=== PATIENT | male | born 1955 | race Caucasian/White ===

== ENCOUNTER 2019-10-13 07:11 | Outpatient (CLI) | payer SELFPAY ==
[2019-10-13 08:10] LABS: Lithium 1.6 mmol/L (0.6-1.2)
[2019-10-13 08:15] LABS: Hemoglobin A1C 9.8 % (<5.7)
== END 2019-10-13 07:12 | disposition home or self-care (01) ==
PROVIDERS: PCP Family Medicine; Visit Provider Nurse Practitioner Family
DX: F31.9 Bipolar disorder, unspecified (principal); Z79.899 Other long term (current) drug therapy; E11.9 Type 2 diabetes mellitus without complications
CPT/HCPCS: 36415; 80178; 83036

== ENCOUNTER 2020-02-07 11:24 | Emergency (ER) | payer MEDICAID, SELFPAY ==
[2020-02-07] VITALS (10 sets, daily range): BP systolic 111–116; BP diastolic 70–85; PULSE 64; RESP 18; TEMP 36.6; O2SAT 94–100
--- NOTE | ~2020-02-07 | XR_ITS ---
XR hip RT min 3V w AP pelvis DATE: 02/07/2020 12:13 INDICATION: Fall. Right hip pain. TECHNIQUE: AP pelvis. AP, lateral and crosstable lateral views of right hip COMPARISON: 04/26/2018 pelvis and left hip FINDINGS: The pubic symphysis and sacroiliac joints are intact. No pelvic fracture or bone destructio n is evident. No fracture, dislocation, avascular necrosis or bone destruction of the right hip. Mild bilateral hip osteoarthritis. IMPRESSION: No pelvic or right hip fracture Reviewed, dictated and finalized at location B. WORKER WIRE FENCE ERECTOR
--- NOTE | ~2020-02-07 | XR_ITS ---
EXAMINATION: XR ankle RT min 3V EXAM DATE: 02/07/2020 12:13 INDICATION: Initial encounter following injury, with pain of the right ankle. TECHNIQUE: Right ankle frontal, lateral and oblique projections obtained and reviewed. There is no p rior study for comparison. FINDINGS: The right ankle mortise appears intact. Ossifications along the distal tibiofibular synd esmosis, could be sequela from prior injury. There are no acute fractures or dislocations identified. There is no subcutaneous gas. The soft tissue is unremarkable. There are no radiopaque foreign b odies. IMPRESSION: 1. Right ankle exam without acute osseous findings. 2. Distal tibiofibular syndesmotic ossifications likely from old injury. Reviewed, dictated and finalized at location A. N RESOURCES PROJECT MANAGER
--- NOTE | 2020-02-07 12:00 | ED.GENADULT ---
HPI - General Adult General Chief complaint: Fall Stated complaint: ankle pain, hip pain Time Seen by Provider: 02/07/20 11:43 Source: patient, family and EMS Mode of arrival: EMS Limitations: no limitations History of Present Illness HPI narrative: Patient is a 64-year-old male who presents to emergency department for evaluation of injuries to the right lower extremity patient was helping move a washing machine when it fell on the right ankle causing him to fall back and has since had aching pain of the ankle and right buttock patient denies head injury syncope loss of consciousness or other injuries presents per EMS has been unable to bear weight secondary to pain. Related Data Home Medications Medication Instructions Recorded Confirmed citalopram 20 mg tablet 20 mg PO DAILY 05/04/19 11/28/19 Allergies Allergy/AdvReac Type Severity Reaction Status Date / Time codeine Allergy Unknown Unknown Verified 02/07/20 11:42 Sulfa (Sulfonamide Allergy Unknown Unknown Verified 02/07/20 11:42 Antibiotics) Review of Systems Review of Systems: All systems reviewed & are unremarkable except as noted in HPI and below PMFSH Family History Family History Father Hypertension Cerebrovascular accident Family history of coronary artery disease Family history of cardiovascular disease Mother Family history of diabetes mellitus in first degree relative Sibling Diabetes mellitus Other Family history of malignant neoplasm Social History Social History Smoking status: Current every day smoker Smoking end date: 03/21/11 Alcohol intake: never Exam Narrative: Exam Narrative: GENERAL: Well-appearing, well-nourished, and in no acute distress. HEAD: Normocephalic, atraumatic. EYES: PERRLA and EOMI. ENT: Nares clear, no rhinorrhea or epistaxis. Mucous membranes moist. NECK: Supple. No adenopathy or masses. CHEST: Clear to auscultation. No respiratory distress. No wheezes rales or rhonchi HEART: Regular rate and rhythm. No murmur heard. Normal peripheral pulses. EXTREMITIES: Abrasions of the bilateral right ankle without swelling. Tenderness of the right hip and buttock no midline cervical thoracic or lumbar tenderness. SKIN: Warm, dry, no rash. NEURO: No focal deficits. Alert and oriented x3. Cranial nerves II through XII grossly intact. Neurovascularly intact PSYCH: Normal mood and affect. Course Course Emergency Course: Patient in the room in no distress no fractures seen on skeletal imaging patient aware of treatment plan diagnosis was able to ambulate with walker will be discharged home with follow-up with primary care given reasons to return Vital Signs Vital signs: Vital Signs Temperature 97.8 F 02/07/20 11:36 Pulse Rate 64 02/07/20 11:36 Respiratory Rate 18 02/07/20 11:36 Blood Pressure 116/85 02/07/20 11:36 Pulse Oximetry 98 02/07/20 11:36 Temperature 97.8 F 02/07/20 11:36 Pulse Rate 64 02/07/20 11:36 Respiratory Rate 18 02/07/20 11:36 Blood Pressure 111/70 02/07/20 11:46 Pulse Oximetry 94 02/07/20 13:22 Medical Decision Making MDM Narrative Medical decision making narrative: Patients injury or pain is consistent with musculoskeletal etiology. No signs of neurological or vascular compromise on exam. Compartments and tisues are soft without signs of compartment syndrome. Pain is felt appropriate for further evaluation on an outpatient basis. Vital Signs Vital Signs: Vital Signs Temperature 97.8 F 02/07/20 11:36 Pulse Rate 64 02/07/20 11:36 Respiratory Rate 18 02/07/20 11:36 Blood Pressure 116/85 02/07/20 11:36 Pulse Oximetry 98 02/07/20 11:36 Temperature 97.8 F 02/07/20 11:36 Pulse Rate 64 02/07/20 11:36 Respiratory Rate 18 02/07/20 11:36 Blood Pressure 111/70 02/07/20 11:46 Pulse Oximetry 94 02/07/20 13:22 Di
[2020-02-07] MEDS: SODIUM CHLORIDE 0.9% IV 500 ML 999 ML IV CONT (12:02)
[2020-02-07] MEDS: ONDANSETRON INJ 4 MG/2 ML VIAL IV PUSH (12:34)
[2020-02-07] MEDS: MORPHINE SULFATE (*CRX) 4 MG/ML INJ IV PUSH (12:34)
--- NOTE | 2020-02-07 12:35 | PC.NURSE ---
patient resting on stretcher. back from xray. repositioned in bed. SO in room. IVF, morphine and zofran given as ordered. patient and SO both refuse crutches at this time. patient states he is unsteady at home because he does not monitor his glucose, he cannot afford a glucometer and does not follow a diet.
--- NOTE | 2020-02-07 13:28 | PC.NURSE ---
patient ambulated approximately 15-20 feet with walker. has steady gait. provider notified.
== END 2020-02-07 13:49 | disposition home or self-care (01) ==
PROVIDERS: Emergency Provider Emergency Medicine; PCP Family Medicine
DX: S79.911A Unspecified injury of right hip, initial encounter (principal); S99.911A Unspecified injury of right ankle, initial encounter; W20.8XXA Other cause of strike by thrown, projected or falling object, initial encounter
CPT/HCPCS: 73502; 73610; 96361; 96374; 96375; 99284; J2270; J2405; J7040

== ENCOUNTER 2020-05-29 07:09 | Emergency (ER) | payer MEDICAID, SELFPAY ==
[2020-05-29] VITALS (15 sets, daily range): BP systolic 133–185; BP diastolic 82–113; PULSE 58–88; RESP 11–20; TEMP 37.2; O2SAT 93–99
--- NOTE | ~2020-05-29 | US_ITS ---
EXAMINATION: US abdomen limited DATE: 05/29/2020 09:08 INDICATION: Right upper quadrant pain TECHNIQUE: Multiple grayscale and Doppler ultrasound images of the abdomen were obtained. COMPARISON: 06/12/2014 FINDINGS: Bowel gas obscures visualization of the pancreas. The visualized portions of the pancreas a re unremarkable. The liver is normal with normal echogenicity and echotexture. No surface nodularity. Normal hepatopetal flow in the main portal vein. The gallbladder is normal with no abnormal wall thi ckening, pericholecystic fluid or stones. The normal common bile duct measures 5 mm. There was no son ographic Mcgarry sign. IMPRESSION: 1. Normal sonographic study of the gallbladder. Reviewed, dictated and finalized at location A. MATE CLERK
--- NOTE | ~2020-05-29 | CT_ITS ---
EXAMINATION: CT abdomen pelvis w con EXAM DATE: 05/29/2020 10:43 INDICATION: Upper abdominal pain. TECHNIQUE: Spiral CT of the abdomen and pelvis was performed following intravenous injection of 100 m L Omnipaque 350. Axial, coronal and sagittal images were reviewed. The dose-length product (DLP) fo r this examination was 405.44 mGy-cm. The exposure was tailored according to patient size (auto mA e xposure control), and iterative reconstruction (ASIR) was used as additional dose reduction technique . Comparison is made to prior examination from 12/29/2017. FINDINGS: There are several pancreatic head calcifications indicating chronic pancreatitis. Interval development cystic pancreatic mass measuring 1.4 x 2.0 cm (see axial image 39) in medial aspect of t he pancreatic body. This may be thick peripherally enhancing wall, could be cystic pancreatic maligna ncy (benign neoplasm or pseudocyst also possible). Liver, spleen, adrenal glands are unremarkable. Gallbladder is moderately distended but otherwise unr emarkable. No biliary obstruction. Portal and splenic veins are patent. Kidneys enhance symmetrica lly. There is no hydronephrosis. The prostate is unremarkable. The bladder is unremarkable. Ther e is no retroperitoneal or pelvic lymphadenopathy. There is mild to moderate scattered arterioscler otic disease. The appendix is normal. There is moderate sigmoid predominant colonic diverticulosis. There is no ad jacent inflammatory change to suggest diverticulitis. The stomach and small bowel are unremarkable. There is expected amount of colonic stool. No free intraperitoneal gas. The heart is normal in si ze. There are no pericardial or pleural effusions. The lung bases are unremarkable. There are no o steoblastic or osteolytic lesions identified. IMPRESSION: 1. Interval development of pancreatic body cystic mass suspicious for malignancy. The differential d iagnosis includes intraductal papillary mucinous neoplasm (IPMN), mucinous cystic neoplasm (MCN), pse udocyst, and the less common serous cystadenoma and neuroendocrine tumor. MR abdomen without and wi th contrast is recommended to confirm suspicion of enhancing wall. 2. Chronic pancreatitis. 3. Colonic diverticulosis. 4. No acute intra-abdominal findings. I discussed pancreatic mass, recommendation, other findings with Nicolasa Deluna MD at 05/29/2020 11:05 MINING ENGINEER . Reviewed, dictated and finalized at location B. NG ENGINEER IMPRESSION: 1. Interval development of pancreatic body cystic mass suspicious for malignan cy. The differential diagnosis includes intraductal papillary mucinous neoplasm (IPMN), mucinous cystic neoplasm (MCN), pseudocyst, and the less common serous cystadenoma and neuroendocrine tumor. MR abdomen without and with contrast i s recommended to confirm suspicion of enhancing wall. 2. Chronic pancreatitis. 3. Colonic diverticulosis. 4. No acute intra-abdominal findings. I discussed pancreatic mass, recommendation, other findings with Nicolasa guzman MD at 05/29/2020 11:05 MINING ENGINEER .
--- NOTE | 2020-05-29 07:20 | PC.NURSE ---
Pt does not require 1:[address] Deluna.
--- NOTE | 2020-05-29 07:21 | ED.ABDPAIN ---
HPI - Abdominal Pain General Chief Complaint: Abdominal Pain Stated Complaint: ABD pain Time Seen by Provider: 05/29/20 07:11 Source: patient Mode of arrival: EMS Limitations: no limitations History of Present Illness HPI narrative: This is a 64 year old male who presents for evaluation of epigastric abdominal pain that has been present for 1 week. This pain has been constant and it radiates to left upper abdomen and his back. His pain is worse at night especially when he lays down. He has associated nausea and sob today. He denies chest pain, diaphoresis, fever, chills. He has not taken anything for his pain. He states he was diagnosed with pancreatitis 2 years and this pain feels like the same pain. He thinks he may have an enlarged prostate because he reports frequent urination at night. HE denies dysuria or hematuria. MD elicited complaint: abdominal pain Related Data Home Medications Medication Instructions Recorded Confirmed citalopram 20 mg tablet 20 mg PO DAILY 05/04/19 05/12/20 Allergies Allergy/AdvReac Type Severity Reaction Status Date / Time Sulfa (Sulfonamide Allergy Mild rash Verified 05/29/20 07:54 Antibiotics) codeine AdvReac Mild nausea Verified 05/29/20 07:54 Review of Systems Review of Systems: All systems reviewed & are unremarkable except as noted in HPI and below Constitutional: Constitutional: Denies chills and Denies fever(s) Cardiovascular: Cardiovascular: Denies chest pain Respiratory: Respiratory: Denies cough and Reports dyspnea Gastrointestinal: Gastrointestinal: Reports abdominal pain, Denies constipation, Denies diarrhea, Reports nausea and Denies vomiting Genitourinary: Genitourinary: Denies hematuria, Denies oliguria, Denies dysuria and Reports urinary frequency Musculoskeletal: Musculoskeletal: Reports back pain [facility] Past Medical History Medical History (Updated 05/29/20 @ 11:24 by Nicolasa Deluna MD) Anxiety Bipolar disorder, unspecified Essential hypertension Mixed hyperlipidemia Surgical History Surgical History (Updated 05/29/20 @ 07:22 by Nicolasa Deluna MD) S/P CABG (coronary artery bypass graft) Family History Family History Father Hypertension Cerebrovascular accident Family history of coronary artery disease Family history of cardiovascular disease Mother Family history of diabetes mellitus in first degree relative Sibling Diabetes mellitus Other Family history of malignant neoplasm Social History Social History Smoking status: Current every day smoker Smoking end date: 03/21/11 Alcohol intake: never Exam Const: General: no acute distress and alert Orientation/consciousness: patient oriented x3 Eyes: EOM: EOMs intact bilaterally Chest: Chest palpation & inspection: normal inspection of the chest Resp: Effort & Inspection: normal respiratory effort and no retractions Auscultation: clear to auscultation bilaterally Cardio: Rate: regular rate Rhythm: regular rhythm Heart sounds: no murmurs GI: GI Palp: Yes Soft to palpation, Yes Tenderness to palpation present (GI) (RUQ, LUQ, epigastric), No Guarding due to palpation present (GI) and No Rigid due to palpation Auscultation: normal bowel sounds Skin: General skin exam: normal color Rashes: no rashes Neuro: General: patient oriented x3, moves all extremities and CN's II-XI intact bilaterally Course Reevaluation(s) Reevaluation #1: I discussed with patient CT findings and he will need to follow up with PCP for further evaluation cyst. No acute findings. He reports her pain has subsided. He is comfortable with discharge home. Date: 05/29/20 Time: 11:00 Consultations Consultation #1: I Discussed case with Dr. Voss who agrees to follow up with patient regarding today's visit and pancreatic cyst Date: 05/29/20 Time: 11:20 Vital Signs
--- NOTE | 2020-05-29 07:27 | ECG_ITS ---
Measurements Intervals [place] Rate: 80 P: 74 ME: 174 QRS: 57 QRSD: 100 T: 72 QT: 390 QTc: 452 Interpretive Statements SINUS RHYTHM POSSIBLE LEFT ATRIAL ENLARGEMENT LEFT VENTRICULAR HYPERTROPHY AND ST-T CHANGE BORDERLINE ST-T WAVE ABNORMALITY- INF/LAT LEADS BORDERLINE ECG Electronically Signed On 05-29-2020 8:20:54 PRODUCTION FOREMAN by Baltazar Lang D.O.
[2020-05-29] MEDS: ONDANSETRON INJ 4 MG/2 ML VIAL IV PUSH (07:42)
[2020-05-29] MEDS: PANTOPRAZOLE SODIUM IV 40 MG VIAL IV PUSH (07:45)
--- NOTE | 2020-05-29 07:45 | PC.NURSE ---
PT MADE AWARE OF URINE SAMPLE NEEDED. URINAL PROVIDED.
[2020-05-29] MEDS: MORPHINE SULFATE (*CRX) 4 MG/ML INJ 6 MG IV PUSH (07:54)
--- NOTE | 2020-05-29 08:15 | PC.NURSE ---
Pt was assisted in attempting to urinate in a urinal for specimen collection. Was unable to go and had to leave the floor for testing.
[2020-05-29 08:24] LABS: Basophils Absolute Auto 0.1 K/mm3 (0.0-0.1); Basophils Percent Auto 0.8 % (0.2-1.2); Eosinophils Absolute Auto 0.3 K/mm3 (0-0.3); Hematocrit 45.3 % (42.0-52.0); Hemoglobin 15.3 g/dL (14.0-18.0); Immature Granulocyte Absolute 0.03 K/mm3 (0.00-0.031); Immature Granulocyte Percent A 0.3 % (0-0.5); Lymphocytes Absolute Auto 2.52 K/mm3 (0.9-3.2); Lymphocytes Percent Auto 21.9 % (18.3-44.2); Mean Corpuscular HGB Conc 33.8 g/dl (32-36); Mean Corpuscular Hemoglobin 31.4 pg (26-34); Mean Platelet Volume 9.7 fl (7.4-10.4); Monocytes Absolute Auto 0.7 K/mm3 (0.1-0.6); Monocytes Percent Auto 5.9 % (2.6-8.5); Neutrophils Absolute Auto 7.8 K/mm3 (1.3-6.7); Neutrophils Percent Auto 68.1 % (45.5-73.1); Platelet Count Result 252 k/mm3 (150-375); Red Blood Count 4.87 M/mm3 (4.6-6.20); Red Cell Distribution Width 12.2 % (11.5-14.5); White Blood Count 11.5 K/mm3 (4.5-10.0)
[2020-05-29 08:36] LABS: Alanine Aminotransferase 25 U/L (4-50); Albumin Level 4.2 g/dL (3.5-5.1); Alkaline Phosphatase 78 U/L (38-126); Anion Gap 7 mmol/L (8-16); Aspartate Amino Transferase 19 U/L (17-59); Bilirubin,Total 0.6 mg/dL (0.2-1.3); Blood Urea Nitrogen 13 mg/dL (9-20); Carbon Dioxide 25 mmol/L (22-30); Chloride 106 mmol/L (98-107); Estimated Glomerular Filt Rate > 60; Glucose 272 mg/dL (75-110); Lactic Acid Reflex 1.1 mmol/L (0.7-2.1); Lipase 35 U/L (23-300); Potassium 4.2 mmol/L (3.4-5.0); Sodium 138 mmol/L (137-145)
[2020-05-29 08:47] LABS: Lithium 0.7 mmol/L (0.6-1.2)
[2020-05-29 11:11] LABS: Add Urine Microscopic? YES; Appearance Urine Clear (Clear); Bilirubin Urine Negative (Negative); Blood Urine Negative (Negative); Color Urine Yellow (Yellow); Glucose Urine UA 2+ mg/dL (Negative); Ketones Urine Negative (Negative); Leukocyte Esterase Ur Negative LEU/UL (Negative); Mucus Urine Rare /lpf; Nitrate Urine Negative (Negative); Protein Urine 1+ mg/dL (Negative); RBC Urine 0-2 /hpf (0-2); Specific Grav Ur 1.019 (1.001-1.035); Urobilinogen Urine Negative mg/dL (<2.0); WBC Urine 0-3 /hpf
[2020-05-29] MEDS: carvediloL 6.25 MG TABLET PO (11:31)
[2020-05-29] MEDS: ENALAPRIL MALEATE 5 MG TABLET PO (11:31)
[2020-05-29] MEDS: ISOSORBIDE MONONITRATE 30 MG TAB.ER.24H PO (11:31)
== END 2020-05-29 12:15 | disposition home or self-care (01) ==
PROVIDERS: Emergency Provider General Practice; PCP Family Medicine
DX: K86.1 Other chronic pancreatitis (principal); K86.2 Cyst of pancreas; I10 Essential (primary) hypertension; E78.2 Mixed hyperlipidemia; I25.10 Atherosclerotic heart disease of native coronary artery without angina pectoris; Z95.1 Presence of aortocoronary bypass graft; Z87.891 Personal history of nicotine dependence; K57.90 Diverticulosis of intestine, part unspecified, without perforation or abscess without bleeding; I51.7 Cardiomegaly; R94.31 Abnormal electrocardiogram [ECG] [EKG]
CPT/HCPCS: 36415; 51701; 74177; 76705; 80053; 80178; 81001; 83605; 83690; 85025; 93005; 96374; 96375; 99284; A9270; C9113; J2270; J2405; Q9967

== ENCOUNTER 2020-06-04 12:13 | Outpatient (CLI) | payer MEDICAID, SELFPAY ==
--- NOTE | ~2020-06-04 | MR_ITS ---
EXAMINATION: MR abdomen wo/w con DATE: 06/04/2020 13:45 INDICATION: Cystic pancreatic lesion TECHNIQUE: Magnetic resonance imaging (MRI) of the abdomen was performed . without and with 14 mL Mul tihance intravenous contrast. Sequences included coronal T2-weighted SS-FSE, coronal and axial FS 2D -FIESTA, axial STIR FSE, axial T2-weighted SS-FSE, axial T2-weighted FS SS-FSE, axial diffusion-weigh collin SE, axial dual-echo T1-weighted FSPGR, and axial and coronal T1-weighted LAVA. Postcontrast axial T1-weighted LAVA images were obtained in a time course. Postcontrast coronal T1-weighted LAVA images were obtained. COMPARISON: None. FINDINGS: Mild dependent atelectasis in the bilateral lower lobes. Heart size is normal. No pericardial or pleu ral effusion. Liver, gallbladder, spleen, bilateral adrenal glands and kidneys are normal. 1.3 x 0.7 cm T2 hyperintense cystic lesion along the posterior superior margin of the body of the pancreas with out evident septations or solid enhancing soft tissue component. Additional 6 mm T2 hyperintense cyst ic lesion along the medial margin of the uncinate process of the pancreas, also without enhancing sof t tissue component. No definitive direct communication with the main pancreatic duct at either cystic lesion. There are a few punctate calcifications at the uncinate processes of the pancreas on the edgar or CT consistent with sequela of chronic pancreatitis. No dilation of the main pancreatic duct, commo n bile duct or intrahepatic biliary tree. Visualized bowels are unremarkable. No pathologically enlar ged abdominal lymphadenopathy. Bone marrow signal is normal throughout. IMPRESSION: 1. 13 x 7 mm cystic lesion at the body of the pancreas and 6 mm cystic lesion at the uncinate process of the pancreas, both without evident solid enhancing soft tissue component. The simple appearance, multiplicity along with the presence of a few parenchymal calcifications at the uncinate process of t he pancreas seen on CT would be most consistent with pseudocysts as sequela of chronic pancreatitis. Reviewed, dictated and finalized at location B. IMPRESSION: 1. 13 x 7 mm cystic lesion at the body of the pancreas and 6 mm cystic lesion a t the uncinate process of the pancreas, both without evident solid enhancing so ft tissue component. The simple appearance, multiplicity along with the presenc e of a few parenchymal calcifications at the uncinate process of the pancreas s een on CT would be most consistent with pseudocysts as sequela of chronic pancr eatitis.
== END 2020-06-04 12:14 | disposition home or self-care (01) ==
PROVIDERS: PCP Family Medicine; Visit Provider Family Medicine
DX: K86.2 Cyst of pancreas (principal)
CPT/HCPCS: 74183; A9577

== ENCOUNTER 2020-06-16 09:11 | Emergency (ER) | payer MEDICAID, SELFPAY ==
[2020-06-16 09:22] VITALS: BP 143/83; PULSE 65; RESP 16; TEMP 36.4; O2SAT 100
[2020-06-16 09:37] LABS: Basophils Absolute Auto 0.1 K/mm3 (0.0-0.1); Basophils Percent Auto 0.8 % (0.2-1.2); Eosinophils Absolute Auto 0.4 K/mm3 (0-0.3); Eosinophils Percent Auto 3.6 % (0-4.4); Hematocrit 47.5 % (42.0-52.0); Hemoglobin 15.5 g/dL (14.0-18.0); Immature Granulocyte Absolute 0.03 K/mm3 (0.00-0.031); Immature Granulocyte Percent A 0.3 % (0-0.5); Lymphocytes Absolute Auto 2.81 K/mm3 (0.9-3.2); Lymphocytes Percent Auto 27.7 % (18.3-44.2); Mean Corpuscular HGB Conc 32.6 g/dl (32-36); Mean Corpuscular Hemoglobin 31.2 pg (26-34); Mean Corpuscular Volume 95.6 fl (80-100); Mean Platelet Volume 9.8 fl (7.4-10.4); Monocytes Absolute Auto 0.7 K/mm3 (0.1-0.6); Monocytes Percent Auto 7.1 % (2.6-8.5); Neutrophils Absolute Auto 6.1 K/mm3 (1.3-6.7); Neutrophils Percent Auto 60.5 % (45.5-73.1); Platelet Count Result 280 k/mm3 (150-375); Red Blood Count 4.97 M/mm3 (4.6-6.20); Red Cell Distribution Width 12.8 % (11.5-14.5); White Blood Count 10.1 K/mm3 (4.5-10.0)
[2020-06-16 10:03] LABS: Alanine Aminotransferase 27 U/L (4-50); Albumin Level 4.6 g/dL (3.5-5.1); Alkaline Phosphatase 66 U/L (38-126); Anion Gap 6 mmol/L (8-16); Aspartate Amino Transferase 29 U/L (17-59); Bilirubin,Total 0.9 mg/dL (0.2-1.3); Blood Urea Nitrogen 13 mg/dL (9-20); Carbon Dioxide 26 mmol/L (22-30); Chloride 105 mmol/L (98-107); Estimated CRCL calculation 99 ml/min; Estimated Glomerular Filt Rate > 60; Glucose 262 mg/dL (75-110); Lipase 239 U/L (23-300); Potassium 4.7 mmol/L (3.4-5.0); Sodium 137 mmol/L (137-145)
[2020-06-16 10:20] LABS: Add Urine Microscopic? YES; Appearance Urine Cloudy (Clear); Bacteria Urine Trace /hpf; Bilirubin Urine Negative (Negative); Blood Urine Negative (Negative); Color Urine Yellow (Yellow); Glucose Urine UA 3+ mg/dL (Negative); Ketones Urine Negative (Negative); Leukocyte Esterase Ur 2+ LEU/UL (Negative); Mucus Urine Rare /lpf; Nitrate Urine Positive (Negative); Protein Urine 1+ mg/dL (Negative); Specific Grav Ur 1.012 (1.001-1.035); Urobilinogen Urine Negative mg/dL (<2.0); WBC Urine >75 /hpf
--- NOTE | 2020-06-16 12:25 | ED.ABDPAIN ---
HPI - Abdominal Pain General Chief Complaint: Abdominal Pain Stated Complaint: ABD PAIN HX PANCREATITIS Time Seen by Provider: 06/16/20 09:52 Source: patient Mode of arrival: ambulatory Limitations: no limitations History of Present Illness HPI narrative: 64-year-old male Essentially 2 complaints First is that he has been unable to get into see a investment manager to follow-up on the pancreatic masses which were incidentally found during a recent hospitalization It looks like there was concern on the initial CT that they could represent malignancy but a subsequent follow-up MRI report is more reassuring More acutely he is complaining of pain in his lower abdomen shooting into his testicles bilaterally and associated with dysuria and urinary frequency for the last 2 or 3 days He does not have back pain or a fever Related Data Home Medications Medication Instructions Recorded Confirmed citalopram 20 mg tablet 20 mg PO DAILY 05/04/19 06/02/20 Allergies Allergy/AdvReac Type Severity Reaction Status Date / Time Sulfa (Sulfonamide Allergy Mild rash Verified 06/02/20 13:28 Antibiotics) codeine AdvReac Mild nausea Verified 06/02/20 13:28 Review of Systems Review of Systems: All systems reviewed & are unremarkable except as noted in HPI and below Constitutional: Constitutional: Denies chills, Reports fatigue, Denies fever(s), Denies headache(s) and Denies weakness Eyes: Eyes: Reports no additional eye complaints and Denies change in vision ENT: Denies headache(s), Denies epistaxis, Denies nasal congestion and Denies sore throat Cardiovascular: Cardiovascular: Denies chest pain, Denies leg edema, Denies palpitations and Denies dyspnea Respiratory: Respiratory: Denies cough, Denies dyspnea and Denies wheezing Gastrointestinal: Gastrointestinal: Reports abdominal pain, Denies diarrhea, Reports nausea and Denies vomiting Genitourinary: Genitourinary: Denies hematuria, Reports dysuria, Reports testicular pain and Reports urinary frequency Musculoskeletal: Musculoskeletal: Denies deformity, Denies arthralgias, Denies joint swelling, Denies muscle weakness and Denies numbness Integumentary/Breasts: Skin/Breast: Denies rash and Denies wounds Neurologic: Denies headache(s), Denies focal weakness, Denies numbness and Denies weakness Psychiatric: Psychiatric: Reports no additional psychiatric complaints Endocrine: Endocrine: Denies fatigue and Denies palpitations Hematologic/Lymphatic: Hematologic/Lymphatic: Denies easy bleeding and Denies easy bruising Allergic/Immunologic: Allergic/Immunologic: Denies wheezing [facility] Past Medical History Medical History (Updated 06/16/20 @ 12:31 by Aguilar Magaña MD) Anxiety Bipolar disorder, unspecified Cystic mass of pancreas Essential hypertension Mixed hyperlipidemia Surgical History Surgical History S/P CABG (coronary artery bypass graft) Family History Family History Father Hypertension Cerebrovascular accident Family history of coronary artery disease Family history of cardiovascular disease Mother Family history of diabetes mellitus in first degree relative Sibling Diabetes mellitus Other Family history of malignant neoplasm Social History Social History (Updated 06/02/20 @ 17:55 by Erika Mayo) Smoking status: Current every day smoker Alcohol intake: never Exam Const: General: no acute distress, well developed and awake Orientation/consciousness: patient oriented x3 (alert) Limitations: no limitations HENMT: Head: normocephalic and atraumatic Ears: external ears normal General nose exam: No nasal discharge present and no epistaxis Face and sinus: face symmetric Eyes: Conjunctivae: conjunctivae normal Sclera: sclerae normal EOM: EOMs intact bilaterally Neck: Neck: normal visual inspection, supple and no JVD Chest: Chest pa
[2020-06-16 12:48] VITALS: BP 137/95; PULSE 68; RESP 18; O2SAT 100
== END 2020-06-16 12:50 | disposition home or self-care (01) ==
PROVIDERS: Emergency Provider Emergency Medicine; PCP Family Medicine
DX: N41.0 Acute prostatitis (principal); K86.2 Cyst of pancreas; I10 Essential (primary) hypertension; E78.2 Mixed hyperlipidemia; Z95.1 Presence of aortocoronary bypass graft; I25.10 Atherosclerotic heart disease of native coronary artery without angina pectoris; F41.9 Anxiety disorder, unspecified; F31.9 Bipolar disorder, unspecified; F17.200 Nicotine dependence, unspecified, uncomplicated
CPT/HCPCS: 36415; 80053; 81001; 83690; 85025; 87077; 87086; 87088; 87186; 99283

== ENCOUNTER → 2020-07-05 02:34 | Outpatient (CLI) | payer MEDICAID, SELFPAY ==
[2020-07-05 19:43] LABS: SARS-CoV-2 RNA PCR Negative
== END ==
PROVIDERS: PCP Family Medicine; Visit Provider Internal Medicine Gastroenterology
DX: Z01.812 Encounter for preprocedural laboratory examination (principal); Z20.822 Contact with and (suspected) exposure to COVID-19
CPT/HCPCS: C9803; U0003; U0005

== ENCOUNTER 2020-07-09 02:33 | Day surgery (SDC) | payer MEDICAID, SELFPAY ==
[2020-06-26 14:33] VITALS: BMI 23.3
--- NOTE | 2020-07-09 11:09 | WPDANESEPPF ---
Anes - Initial Pre Proc Eval Procedure: Operation Date: 07/09/20 11:45 Proposed Procedures p Esophagogastroduodenoscopy & Colonoscopy - Kamron Oden MD Date/Time: 07/09/20 11:09 Surgeon: Kamron Oden MD Pre Op Diagnosis: change in bowel habits, weight loss, nausea Patient Data Age: 64 Gender: M Height: 5 ft 11 in Weight: 76 kg Allergies Allergy/AdvReac Type Severity Reaction Status Date / Time ciprofloxacin [From Cipro] Allergy Mild Rash Verified 07/09/20 11:03 Sulfa (Sulfonamide Allergy Mild rash Verified 07/09/20 11:03 Antibiotics) codeine AdvReac Mild nausea Verified 07/09/20 11:03 Home Medications Medication Instructions Recorded Confirmed Type lovastatin 20 mg tablet 20 mg PO QPM #30 tablet 01/29/20 07/09/20 Rx isosorbide mononitrate 30 mg 30 mg PO DAILY #30 tablet 03/04/20 07/09/20 Rx tablet,extended release 24 hr enalapril maleate 5 mg tablet 5 mg PO DAILY #30 tablet 04/29/20 07/09/20 Rx carvedilol 6.25 mg tablet 6.25 mg PO Q12H #60 tablet 05/12/20 07/09/20 Rx flash glucose scanning reader #1 ea 05/12/20 06/17/20 Rx flash glucose sensor #6 units 05/12/20 06/17/20 Rx blood sugar diagnostic #120 each 05/13/20 06/17/20 Rx blood-glucose meter #1 each 05/13/20 06/17/20 Rx lancets 33 gauge #100 each 05/13/20 06/17/20 Rx metformin 1,000 mg tablet 1,000 mg PO BID #60 tablet 06/30/20 07/09/20 Rx alprazolam 0.5 mg tablet 0.5 mg PO DAILY PRN #30 tablet 07/07/20 07/09/20 Rx lithium carbonate 600 mg PO BID 07/09/20 07/09/20 History Patient hx anesthesia problems: none Family hx anesthesia problems: none PMFSH Past Medical History Medical History (Updated 06/19/20 @ 11:51 by Kamron Oden MD) Anxiety Bipolar disorder, unspecified Bowel habit changes Cystic mass of pancreas Essential hypertension Mixed hyperlipidemia Prostatitis Weight loss Surgical History Surgical History S/P CABG (coronary artery bypass graft) Family History Family History Father Hypertension Cerebrovascular accident Family history of coronary artery disease Family history of cardiovascular disease Mother Family history of diabetes mellitus in first degree relative Sibling Diabetes mellitus Other Family history of malignant neoplasm Social History Social History (Updated 06/19/20 @ 11:35 by Genna Douglas CMA) Smoking packs per day: 1 Smoking cigarettes per day: 20.0 Years smoked: 50 Smoking pack-years: 50.00 Smoking status: Current every day smoker Tobacco type: cigarettes Alcohol intake: never Substance use: never Living arrangements: with family Gender identity (if verbalized by the patient): Male Spiritual care concerns: No Anes - Eval Final PreProcedure Day of Procedure 07/09/20 11:09 Patient weight: overweight Heart: regular rate and rhythm Lungs: clear to auscultation Airway: Mallampati scale class II Neurological: alert and oriented Last oral intake: >/= 8 hours ASA classification: III Emergent: no Anesthetic plan: proceed Anesthesia type and monitoring: general GIVS and standard monitoring Informed Consent: The patient's anesthetic plan and its attendant risks and benefits were discussed with the patient/family/POA. Questions were solicited and answers provided to the satisfaction of the patient/family/POA.
[2020-07-09 11:11] VITALS: BP 139/84; PULSE 82; RESP 26; TEMP 36.6; O2SAT 99; BMI 21.9
[2020-07-09] MEDS: LACTATED RINGERS 1,000 ML 150 ML IV CONT (11:22)
[2020-07-09 11:23] LABS: Glucose Point of Care 217 (65-105)
--- NOTE | 2020-07-09 12:16 | WPDHPUPDATE1 ---
History and Physical Update Update Date/Time: 07/09/20 12:16 History and Physical has been reviewed, including an updated exam of the patient. There are NO changes in the patient's condition. Risks, benefits, and alternatives have been discussed and questions answered. Patient agrees to proceed with procedure.
[2020-07-09] MEDS: BENZOCAINE (*SP) 60 ML SPRAY CAN (HURRICAINE) 1 SPRAY MUCOUS MEM (12:30)
[2020-07-09 12:59] VITALS: BP 127/78; PULSE 72; RESP 17; O2SAT 97
[2020-07-09 13:09] VITALS: BP 114/73; PULSE 70; RESP 16; O2SAT 97
[2020-07-09 13:19] VITALS: BP 149/93; PULSE 64; RESP 18; O2SAT 100
== END 2020-07-09 13:31 | disposition home or self-care (01) ==
PROVIDERS: PCP Family Medicine; Visit Provider Internal Medicine Gastroenterology
PROC: 0DJ08ZZ Inspection of Upper Intestinal Tract, Via Natural or Artificial Opening Endoscopic (ICD-10-PCS; CPT 43235; principal; 2020-07-09 11:45)
DX: R63.4 Abnormal weight loss (principal); R19.4 Change in bowel habit; D12.3 Benign neoplasm of transverse colon; K57.30 Diverticulosis of large intestine without perforation or abscess without bleeding; K64.8 Other hemorrhoids; K29.50 Unspecified chronic gastritis without bleeding; K31.7 Polyp of stomach and duodenum; I10 Essential (primary) hypertension; E78.2 Mixed hyperlipidemia; F41.9 Anxiety disorder, unspecified; F31.9 Bipolar disorder, unspecified; Z79.84 Long term (current) use of oral hypoglycemic drugs; Z95.1 Presence of aortocoronary bypass graft; F17.210 Nicotine dependence, cigarettes, uncomplicated
CPT/HCPCS: 45385; 43239; 43251; 82948; 88305; J7120

== ENCOUNTER 2020-08-16 03:00 | Emergency (ER) | payer OTHER, SELFPAY ==
[2020-08-16] VITALS (9 sets, daily range): BP systolic 147–185; BP diastolic 87–104; PULSE 63–77; RESP 13–29; TEMP 36.9; O2SAT 97–100
--- NOTE | ~2020-08-16 | CT_ITS ---
EXAMINATION: CT abdomen pelvis w con DATE: 08/16/2020 05:03 INDICATION: Left abdominal pain. TECHNIQUE: Computed tomography (CT) of the abdomen and pelvis was performed with 100 mL Omnipaque 350 intravenous contrast. Automated exposure control and iterative reconstruction technique were employe d. The dose-length product was 359.58 mGy-cm. COMPARISON: CT abdomen and pelvis 05/29/2020, 12/29/2017 FINDINGS: The visualized portions of the lung bases demonstrate mild atelectasis. A calcified right l elayne nodule is consistent with old granulomatous disease. No pleural effusion. The heart size is maciel l. There are coronary artery calcifications. No pericardial effusion. Calcifications in the liver and spleen are consistent with old granulomatous disease. The gallbladder is normal in size. There is a 13 mm hypodense mass at the junction of the body and tail of the pancreas. The adrenal glands and kid neys are normal. The prostate is moderately enlarged. There is diverticulosis of the colon without ev idence of diverticulitis. There is a 2.4 x 1.6 cm mass to the left of the stomach with attenuation of 21 HU. The appendix is normal. There are no pathologically enlarged lymph nodes. There is no free in traperitoneal fluid. There is mild thoracolumbar spondylosis. IMPRESSION: 1. 13 mm mass in the pancreas without change in size from 05/29/2020, but new from 12/29/2017. This fi nding may be benign or malignant. Consider abdomen MRI without and with contrast. 2. New 2.5 x 1.6 cm mass to the left of the stomach. The differential diagnosis includes fat necrosis , metastatic disease, and ascites. Reviewed, dictated and finalized at location A. IMPRESSION: 1. 13 mm mass in the pancreas without change in size from 05/29/2020, but new fr om 12/29/2017. This finding may be benign or malignant. Consider abdomen MRI wi thout and with contrast. 2. New 2.5 x 1.6 cm mass to the left of the stomach. The differential diagnosis includes fat necrosis, metastatic disease, and ascites.
[2020-08-16 03:19] LABS: Basophils Absolute Auto 0.1 K/mm3 (0.0-0.1); Basophils Percent Auto 0.6 % (0.2-1.2); Eosinophils Absolute Auto 0.5 K/mm3 (0-0.3); Eosinophils Percent Auto 3.5 % (0-4.4); Hematocrit 46.5 % (42.0-52.0); Hemoglobin 15.4 g/dL (14.0-18.0); Immature Granulocyte Absolute 0.05 K/mm3 (0.00-0.031); Immature Granulocyte Percent A 0.3 % (0-0.5); Lymphocytes Absolute Auto 4.15 K/mm3 (0.9-3.2); Lymphocytes Percent Auto 28.8 % (18.3-44.2); Mean Corpuscular HGB Conc 33.1 g/dl (32-36); Mean Corpuscular Hemoglobin 31.6 pg (26-34); Mean Corpuscular Volume 95.5 fl (80-100); Monocytes Absolute Auto 0.9 K/mm3 (0.1-0.6); Monocytes Percent Auto 5.9 % (2.6-8.5); Neutrophils Absolute Auto 8.8 K/mm3 (1.3-6.7); Neutrophils Percent Auto 60.9 % (45.5-73.1); Platelet Count Result 246 k/mm3 (150-375); Red Blood Count 4.87 M/mm3 (4.6-6.20); Red Cell Distribution Width 12.9 % (11.5-14.5); White Blood Count 14.4 K/mm3 (4.5-10.0)
[2020-08-16 04:10] LABS: Add Urine Microscopic? YES; Appearance Urine Clear (Clear); Bilirubin Urine Negative (Negative); Blood Urine Negative (Negative); Color Urine Yellow (Yellow); Glucose Urine UA 1+ mg/dL (Negative); Ketones Urine Negative (Negative); Leukocyte Esterase Ur Negative LEU/UL (Negative); Nitrate Urine Negative (Negative); Protein Urine 1+ mg/dL (Negative); RBC Urine 0-2 /hpf (0-2); Specific Grav Ur 1.012 (1.001-1.035); Urobilinogen Urine Negative mg/dL (<2.0); WBC Urine 0-3 /hpf
[2020-08-16 04:17] LABS: Alanine Aminotransferase 35 U/L (4-50); Albumin Level 4.4 g/dL (3.5-5.1); Alkaline Phosphatase 81 U/L (38-126); Anion Gap 8 mmol/L (8-16); Aspartate Amino Transferase 24 U/L (17-59); Bilirubin,Total 0.4 mg/dL (0.2-1.3); Blood Urea Nitrogen 13 mg/dL (9-20); Calcium 10.5 mg/dL (8.4-10.2); Carbon Dioxide 26 mmol/L (22-30); Chloride 106 mmol/L (98-107); Estimated CRCL calculation 75 ml/min; Estimated Glomerular Filt Rate > 60; Glucose 206 mg/dL (75-110); Lipase 152 U/L (23-300); Potassium 4.3 mmol/L (3.4-5.0); Sodium 140 mmol/L (137-145)
--- NOTE | 2020-08-16 05:37 | ED.ABDPAIN ---
HPI - Abdominal Pain General Chief Complaint: Abdominal Pain <Rahul Vargas MD - Last Filed: 08/16/20 05:39> Stated Complaint: ABD PAIN-EPIGASTRIC TO LEFT FLANK <Rahul Vargas MD - Last Filed: 08/16/20 05:39> Time Seen by Provider: 08/16/20 03:11 <Rahul Vargas MD - Last Filed: 08/16/20 05:39> History of Present Illness HPI narrative: Patient is a 64-year-old male who presents ER with epigastric pain rating down his left side. Patient has chronic pain that is similar to this related to pancreatic cancer in the tail of pancreas. He is scheduled for an excision in a couple weeks. Reports that the pain started off like his typical pain but then increased and lasted a longer amount of time. It has since abated. No fevers or chills or sweats. Reports constipation for 3 days. No abdominal distention. Cannot identify aggravating or alleviating factors. <Rahul Vargas MD - Last Filed: 08/16/20 05:39> Related Data Home Medications: Home Medications Medication Instructions Recorded Confirmed lithium carbonate 600 mg PO BID 07/09/20 08/12/20 [id number] See Rx Instructions PO .COMPLEX 07/11/20 08/12/20 36,000-114,000-180,000 unit capsule,delay rel acetaminophen 500 mg oral powder 500 mg PO Q6H 08/12/20 08/12/20 packet <Rahul Vargas MD - Last Filed: 08/16/20 05:39> Allergies/Adverse Reactions: Allergies Allergy/AdvReac Type Severity Reaction Status Date / Time ciprofloxacin [From Cipro] Allergy Mild Rash Verified 08/12/20 08:02 Sulfa (Sulfonamide Allergy Mild rash Verified 08/12/20 08:02 Antibiotics) codeine AdvReac Mild nausea Verified 08/12/20 08:02 <Rahul Vargas MD - Last Filed: 08/16/20 05:39> Review of Systems Review of Systems: All systems reviewed & are unremarkable except as noted in HPI and below <Rahul Vargas MD - Last Filed: 08/16/20 05:39> Constitutional: Constitutional: Denies chills and Denies fever(s) <Rahul Vargas MD - Last Filed: 08/16/20 05:39> Gastrointestinal: Gastrointestinal: Reports abdominal pain, Denies bloating, Reports constipation, Denies diarrhea, Denies nausea and Denies vomiting <Rahul Vargas MD - Last Filed: 08/16/20 05:39> Genitourinary: Genitourinary: Denies oliguria and Denies urinary frequency <Rahul Vargas MD - Last Filed: 08/16/20 05:39> [facility] Past Medical History Medical History: Medical History Anxiety Bipolar disorder, unspecified BMI 22.0-22.9, adult Bowel habit changes Colonoscopy planned Cystic mass of pancreas Essential hypertension Mixed hyperlipidemia Prostatitis Weight loss <Rahul Vargas MD - Last Filed: 08/16/20 05:39> Surgical History Surgical History: Surgical History History of endoscopy S/P CABG (coronary artery bypass graft) <Rahul Vargas MD - Last Filed: 08/16/20 05:39> Family History Family History: Family History Father Hypertension Cerebrovascular accident Family history of coronary artery disease Family history of cardiovascular disease CHF (congestive heart failure) Mother Family history of diabetes mellitus in first degree relative CHF (congestive heart failure) Sibling Diabetes mellitus Renal failure Other Family history of malignant neoplasm <Rahul Vargas MD - Last Filed: 08/16/20 05:39> Social History Social History: Social History Smoking packs per day: 1 Smoking cigarettes per day: 20.0 Years smoked: 50 Smoking pack-years: 50.00 Tobacco type: cigarettes Second hand tobacco smoke exposure: Yes Alcohol intake: never Substance use: never Substance use type: does not use Additional occupation/education comments
== END 2020-08-16 09:48 | disposition home or self-care (01) ==
PROVIDERS: Emergency Medicine; Emergency Provider Emergency Medicine; PCP Family Medicine
DX: C78.89 Secondary malignant neoplasm of other digestive organs (principal); C25.2 Malignant neoplasm of tail of pancreas; F31.9 Bipolar disorder, unspecified; I10 Essential (primary) hypertension; E78.2 Mixed hyperlipidemia; F17.210 Nicotine dependence, cigarettes, uncomplicated
CPT/HCPCS: 36415; 74177; 80053; 81001; 83690; 85025; 99284; Q9967

== ENCOUNTER 2020-09-24 15:29 | Outpatient (CLI) | payer OTHER, SELFPAY ==
[2020-09-24 16:07] LABS: Basophils Absolute Auto 0.1 K/mm3 (0.0-0.1); Basophils Percent Auto 0.8 % (0.2-1.2); Eosinophils Absolute Auto 0.6 K/mm3 (0-0.3); Eosinophils Percent Auto 4.5 % (0-4.4); Hematocrit 38.9 % (42.0-52.0); Hemoglobin 12.5 g/dL (14.0-18.0); Immature Granulocyte Absolute 0.05 K/mm3 (0.00-0.031); Immature Granulocyte Percent A 0.4 % (0-0.5); Lymphocytes Absolute Auto 3.43 K/mm3 (0.9-3.2); Lymphocytes Percent Auto 25.9 % (18.3-44.2); Mean Corpuscular HGB Conc 32.1 g/dl (32-36); Mean Corpuscular Hemoglobin 30.9 pg (26-34); Mean Corpuscular Volume 96.3 fl (80-100); Mean Platelet Volume 9.9 fl (7.4-10.4); Monocytes Absolute Auto 1.1 K/mm3 (0.1-0.6); Monocytes Percent Auto 8.2 % (2.6-8.5); Neutrophils Percent Auto 60.2 % (45.5-73.1); Platelet Count Result 446 k/mm3 (150-375); Red Blood Count 4.04 M/mm3 (4.6-6.20); Red Cell Distribution Width 12.8 % (11.5-14.5); White Blood Count 13.2 K/mm3 (4.5-10.0)
[2020-09-24 16:18] LABS: Alanine Aminotransferase 36 U/L (4-50); Alkaline Phosphatase 87 U/L (38-126); Anion Gap 5 mmol/L (8-16); Aspartate Amino Transferase 26 U/L (17-59); Bilirubin,Total 0.1 mg/dL (0.2-1.3); Blood Urea Nitrogen 14 mg/dL (9-20); Calcium 10.9 mg/dL (8.4-10.2); Carbon Dioxide 29 mmol/L (22-30); Chloride 104 mmol/L (98-107); Estimated Glomerular Filt Rate > 60; Glucose 165 mg/dL (75-110); Magnesium 1.7 mg/dL (1.6-2.3); Phosphorus 3.4 mg/dL (2.5-4.5); Potassium 4.2 mmol/L (3.4-5.0); Sodium 138 mmol/L (137-145)
== END 2020-09-24 15:30 | disposition home or self-care (01) ==
LOC: ANHLAB 15:36
PROVIDERS: PCP Family Medicine
DX: R11.2 Nausea with vomiting, unspecified (principal)
CPT/HCPCS: 36415; 80053; 83735; 84100; 85025

== ENCOUNTER 2020-09-24 16:05 | Outpatient (CLI) | payer OTHER, SELFPAY ==
--- NOTE | ~2020-09-24 | CT_ITS ---
EXAMINATION: CT abdomen pelvis w con DATE: 09/24/2020 16:45 INDICATION: Nausea and vomiting TECHNIQUE: Computed tomography (CT) of the abdomen and pelvis was performed with 100 cc Omnipaque 350 intravenous contrast. The dose-length product was 334.68 mGy-cm. Automated exposure control and iter ative reconstruction technique were employed. COMPARISON: CT dated 08/08/2020. FINDINGS: There is abnormal thickening with mucosal enhancement of the stomach and diffusely througho ut the small bowel, compatible with gastroenteritis. Small amount of free fluid in the abdomen and pe lvis. There are surgical changes of the pancreas with small circumscribed fluid action in the pancreatic be d which may represent postoperative seroma/hematoma. Small low-density lesion to the left of the stom ach is identified, image 32, measuring 2.1 cm maximum axial dimension. The liver, adrenal glands and kidneys are unremarkable. Gallbladder is distended. There is a 1.9 cm l ymph node along the lesser curvature of the stomach, image 32. There are mildly enlarged portal caval lymph nodes. Nonobstructive bowel gas pattern. There is atherosclerosis of the aorta without aneurys m. Prostate is enlarged. No focal lytic or blastic lesions. Mild lumbar spondylosis. IMPRESSION: 1. Abnormal fluid thickening with mucosal enhancement of the stomach and diffusely throughout the sma ll bowel, suspicious for gastroenteritis. 2: Postsurgical changes of the pancreas with focal circumscribed fluid collection, measuring 5.7 x 2. 4 cm greatest axial dimension, in the pancreatic bed, possibly postoperative seroma/hematoma. Infecti on is not excluded in the appropriate clinical setting. 3: Focal low-density mass left upper abdomen just left lateral to the stomach. Differential diagnosis includes metastatic disease, focal fat necrosis. 4: Mild lymphadenopathy along the lesser curvature in portacaval locations of the upper abdomen, joey picious for metastases. Reviewed, dictated and finalized at location A. IMPRESSION: 1. Abnormal fluid thickening with mucosal enhancement of the stomach and diffus sabine throughout the small bowel, suspicious for gastroenteritis. 2: Postsurgical changes of the pancreas with focal circumscribed fluid collecti on, measuring 5.7 x 2.4 cm greatest axial dimension, in the pancreatic bed, pos sibly postoperative seroma/hematoma. Infection is not excluded in the appropria te clinical setting. 3: Focal low-density mass left upper abdomen just left lateral to the stomach. Differential diagnosis includes metastatic disease, focal fat necrosis. 4: Mild lymphadenopathy along the lesser curvature in portacaval locations of the upper abdomen, suspicious for metastases.
[2020-09-24 16:43] LABS: Estimated Glomerular Filt Rate > 60
== END 2020-09-24 16:06 | disposition home or self-care (01) ==
PROVIDERS: PCP Family Medicine
DX: R11.2 Nausea with vomiting, unspecified (principal)
CPT/HCPCS: 36415; 74177; 80053; 83735; 84100; 85025; Q9967

== ENCOUNTER 2020-10-04 07:54 | Outpatient (CLI) | payer OTHER, SELFPAY ==
[2020-10-04 08:27] LABS: Basophils Absolute Auto 0.1 K/mm3 (0.0-0.1); Basophils Percent Auto 0.7 % (0.2-1.2); Eosinophils Absolute Auto 0.4 K/mm3 (0-0.3); Eosinophils Percent Auto 2.7 % (0-4.4); Hematocrit 42.1 % (42.0-52.0); Hemoglobin 13.6 g/dL (14.0-18.0); Immature Granulocyte Absolute 0.06 K/mm3 (0.00-0.031); Immature Granulocyte Percent A 0.4 % (0-0.5); Lymphocytes Absolute Auto 3.57 K/mm3 (0.9-3.2); Lymphocytes Percent Auto 26.6 % (18.3-44.2); Mean Corpuscular HGB Conc 32.3 g/dl (32-36); Mean Corpuscular Hemoglobin 31.7 pg (26-34); Mean Corpuscular Volume 98.1 fl (80-100); Mean Platelet Volume 9.7 fl (7.4-10.4); Monocytes Absolute Auto 0.9 K/mm3 (0.1-0.6); Monocytes Percent Auto 6.7 % (2.6-8.5); Neutrophils Absolute Auto 8.4 K/mm3 (1.3-6.7); Neutrophils Percent Auto 62.9 % (45.5-73.1); Platelet Count Result 394 k/mm3 (150-375); Red Blood Count 4.29 M/mm3 (4.6-6.20); Red Cell Distribution Width 13.6 % (11.5-14.5); White Blood Count 13.4 K/mm3 (4.5-10.0)
[2020-10-04 08:41] LABS: Alanine Aminotransferase 63 U/L (4-50); Albumin Level 4.3 g/dL (3.5-5.1); Alkaline Phosphatase 114 U/L (38-126); Anion Gap 8 mmol/L (8-16); Aspartate Amino Transferase 36 U/L (17-59); Bilirubin,Total 0.4 mg/dL (0.2-1.3); Blood Urea Nitrogen 17 mg/dL (9-20); Calcium 10.2 mg/dL (8.4-10.2); Carbon Dioxide 24 mmol/L (22-30); Chloride 106 mmol/L (98-107); Estimated Glomerular Filt Rate > 60; Glucose 257 mg/dL (65-110); Magnesium 1.7 mg/dL (1.6-2.3); Phosphorus 3.5 mg/dL (2.5-4.5); Potassium 4.1 mmol/L (3.4-5.0); Sodium 138 mmol/L (137-145)
== END 2020-10-04 07:55 | disposition home or self-care (01) ==
PROVIDERS: PCP Family Medicine
DX: R11.2 Nausea with vomiting, unspecified (principal)
CPT/HCPCS: 36415; 80053; 83735; 84100; 85025

== ENCOUNTER 2020-12-10 10:21 | Outpatient (CLI) | payer OTHER, SELFPAY ==
--- NOTE | ~2020-12-10 | XR_ITS ---
EXAMINATION: XR chest 2V 12/10/2020 10:44 INDICATION: Cough PROCEDURE: 2 view chest COMPARISON: Comparison to multiple prior studies sequentially, with oldest reviewed study dated 06/11. FINDINGS: The lungs are clear. The cardiomediastinal silhouette is within normal limits. There are no pleural effusions. There is no pneumothorax suspected. Status post median sternotomy for CABG. IMPRESSION: 1: NO ACUTE CARDIOPULMONARY DISEASE. Reviewed, dictated and finalized at location A.
== END 2020-12-10 10:22 | disposition home or self-care (01) ==
LOC: ANHIMG 10:26
PROVIDERS: PCP Family Medicine; Visit Provider Nurse Practitioner Family
DX: R05 Cough (principal)
CPT/HCPCS: 71046

== ENCOUNTER 2021-03-29 05:41 | Inpatient (IN) | payer OTHER, SELFPAY ==
[2021-03-29] VITALS (8 sets, daily range): BP systolic 131–167; BP diastolic 75–96; PULSE 76–85; RESP 14–29; TEMP 36.4–36.7; O2SAT 97–100; BMI 18.3
--- NOTE | ~2021-03-29 | CT_ITS ---
EXAMINATION: CTA chest PE abdomen pel DATE: 03/29/2021 07:29 LOGISTICAL ENGINEER INDICATION: Shortness of breath. History of pancreatic cancer. Abdomen pain. TECHNIQUE: Computed tomographic angiography (CTA) of the chest, abdomen and pelvis was performed with 100 mL Omnipaque-350 intravenous contrast. The dose-length product was 544.66 mGy-cm. Maximum intens ity projection 3D-reconstructions of the aorta and other arteries were constructed by the [employer] t on a separate workstation. Automated exposure control and iterative reconstruction technique were e mployed. COMPARISON: CT dated 09/24/2020. FINDINGS: Heart size normal. No significant pleural or pericardial effusion. Study is technically bo quate without evidence for pulmonary embolism. No thoracic lymphadenopathy. The upper abdomen is regla sly unremarkable. There are scattered areas of focal endobronchial soft tissue, likely mucus. No pneu mothorax. Mild emphysema. There is dextroscoliosis of the thoracic spine. Status post median sternoto my for CABG. No pneumothorax. Abdomen/pelvis: There is mild thickening of the stomach which is nonspecific. There are surgical changes in the left upper abdomen. There is thickening of the pylorus which contains debris. No definite obstruction. The re is atherosclerosis. Bladder is moderately distended. No free air or free fluid. There are surgical changes of the pancreas. No definite lymphadenopathy is identified. No focal lytic or blastic lesion s. Lack of intraperitoneal fat limits evaluation for lymphadenopathy. Moderate thoracic and lumbar sp ondylosis. Mild osteoarthritis of the hips. No focal lytic or blastic lesions. IMPRESSION: 1. No acute cardiopulmonary disease. No evidence for pulmonary embolism. 2: Mild emphysema. 3: Mild thickening of the stomach, nonspecific, although gastritis is not excluded. Reviewed, dictated and finalized at location A. STICAL ENGINEER IMPRESSION: 1. No acute cardiopulmonary disease. No evidence for pulmonary embolism. 2: Mild emphysema. 3: Mild thickening of the stomach, nonspecific, although gastritis is not excl uded.
--- NOTE | 2021-03-29 05:52 | ECG_ITS ---
Measurements Intervals [place] Rate: 83 P: 79 CO: 167 QRS: 76 QRSD: 100 T: 78 QT: 391 QTc: 462 Interpretive Statements SINUS RHYTHM POSSIBLE LEFT ATRIAL ENLARGEMENT LEFT VENTRICULAR HYPERTROPHY AND ST-T CHANGE BORDERLINE ST-T WAVE ABNORMALITY- INF/HIGH LAT LEADS BASELINE ARTIFACT- V3-V5 BORDERLINE ECG Electronically Signed On 03-29-2021 8:39:43 MECHANICAL EQUIPMENT SALES ENGINEER by Baltazar Lang D.O.
[2021-03-29 06:04] LABS: Basophils Absolute Auto 0.1 K/mm3 (0.0-0.1); Basophils Percent Auto 0.6 % (0.2-1.2); Eosinophils Absolute Auto 0.1 K/mm3 (0-0.3); Eosinophils Percent Auto 1.3 % (0-4.4); Hematocrit 40.9 % (42.0-52.0); Hemoglobin 13.6 g/dL (14.0-18.0); Immature Granulocyte Absolute 0.05 K/mm3 (0.00-0.031); Immature Granulocyte Percent A 0.5 % (0-0.5); Lymphocytes Absolute Auto 0.75 K/mm3 (0.9-3.2); Mean Corpuscular HGB Conc 33.3 g/dl (32-36); Mean Corpuscular Hemoglobin 32.6 pg (26-34); Mean Corpuscular Volume 98.1 fl (80-100); Mean Platelet Volume 9.7 fl (7.4-10.4); Monocytes Absolute Auto 1.4 K/mm3 (0.1-0.6); Monocytes Percent Auto 13.1 % (2.6-8.5); Neutrophils Absolute Auto 8.3 K/mm3 (1.3-6.7); Neutrophils Percent Auto 77.5 % (45.5-73.1); Platelet Count Result 334 k/mm3 (150-375); Red Blood Count 4.17 M/mm3 (4.6-6.20); White Blood Count 10.7 K/mm3 (4.5-10.0)
[2021-03-29 06:15] LABS: Alanine Aminotransferase 41 U/L (4-50); Albumin Level 4.2 g/dL (3.5-5.1); Alkaline Phosphatase 70 U/L (38-126); Anion Gap 8 mmol/L (8-16); Aspartate Amino Transferase 24 U/L (17-59); Bilirubin,Total 0.4 mg/dL (0.2-1.3); Blood Urea Nitrogen 15 mg/dL (9-20); Calcium 10.9 mg/dL (8.4-10.2); Carbon Dioxide 26 mmol/L (22-30); Chloride 97 mmol/L (98-107); Estimated CRCL calculation 69 ml/min; Estimated Glomerular Filt Rate > 60; Glucose 235 mg/dL (65-110); Potassium 4.3 mmol/L (3.4-5.0); Sodium 131 mmol/L (137-145)
[2021-03-29] MEDS: ALBUTEROL SULFATE NEB 2.5 MG/0.5 ML INH 5 MG INHALATION (06:22)
[2021-03-29] MEDS: IPRATROPIUM BR 0.02% INH SOLN 0.5 MG/2.5 ML VIAL INHALATION (06:22)
--- NOTE | 2021-03-29 06:24 | ED.GENADULT ---
HPI - General Adult General Chief complaint: Shortness of Breath/Dyspnea <Ranjeet Carrillo MD - Last Filed: 03/29/21 06:27> Stated complaint: SOB SINCE TUESDAY, NV SINCE AUGUST <Ranjeet Carrillo MD - Last Filed: 03/29/21 06:27> Time Seen by Provider: 03/29/21 06:07 <Ranjeet Carrillo MD - Last Filed: 03/29/21 06:27> History of Present Illness HPI narrative: Patient 65-year-old gentleman who presents to emergency department chief complaint of shortness of breath. Patient reports that he been having shortness of breath since about Tuesday patient states also he has been having nausea and has been having discomfort in his abdomen for some time. Patient states that about a year and a half ago he had procedure for pancreatic cancer not undergoing any chemotherapy reports he has had a significant weight loss of surgery reports that he supposed to follow-up with oncology in the near future. The patient states alert he has been having a little bit of a cough denies fever. <Ranjeet Carrillo MD - Last Filed: 03/29/21 06:27> Related Data Home medications: Home Medications Medication Instructions Recorded Confirmed [id number] See Rx Instructions PO .COMPLEX 07/11/20 12/08/20 36,000-114,000-180,000 unit capsule,delay rel <Ranjeet Carrillo MD - Last Filed: 03/29/21 06:27> Allergies/adverse reactions: Allergies Allergy/AdvReac Type Severity Reaction Status Date / Time ciprofloxacin [From Cipro] Allergy Mild Rash Verified 03/29/21 05:51 Sulfa (Sulfonamide Allergy Mild rash Verified 03/29/21 05:51 Antibiotics) codeine AdvReac Mild nausea Verified 03/29/21 05:51 <Ranjeet Carrillo MD - Last Filed: 03/29/21 06:27> Review of Systems Review of Systems: A 10 system review of systems was completed on the patient and is negative except for what is stated in the HPI. Nursing and ancillary documentation was reviewed. <Ranjeet Carrillo MD - Last Filed: 03/29/21 06:27> [facility] Past Medical History Medical History: Medical History Anxiety Bipolar disorder, unspecified BMI 21.0-21.9, adult BMI 22.0-22.9, adult Bowel habit changes Colonoscopy planned Cystic mass of pancreas Essential hypertension Mixed hyperlipidemia Pancreatic cancer Prostatitis Weight loss <Ranjeet Carrillo MD - Last Filed: 03/29/21 06:27> Surgical History Surgical History: Surgical History History of endoscopy History of pancreatectomy History of splenectomy S/P CABG (coronary artery bypass graft) <Ranjeet Carrillo MD - Last Filed: 03/29/21 06:27> Family History Family History: Family History Father Hypertension Cerebrovascular accident Family history of coronary artery disease Family history of cardiovascular disease CHF (congestive heart failure) Mother Family history of diabetes mellitus in first degree relative CHF (congestive heart failure) Sibling Diabetes mellitus Renal failure Other Family history of malignant neoplasm <Ranjeet Carrillo MD - Last Filed: 03/29/21 06:27> Social History Social History: Social History Smoking packs per day: 1 Smoking cigarettes per day: 20.0 Years smoked: 50 Smoking pack-years: 50.00 Smoking status: Current every day smoker (not considering quitting) Tobacco type: cigarettes Second hand tobacco smoke exposure: Yes Alcohol intake: never Substance use: never Substance use type: does not use 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
[2021-03-29] MEDS: ONDANSETRON INJ 4 MG/2 ML VIAL IV PUSH (06:48)
[2021-03-29] MEDS: MORPHINE SULFATE (*CRX) 4 MG/ML INJ IV PUSH (06:48)
[2021-03-29 07:25] LABS: INR 1.1; Prothrombin Time 14.1 Seconds (11.1-14.7)
[2021-03-29 07:26] LABS: Partial Thromboplastin Time 28.9 SECONDS (22.3-36.8)
[2021-03-29 07:36] LABS: Lactic Acid Reflex 1.1 mmol/L (0.7-2.1); Magnesium 1.7 mg/dL (1.6-2.3)
[2021-03-29 07:42] LABS: SARS-CoV-2 RNA PCR Positive
[2021-03-29 07:47] LABS: NT Pro B Type Natriuretic Pept 392 pg/mL (5-100); Troponin I < 0.012 ng/mL (0.000-0.034)
--- NOTE | 2021-03-29 08:12 | PC.NURSE ---
patient observed sleeping without signs of distress.
--- NOTE | 2021-03-29 09:06 | PM.IMHP ---
H&P: HPI History of Present Illness Date/Time: 03/29/21 09:06 CC: Shortness of breath dyspnea. History of present illness: This is a 65-year-old gentleman with a past medical history including but not limited to pancreatic cancer, severely impaired associated with a BMI of 19 presented emergency department with complaints of shortness of breath, weakness frequent falls. On admission the patient is tachypneic but does not appear to be in respiratory distress he is too weak to able to be able to care for self. Bedbugs noted during the encounter. coordinator of health services are contacted to file a vulnerable adult report. On initial presentation, the patient is stable and afebrile with the following vital signs: A temperature of 36.5? C, pulse rate 85, respiratory rate 27, blood pressure 167/96, pulse oximetry 99% on room air. Her rapid COVID antigen was positive. Basic labs were drawn. He CBC revealed a WBC of 10.7, hemoglobin 13.6, hematocrit 98.1, and platelet count of 3 3 4. His chemistry shows a sodium of 131, potassium 4.3, chloride 97, bicarb 26, BUN 15, creatinine 0.8 and a blood glucose of 235. His EKG shows sinus rhythm, possible left atrial enlargement, left ventricular hypertrophy and ST-T changes, borderline ST T wave abnormality inferior and high lateral leads. His chest CTA chest PE abdomen shows no acute cardiopulmonary disease. No evidence for pulmonary embolus. Mild emphysema. Mild thickening of the stomach, nonspecific, although a gastritis is not excluded. Patient was appropriately started on albuterol and ipratropium nebulization. Tylenol and morphine were ordered for pain. Patient experience nausea and vomiting since Tuesday. He was medicated with Zofran. Hospital medicine service was consulted for evaluation and management. Patient will be admitted for at least 2 midnights as an inpatient for management COVID 19 pneumonia. Chief Complaint: Weakness, nausea and vomiting, shortness of breath. Review of Systems Review of Systems: All systems reviewed & are unremarkable except as noted in HPI and below PMFSH Past Medical History Medical History Anxiety Bipolar disorder, unspecified BMI 21.0-21.9, adult BMI 22.0-22.9, adult Bowel habit changes Colonoscopy planned Cystic mass of pancreas Essential hypertension Mixed hyperlipidemia Pancreatic cancer Prostatitis Weight loss Surgical History Surgical History History of endoscopy History of pancreatectomy History of splenectomy S/P CABG (coronary artery bypass graft) Family History Family History Father Hypertension Cerebrovascular accident Family history of coronary artery disease Family history of cardiovascular disease CHF (congestive heart failure) Mother Family history of diabetes mellitus in first degree relative CHF (congestive heart failure) Sibling Diabetes mellitus Renal failure Other Family history of malignant neoplasm Social History Social History Smoking packs per day: 1 Smoking cigarettes per day: 20.0 Years smoked: 51 Smoking pack-years: 51.00 Smoking status: Current every day smoker Tobacco type: cigarettes Second hand tobacco smoke exposure: Yes Alcohol intake: never Substance use: never Substance use type: does not use 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
[2021-03-29 09:43] LABS: Hemoglobin A1C 10.6 % (<5.7)
[2021-03-29 10:10] LABS: Troponin I < 0.012 ng/mL (0.000-0.034)
[2021-03-29 10:47] LABS: Glucose Point of Care 251 mg/dl (65-105)
[2021-03-29] MEDS: INSULIN ASPART (*BKC) 100 UNITS/ML SUB-Q ×3 (10:56→18:05)
[2021-03-29] MEDS: SODIUM CHLORIDE 0.9% IV 1,000 ML 125 ML IV CONT ×2 (10:59→21:05)
[2021-03-29] MEDS: REMDESIVIR 200 MG/NS 250 ML 200 MG/250 ML BAG 250 MG IVPB (10:59)
[2021-03-29] MEDS: ACETAMINOPHEN 325 MG TABLET 650 MG PO (11:07)
--- NOTE | 2021-03-29 14:09 | ADMGEN ---
This patient, Vic Oro Jr., was admitted to 3 [facility] Surg Room 303-01 at 1246 Patient/family oriented to hospital policies and general routines including ID bracelet, bed and alarms, visiting hours, pain management, procedures, bathroom and other care routines, personal items, smoking policy, room service/diet, and visiting hours. Information on how to activate the Rapid Response Team has been discussed. Patient/Family are encouraged to report perceived risks to care and to ask questions if they do not understand what they are told or what they should do.
[2021-03-29 14:11] LABS: Glucose Point of Care 235 mg/dl (65-105)
--- NOTE | 2021-03-29 15:12 | PCPTNOTE ---
attempted to see pt for PT evaluation: was in ER and moving to the floor; then ~ 1445: hospitalist was in with pt; unable to perform PT eval today;
[2021-03-29 16:13] LABS: Glucose Point of Care 210 mg/dl (65-105)
[2021-03-29] MEDS: carvediloL 6.25 MG TABLET PO (22:19)
[2021-03-29 22:34] LABS: Glucose Point of Care 302 mg/dl (65-105)
[2021-03-30] VITALS (8 sets, daily range): BP systolic 113–161; BP diastolic 83–98; PULSE 64–71; RESP 14–18; TEMP 36–37.3; O2SAT 96–99; BMI 18.3
--- NOTE | 2021-03-30 | ECHO_ITS ---
Patient Info Name: Vic Oro Age: 65 years : 1955 Gender: Male Ht: 70 in Wt: 128 lbs BSA: 1.68 m2 HR: 62 bpm BP: 124 / 82 mmHg Technical Quality: Good Exam Date: 03/30/2021 4:01 PM Exam Location: [facility] Exam Room: 303 Patient Status: Outpatient Admit Date: 03/29/2021 Staff Ordering Physician: [facility] Personnel Director: Clementina Hill RDCS Attending Provider: Rin Archuleta MD Referring Physician: Dale SCHOFIELD; Exam Type: CA echo doppler color flow Study Info Indications - fluid status sob covid Complete two-dimensional, color flow and Doppler transthoracic echocardiogram is performed. Summary 1. Complete two-dimensional, color flow and Doppler transthoracic echocardiogram is performed. 2. Left ventricular chamber dimension is normal. 3. Left ventricular systolic function is normal, estimated at 60-65%. 4. The left ventricular diastolic function is grade I diastolic dysfunction. 5. E/e' 9 is minimally elevated. 6. There is mild aortic valve sclerosis. 7. The mitral valve has mildly calcified annulus. 8. There is mild mitral valve regurgitation. 9. No pulmonary hypertension, estimated pulmonary arterial systolic pressure is 28 mmHg. 10. There is trace pulmonic regurgitation. Left Ventricle E/e' 9 is minimally elevated. Left ventricular chamber dimension is normal. Left ventricular systolic function is normal, estimated at 60-65%. The left ventricular diastolic function is grade I diastolic dysfunction. Right Ventricle Right ventricular chamber dimension is normal. Right ventricular systolic function is normal. Left Atria Left atrial chamber dimension is normal. Right Atria Right atrial chamber dimension is normal. Aortic Valve The aortic valve is trileaflet. There is mild aortic valve sclerosis. There is no aortic valve stenosis. Pulmonic Valve There is trace pulmonic regurgitation. Mitral Valve The mitral valve has mildly calcified annulus. There is no mitral valve stenosis. There is mild mitral valve regurgitation. Tricuspid Valve There is no tricuspid valve regurgitation. No pulmonary hypertension, estimated pulmonary arterial systolic pressure is 28 mmHg. Pericardium/Pleural There is no pericardial effusion. Inferior Vena Cava Normal inferior vena cava with >50% collapse upon inspiration consistent with normal right atrial pressure, 5 mmHg. Aorta The aortic root size at the sinus of Valsalva is normal. Left Ventricular Outflow Tract Name Value Normal LVOT 2D LVOT Diameter 2.1 cm LVOT Doppler LVOT Peak Gradient 3 mmHg LVOT Mean Gradient 2 mmHg LVOT VTI 17 cm LVOT VTI/AV VTI Ratio 0.9 LVOT Stroke Volume 60 ml LVOT CO 12.8 l/min LVOT CI 7.6 l/min/m2 Pulmonic Valve Name Value Normal -----
[2021-03-30] MEDS: SODIUM CHLORIDE 0.9% IV 1,000 ML 125 ML IV CONT ×2 (05:26→12:21)
[2021-03-30 06:51] LABS: Basophils Absolute Auto 0.1 K/mm3 (0.0-0.1); Basophils Percent Auto 0.5 % (0.2-1.2); Eosinophils Percent Auto 0.1 % (0-4.4); Hematocrit 42.5 % (42.0-52.0); Hemoglobin 14.2 g/dL (14.0-18.0); Immature Granulocyte Absolute 0.03 K/mm3 (0.00-0.031); Immature Granulocyte Percent A 0.3 % (0-0.5); Lymphocytes Absolute Auto 2.73 K/mm3 (0.9-3.2); Lymphocytes Percent Auto 29.5 % (18.3-44.2); Mean Corpuscular HGB Conc 33.4 g/dl (32-36); Mean Corpuscular Hemoglobin 32.3 pg (26-34); Mean Corpuscular Volume 96.6 fl (80-100); Mean Platelet Volume 10.4 fl (7.4-10.4); Monocytes Absolute Auto 1.4 K/mm3 (0.1-0.6); Monocytes Percent Auto 15.3 % (2.6-8.5); Neutrophils Percent Auto 54.3 % (45.5-73.1); Platelet Count Result 326 k/mm3 (150-375); Red Cell Distribution Width 13.1 % (11.5-14.5); White Blood Count 9.2 K/mm3 (4.5-10.0)
[2021-03-30 07:04] LABS: Prothrombin Time 13.5 Seconds (11.1-14.7)
[2021-03-30 07:06] LABS: Alanine Aminotransferase 37 U/L (4-50); Anion Gap 10 mmol/L (8-16); Blood Urea Nitrogen 14 mg/dL (9-20); Calcium 9.7 mg/dL (8.4-10.2); Carbon Dioxide 23 mmol/L (22-30); Chloride 102 mmol/L (98-107); Estimated CRCL calculation 76 ml/min; Estimated Glomerular Filt Rate > 60; Glucose 241 mg/dL (65-110); Lactate Dehydrogenase 295 U/L (313-618); Sodium 135 mmol/L (137-145)
[2021-03-30 07:52] LABS: Iron 51 ug/dL (49-181); Percent Iron Saturation 15 % (20-50)
[2021-03-30 09:12] LABS: Glucose Point of Care 265 mg/dl (65-105)
[2021-03-30] MEDS: carvediloL 6.25 MG TABLET PO ×2 (10:14→21:25)
[2021-03-30] MEDS: INSULIN ASPART (*BKC) 100 UNITS/ML SUB-Q ×3 (10:14→16:47)
[2021-03-30 10:38] LABS: Influenza Control Positive
--- NOTE | 2021-03-30 11:15 | P.PNIM_ITS ---
Progress Note: A&P Assessment and Plan (1) Pneumonia due to COVID-19 virus: Code(s): U07.1 - COVID-19; J12.82 - Pneumonia due to coronavirus disease 2018 Status: Acute Assessment and Plan: * new onset shortness of breath since Tuesday, associated with productive with clear sputum. * started with remdesivir and dexamethasone * saturating well on room air, did not require oxygen requirement. * chest CT did not reveal any acute cardiopulmonary disease, no evidence of pulmonary embolism * Chest xray no acute cardiopulmonary disease * COVID + on 03/29/21 * SOB with activity * Cough is present, and antitussives * Needs a diuretic * Echo ordered and pending * Could be a component of fluid overload since fluids have been going * Inflammatory markers: LDH 295, Ferritin 102, check in the am (2) Pancreatic cancer: Qualifiers: Pancreatic malignancy location: tail of pancreas Qualified Code(s): C25.2 - Malignant neoplasm of tail of pancreas Code(s): C25.9 - Malignant neoplasm of pancreas, unspecified Status: Acute Assessment and Plan: * Status post pancreatic resection biopsy are with persistent postoperative nausea and vomiting. * Antiemetic as needed p.r.n. for vomiting * Operation performed by Dr. Reyna (3) Diabetes type 2, controlled: Qualifiers: Diabetes mellitus complication status: with hyperglycemia Diabetes mellitus watermelon inspector insulin use: with jail use Qualified Code(s): E11.65 - Type 2 diabetes mellitus with hyperglycemia; Z79.4 - exterminator (current) use of insulin Code(s): E11.9 - Type 2 diabetes mellitus without complications Status: Acute Assessment and Plan: * Monitor daily blood glucose and serial Accu-Chek. * insulin sliding scale coverage * Hold orals at this time * Continue home latus * Trend glucose * Adjust therapy as indicated (4) Essential hypertension: Code(s): I10 - Essential (primary) hypertension Status: Acute Assessment and Plan: * Current BP is 124/87 * Restart home blood pressure medication coreg 6.25mg pO Q12hr, imdur 30mg PO Q24hr, * Trend blood pressure * Adjust therapy as indicated (5) Bipolar disorder, unspecified: Qualifiers: Active/Remission status: in remission of unspecified degree Qualified Code(s): F31.70 - Bipolar disorder, currently in remission, most recent episode unspecified Code(s): F31.9 - Bipolar disorder, unspecified Status: Acute Assessment and Plan: * Currently patient denies suicidal ideation * Very emotional at this time * Restarted lithium * [place] in the am (6) Anxiety: Code(s): F41.9 - Anxiety disorder, unspecified Status: Acute Assessment and Plan: * Add Xanax * Continue home sertraline 50mg PO daily (7) Depression: Code(s): F32.9 - Major depressive disorder, single episode, unspecified Status: Acute Assessment and Plan: * Continue sertraline 50mg PO daily (8) Mixed hyperlipidemia: Code(s): E78.2 - Mixed hyperlipidemia Status: Acute Assessment and Plan: * Lipid panel in the am * Consider starting medications (9) S/P CABG (coronary artery bypass graft): Code(s): Z95.1 - Presence of aortocoronary bypass graft Status: Acute Assessment and Plan: * Resume cardioprotective medication * Proba
--- NOTE | 2021-03-30 11:15 | PM.IMPN ---
Progress Note: A&P Assessment and Plan (1) Pneumonia due to COVID-19 virus: Code(s): U07.1 - COVID-19; J12.82 - Pneumonia due to coronavirus disease 2019 Status: Acute Assessment and Plan: new onset shortness of breath since Tuesday, associated with productive with clear sputum. started with remdesivir and dexamethasone saturating well on room air, did not require oxygen requirement. chest CT did not reveal any acute cardiopulmonary disease, no evidence of pulmonary embolism Chest xray no acute cardiopulmonary disease COVID + on 03/29/21 SOB with activity Cough is present, and antitussives Needs a diuretic Echo ordered and pending Could be a component of fluid overload since fluids have been going Inflammatory markers: LDH 295, Ferritin 102, check in the am (2) Pancreatic cancer: Qualifiers: Pancreatic malignancy location: tail of pancreas Qualified Code(s): C25.2 - Malignant neoplasm of tail of pancreas Code(s): C25.9 - Malignant neoplasm of pancreas, unspecified Status: Acute Assessment and Plan: Status post pancreatic resection biopsy are with persistent postoperative nausea and vomiting. Antiemetic as needed p.r.n. for vomiting Operation performed by Dr. 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 insulin sliding scale coverage Hold orals at this time Continue home latus Trend glucose Adjust therapy as indicated (4) Essential hypertension: Code(s): I10 - Essential (primary) hypertension Status: Acute Assessment and Plan: Current BP is 124/87 Restart home blood pressure medication coreg 6.25mg pO Q12hr, imdur 30mg PO Q24hr, Trend blood pressure Adjust therapy as indicated (5) Bipolar disorder, unspecified: Qualifiers: Active/Remission status: in remission of unspecified degree Qualified Code(s): F31.70 - Bipolar disorder, currently in remission, most recent episode unspecified Code(s): F31.9 - Bipolar disorder, unspecified Status: Acute Assessment and Plan: Currently patient denies suicidal ideation Very emotional at this time Restarted lithium [place] in the am (6) Anxiety: Code(s): F41.9 - Anxiety disorder, unspecified Status: Acute Assessment and Plan: Add Xanax Continue home sertraline 50mg PO daily (7) Depression: Code(s): F32.9 - Major depressive disorder, single episode, unspecified Status: Acute Assessment and Plan: Continue sertraline 50mg PO daily (8) Mixed hyperlipidemia: Code(s): E78.2 - Mixed hyperlipidemia Status: Acute Assessment and Plan: Lipid panel in the am Consider starting medications (9) S/P CABG (coronary artery bypass graft): Code(s): Z95.1 - Presence of aortocoronary bypass graft Status: Acute Assessment and Plan: Resume cardioprotective medication Probably need to add aspirin Probably will need to add a statin will wait for lipid panel (10) Forgetfulness: Code(s): R68.89 - Other general symptoms and signs Status: Acute Assessment and Plan: Sent dementia workup. May be related to depression. (11) Vomiting: Code(s): R11.10 - Vomiting, unspecified Status: Acute Assessment and Plan: Antiemetic medication p.r.n. as above (12) Failure to thrive: Status: Acute Assessment and Plan: Chronic weight
[2021-03-30 11:50] LABS: Glucose Point of Care 294 mg/dl (65-105)
[2021-03-30] MEDS: REMDESIVIR 100 MG/NS 250 ML 100 MG/250 ML BAG 250 MG IVPB (14:27)
[2021-03-30 15:09] LABS: Lithium 0.5 mmol/L (0.6-1.2)
[2021-03-30] MEDS: LITHIUM CARBONATE 300 MG CAPSULE 600 MG PO (16:47)
[2021-03-30 17:04] LABS: Glucose Point of Care 309 mg/dl (65-105)
[2021-03-30 20:47] LABS: Glucose Point of Care 381 mg/dl (65-105)
[2021-03-30] MEDS: INSULIN ASPART (*BKC) 100 UNITS/ML 8 UNITS SUB-Q (21:25)
[2021-03-30] MEDS: INSULIN GLARGINE (*BKC) 100 UNITS/ML 12 UNITS SUB-Q (21:27)
[2021-03-31] VITALS (11 sets, daily range): BP systolic 100–151; BP diastolic 43–108; PULSE 63–83; RESP 14–18; TEMP 36.5–37.1; O2SAT 98–99
[2021-03-31 06:45] LABS: Basophils Percent Auto 0.4 % (0.2-1.2); Eosinophils Percent Auto 0.2 % (0-4.4); Hematocrit 40.8 % (42.0-52.0); Hemoglobin 13.7 g/dL (14.0-18.0); Immature Granulocyte Absolute 0.03 K/mm3 (0.00-0.031); Immature Granulocyte Percent A 0.3 % (0-0.5); Lymphocytes Absolute Auto 4.03 K/mm3 (0.9-3.2); Lymphocytes Percent Auto 42.8 % (18.3-44.2); Mean Corpuscular HGB Conc 33.6 g/dl (32-36); Mean Corpuscular Hemoglobin 32.5 pg (26-34); Mean Corpuscular Volume 96.7 fl (80-100); Mean Platelet Volume 10.8 fl (7.4-10.4); Monocytes Percent Auto 10.1 % (2.6-8.5); Neutrophils Absolute Auto 4.3 K/mm3 (1.3-6.7); Neutrophils Percent Auto 46.2 % (45.5-73.1); Platelet Count Result 333 k/mm3 (150-375); Red Blood Count 4.22 M/mm3 (4.6-6.20); Red Cell Distribution Width 13.1 % (11.5-14.5); White Blood Count 9.4 K/mm3 (4.5-10.0)
[2021-03-31 06:53] LABS: Alanine Aminotransferase 68 U/L (4-50); Albumin Level 3.7 g/dL (3.5-5.1); Alkaline Phosphatase 67 U/L (38-126); Anion Gap 7 mmol/L (8-16); Aspartate Amino Transferase 49 U/L (17-59); Bilirubin,Total 0.2 mg/dL (0.2-1.3); Blood Urea Nitrogen 17 mg/dL (9-20); CRP < 0.5 mg/dL (<1.0); Calcium 9.9 mg/dL (8.4-10.2); Carbon Dioxide 29 mmol/L (22-30); Chloride 100 mmol/L (98-107); Estimated CRCL calculation 67 ml/min; Estimated Glomerular Filt Rate > 60; Glucose 163 mg/dL (65-110); Lactate Dehydrogenase 297 U/L (313-618); Magnesium 1.7 mg/dL (1.6-2.3); Potassium 3.7 mmol/L (3.4-5.0); Sodium 136 mmol/L (137-145)
[2021-03-31 06:56] LABS: INR 1.1; Prothrombin Time 13.8 Seconds (11.1-14.7)
[2021-03-31 07:07] LABS: NT Pro B Type Natriuretic Pept 253 pg/mL (5-100)
--- NOTE | 2021-03-31 07:28 | PM.IMPN ---
Progress Note: A&P Assessment and Plan (1) Pneumonia due to COVID-19 virus: Code(s): U07.1 - COVID-19; J12.82 - Pneumonia due to coronavirus disease 2019 Status: Acute Assessment and Plan: new onset shortness of breath since Tuesday, associated with productive with clear sputum. started with remdesivir and dexamethasone saturating well on room air, did not require oxygen requirement. chest CT did not reveal any acute cardiopulmonary disease, no evidence of pulmonary embolism Chest xray no acute cardiopulmonary disease COVID + on 03/29/21 SOB with activity Cough is present, and antitussives Needs a diuretic Echo ordered and pending Could be a component of fluid overload since fluids have been going Inflammatory markers: LDH 297, Ferritin 100, CRP >0.5. (2) Pancreatic cancer: Qualifiers: Pancreatic malignancy location: tail of pancreas Qualified Code(s): C25.2 - Malignant neoplasm of tail of pancreas Code(s): C25.9 - Malignant neoplasm of pancreas, unspecified Status: Acute Assessment and Plan: Status post pancreatic resection biopsy are with persistent postoperative nausea and vomiting. Antiemetic as needed p.r.n. for vomiting Operation performed by Dr. Reyna (3) Diabetes type 2, controlled: Qualifiers: Diabetes mellitus detention insulin use: with detention use Diabetes mellitus complication status: with hyperglycemia Qualified Code(s): E11.65 - Type 2 diabetes mellitus with hyperglycemia; Z79.4 - halfway (current) use of insulin Code(s): E11.9 - Type 2 diabetes mellitus without complications Status: Acute Assessment and Plan: Monitor daily blood glucose and serial Accu-Chek. insulin sliding scale coverage Hold orals at this time Continue home latus Trend glucose Adjust therapy as indicated (4) Essential hypertension: Code(s): I10 - Essential (primary) hypertension Status: Acute Assessment and Plan: Current BP is 124/87 Restart home blood pressure medication coreg 6.25mg pO Q12hr, imdur 30mg PO Q24hr, Trend blood pressure Adjust therapy as indicated (5) Bipolar disorder, unspecified: Qualifiers: Active/Remission status: in remission of unspecified degree Qualified Code(s): F31.70 - Bipolar disorder, currently in remission, most recent episode unspecified Code(s): F31.9 - Bipolar disorder, unspecified Status: Acute Assessment and Plan: Currently patient denies suicidal ideation Very emotional at this time Restarted lithium [place] in the am (6) Anxiety: Code(s): F41.9 - Anxiety disorder, unspecified Status: Acute Assessment and Plan: Add Xanax Continue home sertraline 50mg PO daily (7) Depression: Code(s): F32.9 - Major depressive disorder, single episode, unspecified Status: Acute Assessment and Plan: Continue sertraline 50mg PO daily (8) Mixed hyperlipidemia: Code(s): E78.2 - Mixed hyperlipidemia Status: Acute Assessment and Plan: Lipid panel in the am Consider starting medications (9) S/P CABG (coronary artery bypass graft): Code(s): Z95.1 - Presence of aortocoronary bypass graft Status: Acute Assessment and Plan: Resume cardioprotective medication Probably need to add aspirin Probably will need to add a statin will wait for lipid panel (10) Forgetfulness: Code(s): R68.89 - Other general symptoms and signs Status: Acute Assessment and Plan: Sent dementia workup. May be related to depression. (11) Vomiting: Code(s): R11.10 - Vomiting, unspecified Status: Acute Assessment and Plan: Antiemetic medication p.r.n. as above (12) Failure to thrive: Status: Acute Assessment and Plan: Chronic weight loss,
--- NOTE | 2021-03-31 07:28 | P.PNIM_ITS ---
Progress Note: A&P Assessment and Plan (1) Pneumonia due to COVID-19 virus: Code(s): U07.1 - COVID-19; J12.82 - Pneumonia due to coronavirus disease 2018 Status: Acute Assessment and Plan: * new onset shortness of breath since Tuesday, associated with productive with clear sputum. * started with remdesivir and dexamethasone * saturating well on room air, did not require oxygen requirement. * chest CT did not reveal any acute cardiopulmonary disease, no evidence of pulmonary embolism * Chest xray no acute cardiopulmonary disease * COVID + on 03/29/21 * SOB with activity * Cough is present, and antitussives * Needs a diuretic * Echo ordered and pending * Could be a component of fluid overload since fluids have been going * Inflammatory markers: LDH 297, Ferritin 100, CRP >0.5. (2) Pancreatic cancer: Qualifiers: Pancreatic malignancy location: tail of pancreas Qualified Code(s): C25.2 - Malignant neoplasm of tail of pancreas Code(s): C25.9 - Malignant neoplasm of pancreas, unspecified Status: Acute Assessment and Plan: * Status post pancreatic resection biopsy are with persistent postoperative nausea and vomiting. * Antiemetic as needed p.r.n. for vomiting * Operation performed by Dr. Reyna (3) Diabetes type 2, controlled: Qualifiers: Diabetes mellitus longterm insulin use: with longterm use Diabetes mellitus complication status: with hyperglycemia Qualified Code(s): E11.65 - Type 2 diabetes mellitus with hyperglycemia; Z79.4 - servicing manager (current) use of insulin Code(s): E11.9 - Type 2 diabetes mellitus without complications Status: Acute Assessment and Plan: * Monitor daily blood glucose and serial Accu-Chek. * insulin sliding scale coverage * Hold orals at this time * Continue home latus * Trend glucose * Adjust therapy as indicated (4) Essential hypertension: Code(s): I10 - Essential (primary) hypertension Status: Acute Assessment and Plan: * Current BP is 124/87 * Restart home blood pressure medication coreg 6.25mg pO Q12hr, imdur 30mg PO Q24hr, * Trend blood pressure * Adjust therapy as indicated (5) Bipolar disorder, unspecified: Qualifiers: Active/Remission status: in remission of unspecified degree Qualified Code(s): F31.70 - Bipolar disorder, currently in remission, most recent episode unspecified Code(s): F31.9 - Bipolar disorder, unspecified Status: Acute Assessment and Plan: * Currently patient denies suicidal ideation * Very emotional at this time * Restarted lithium * [place] in the am (6) Anxiety: Code(s): F41.9 - Anxiety disorder, unspecified Status: Acute Assessment and Plan: * Add Xanax * Continue home sertraline 50mg PO daily (7) Depression: Code(s): F32.9 - Major depressive disorder, single episode, unspecified Status: Acute Assessment and Plan: * Continue sertraline 50mg PO daily (8) Mixed hyperlipidemia: Code(s): E78.2 - Mixed hyperlipidemia Status: Acute Assessment and Plan: * Lipid panel in the am * Consider starting medications (9) S/P CABG (coronary artery bypass graft): Code(s): Z95.1 - Presence of aortocoronary bypass graft Status: Acute Assessment and Plan: * Resume cardioprotective medication * Probably ne
[2021-03-31 07:46] LABS: Glucose Point of Care 166 mg/dl (65-105)
[2021-03-31] MEDS: LITHIUM CARBONATE 300 MG CAPSULE 600 MG PO ×2 (08:31→17:00)
[2021-03-31] MEDS: ASPIRIN 81 MG ENTERIC TABLET PO (08:32)
[2021-03-31] MEDS: ENALAPRIL MALEATE 5 MG TABLET PO (08:32)
[2021-03-31] MEDS: ISOSORBIDE MONONITRATE 30 MG TAB.ER.24H PO (08:32)
[2021-03-31] MEDS: SERTRALINE HCL 50 MG TABLET PO (08:32)
[2021-03-31] MEDS: carvediloL 6.25 MG TABLET PO ×3 (08:32→21:09)
[2021-03-31] MEDS: ENOXAPARIN 40 MG/0.4 ML SYRINGE SUB-Q (08:33)
[2021-03-31 08:36] LABS: Platelet Estimate Adequate (Adequate)
[2021-03-31 08:37] LABS: Acanthocytes 1+ (NORMAL); Ovalocytes 1+ (NORMAL)
[2021-03-31] MEDS: REMDESIVIR 100 MG/NS 250 ML 100 MG/250 ML BAG 250 MG IVPB (10:49)
[2021-03-31 11:30] LABS: Glucose Point of Care 471 mg/dl (65-105)
[2021-03-31] MEDS: INSULIN ASPART (*BKC) 100 UNITS/ML 10 UNITS SUB-Q (12:07)
[2021-03-31] MEDS: FUROSEMIDE INJ 40 MG/4 ML VIAL 20 MG IV PUSH (13:30)
[2021-03-31 13:41] LABS: Cholesterol 110 mg/dL (0-200); HDL Direct 39 mg/dL; Triglycerides 62 mg/dL (<150)
[2021-03-31 13:51] LABS: LDL Cholesterol Direct 52 mg/dL
[2021-03-31 14:09] LABS: Glucose Point of Care 431 mg/dl (65-105)
[2021-03-31] MEDS: TAMSULOSIN HCL 0.4 MG CAPSULE PO (14:51)
[2021-03-31] MEDS: INSULIN ASPART (*BKC) 100 UNITS/ML SUB-Q ×2 (14:51→17:02)
[2021-03-31] MEDS: INSULIN ASPART (*BKC) 100 UNITS/ML 15 UNITS SUB-Q (14:51)
[2021-03-31 16:31] LABS: Glucose Point of Care 318 mg/dl (65-105)
[2021-03-31] MEDS: INSULIN ASPART (*BKC) 100 UNITS/ML 6 UNITS SUB-Q (21:10)
[2021-03-31] MEDS: INSULIN GLARGINE (*BKC) 100 UNITS/ML 12 UNITS SUB-Q (21:11)
[2021-03-31 21:20] LABS: Glucose Point of Care 324 mg/dl (65-105)
[2021-04-01] VITALS: BP 127/87; PULSE 65; RESP 16; TEMP 36.4; O2SAT 100
[2021-04-01 04:00] VITALS: BP 132/79; PULSE 63; RESP 16; TEMP 36.3; O2SAT 99
[2021-04-01 07:39] LABS: Hematocrit 40.5 % (42.0-52.0); Hemoglobin 13.8 g/dL (14.0-18.0); Mean Corpuscular HGB Conc 34.1 g/dl (32-36); Mean Corpuscular Hemoglobin 32.1 pg (26-34); Mean Corpuscular Volume 94.2 fl (80-100); Mean Platelet Volume 10.7 fl (7.4-10.4); Platelet Count Result 365 k/mm3 (150-375); White Blood Count 10.3 K/mm3 (4.5-10.0)
[2021-04-01 08:00] VITALS: BP 151/93; PULSE 63; RESP 14; TEMP 36.4; O2SAT 99
[2021-04-01 08:02] LABS: Anion Gap 9 mmol/L (8-16); Blood Urea Nitrogen 21 mg/dL (9-20); Calcium 9.8 mg/dL (8.4-10.2); Carbon Dioxide 27 mmol/L (22-30); Chloride 98 mmol/L (98-107); Estimated CRCL calculation 67 ml/min; Estimated Glomerular Filt Rate > 60; Glucose 174 mg/dL (65-110); Potassium 3.5 mmol/L (3.4-5.0); Sodium 134 mmol/L (137-145)
[2021-04-01 08:06] LABS: INR 1.1; Prothrombin Time 14.1 Seconds (11.1-14.7)
[2021-04-01 08:20] LABS: Burr Cells 1+ (NORMAL); Eosinophils Percent Manual 1 % (0-4); Lymphocytes Absolute Manual 5.56 K/mm3 (1.1-4.5); Monocytes Absolute Manual 0.82 K/mm3 (0.1-0.90); Monocytes Percent Manual 8 % (3-9); Neutrophils Percent Manual 37 % (46-73); Platelet Estimate Adequate (Adequate); Total Cells Counted 100
[2021-04-01] MEDS: TAMSULOSIN HCL 0.4 MG CAPSULE PO (08:37)
[2021-04-01] MEDS: ASPIRIN 81 MG ENTERIC TABLET PO (08:37)
[2021-04-01] MEDS: ENALAPRIL MALEATE 5 MG TABLET PO (08:37)
[2021-04-01] MEDS: SERTRALINE HCL 50 MG TABLET PO (08:37)
[2021-04-01] MEDS: LITHIUM CARBONATE 300 MG CAPSULE 600 MG PO ×2 (08:37→16:56)
[2021-04-01] MEDS: ISOSORBIDE MONONITRATE 30 MG TAB.ER.24H PO (08:38)
[2021-04-01] MEDS: ENOXAPARIN 40 MG/0.4 ML SYRINGE SUB-Q (08:38)
[2021-04-01 08:42] LABS: Alanine Aminotransferase 403 U/L (4-50)
[2021-04-01 08:56] LABS: Glucose Point of Care 182 mg/dl (65-105)
--- NOTE | 2021-04-01 09:30 | P.DS_ITS ---
DS: Admitting Diagnosis Discharge Date 03/31/21929 Admitting Diagnosis COVID 19 PNA DS: Discharge Diagnosis Discharge Diagnosis (1) Pneumonia due to COVID-19 virus: Code(s): U07.1 - COVID-19; J12.82 - Pneumonia due to coronavirus disease 2018 Status: Acute Assessment and Plan: * new onset shortness of breath since Tuesday, associated with productive with clear sputum. * started with remdesivir and dexamethasone * saturating well on room air, did not require oxygen requirement. * chest CT did not reveal any acute cardiopulmonary disease, no evidence of pulmonary embolism * Chest xray no acute cardiopulmonary disease * COVID + on 03/29/21 * SOB with activity * Cough is present, and antitussives * Needs a diuretic * Echo ordered and pending * Could be a component of fluid overload since fluids have been going * Inflammatory markers: LDH 295, Ferritin 102, check in the am (2) Pancreatic cancer: Qualifiers: Pancreatic malignancy location: tail of pancreas Qualified Code(s): C25.2 - Malignant neoplasm of tail of pancreas Code(s): C25.9 - Malignant neoplasm of pancreas, unspecified Status: Acute Assessment and Plan: * Status post pancreatic resection biopsy are with persistent postoperative nausea and vomiting. * Antiemetic as needed p.r.n. for vomiting * Operation performed by Dr. Reyna (3) Diabetes type 2, controlled: Qualifiers: Diabetes mellitus complication status: with hyperglycemia Diabetes mellitus long-term insulin use: with long-term use Qualified Code(s): E11.65 - Type 2 diabetes mellitus with hyperglycemia; Z79.4 - FDC (current) use of insulin Code(s): E11.9 - Type 2 diabetes mellitus without complications Status: Acute Assessment and Plan: * Monitor daily blood glucose and serial Accu-Chek. * insulin sliding scale coverage * Hold orals at this time * Continue home latus * Trend glucose * Adjust therapy as indicated (4) Essential hypertension: Code(s): I10 - Essential (primary) hypertension Status: Acute Assessment and Plan: * Current BP is 124/87 * Restart home blood pressure medication coreg 6.25mg pO Q12hr, imdur 30mg PO Q24hr, * Trend blood pressure * Adjust therapy as indicated (5) Bipolar disorder, unspecified: Qualifiers: Active/Remission status: in remission of unspecified degree Qualified Code(s): F31.70 - Bipolar disorder, currently in remission, most recent episode unspecified Code(s): F31.9 - Bipolar disorder, unspecified Status: Acute Assessment and Plan: * Currently patient denies suicidal ideation * Very emotional at this time * Restarted lithium * [place] in the am (6) Anxiety: Code(s): F41.9 - Anxiety disorder, unspecified Status: Acute Assessment and Plan: * Add Xanax * Continue home sertraline 50mg PO daily (7) Depression: Code(s): F32.9 - Major depressive disorder, single episode, unspecified Status: Acute Assessment and Plan: * Continue sertraline 50mg PO daily (8) Mixed hyperlipidemia: Code(s): E78.2 - Mixed hyperlipidemia Status: Acute Assessment and Plan: * Lipid panel in the am * Consider starting medications (9) S/P CABG (coronary artery bypass graft): Code(s): Z95.1 - Presence of aortocoronar
--- NOTE | 2021-04-01 09:30 | PM.DS ---
DS: Admitting Diagnosis Discharge Date 03/31/21929 Admitting Diagnosis COVID 19 PNA DS: Discharge Diagnosis Discharge Diagnosis (1) Pneumonia due to COVID-19 virus: Code(s): U07.1 - COVID-19; J12.82 - Pneumonia due to coronavirus disease 2018 Status: Acute Assessment and Plan: new onset shortness of breath since Tuesday, associated with productive with clear sputum. started with remdesivir and dexamethasone saturating well on room air, did not require oxygen requirement. chest CT did not reveal any acute cardiopulmonary disease, no evidence of pulmonary embolism Chest xray no acute cardiopulmonary disease COVID + on 03/29/21 SOB with activity Cough is present, and antitussives Needs a diuretic Echo ordered and pending Could be a component of fluid overload since fluids have been going Inflammatory markers: LDH 295, Ferritin 102, check in the am (2) Pancreatic cancer: Qualifiers: Pancreatic malignancy location: tail of pancreas Qualified Code(s): C25.2 - Malignant neoplasm of tail of pancreas Code(s): C25.9 - Malignant neoplasm of pancreas, unspecified Status: Acute Assessment and Plan: Status post pancreatic resection biopsy are with persistent postoperative nausea and vomiting. Antiemetic as needed p.r.n. for vomiting Operation performed by Dr. Reyna (3) Diabetes type 2, controlled: Qualifiers: Diabetes mellitus complication status: with hyperglycemia Diabetes mellitus security incident handler insulin use: with security incident handler use Qualified Code(s): E11.65 - Type 2 diabetes mellitus with hyperglycemia; Z79.4 - dental nurse (current) use of insulin Code(s): E11.9 - Type 2 diabetes mellitus without complications Status: Acute Assessment and Plan: Monitor daily blood glucose and serial Accu-Chek. insulin sliding scale coverage Hold orals at this time Continue home latus Trend glucose Adjust therapy as indicated (4) Essential hypertension: Code(s): I10 - Essential (primary) hypertension Status: Acute Assessment and Plan: Current BP is 124/87 Restart home blood pressure medication coreg 6.25mg pO Q12hr, imdur 30mg PO Q24hr, Trend blood pressure Adjust therapy as indicated (5) Bipolar disorder, unspecified: Qualifiers: Active/Remission status: in remission of unspecified degree Qualified Code(s): F31.70 - Bipolar disorder, currently in remission, most recent episode unspecified Code(s): F31.9 - Bipolar disorder, unspecified Status: Acute Assessment and Plan: Currently patient denies suicidal ideation Very emotional at this time Restarted lithium [place] in the am (6) Anxiety: Code(s): F41.9 - Anxiety disorder, unspecified Status: Acute Assessment and Plan: Add Xanax Continue home sertraline 50mg PO daily (7) Depression: Code(s): F32.9 - Major depressive disorder, single episode, unspecified Status: Acute Assessment and Plan: Continue sertraline 50mg PO daily (8) Mixed hyperlipidemia: Code(s): E78.2 - Mixed hyperlipidemia Status: Acute Assessment and Plan: Lipid panel in the am Consider starting medications (9) S/P CABG (coronary artery bypass graft): Code(s): Z95.1 - Presence of aortocoronary bypass graft Status: Acute Assessment and Plan: Resume cardioprotective medication Probably need to add aspirin Probably will need to add a statin will wait for lipid panel (10) Forgetfulness: Code(s): R68.89 - Other general symptoms and signs Status: Acute Assessment and Plan: Sent dementia workup. May be related to depression. (11) Vomiting: Code(s): R11.10 - Vomiting, unspecified Status: Acute Assessment and Plan: Antiemetic medication p.r.n. as above Ca
[2021-04-01] MEDS: REMDESIVIR 100 MG/NS 250 ML 100 MG/250 ML BAG 250 MG IVPB (11:22)
[2021-04-01] MEDS: metFORMIN HCL 500 MG TABLET 1000 MG PO ×2 (11:23→16:56)
[2021-04-01] MEDS: glipiZIDE XL 2.5 MG TAB.ER.24 PO (11:23)
[2021-04-01 11:42] LABS: Glucose Point of Care 489 mg/dl (65-105)
[2021-04-01 12:00] VITALS: BP 101/71; PULSE 79; RESP 16; TEMP 36.4; O2SAT 99
[2021-04-01] MEDS: INSULIN ASPART (*BKC) 100 UNITS/ML 10 UNITS SUB-Q (12:05)
[2021-04-01] MEDS: INSULIN ASPART (*BKC) 100 UNITS/ML SUB-Q ×2 (12:06→16:56)
[2021-04-01 14:14] LABS: Glucose Point of Care 343 mg/dl (65-105)
[2021-04-01] MEDS: INSULIN ASPART (*BKC) 100 UNITS/ML 22 UNITS SUB-Q (14:54)
[2021-04-01 16:00] VITALS: BP 123/75; PULSE 72; RESP 16; TEMP 36.3; O2SAT 97
[2021-04-01 16:49] LABS: Glucose Point of Care 211 mg/dl (65-105)
== END 2021-04-01 17:15 | disposition home or self-care (01) | DRG 137 ==
LOC: ANHED 09:17 → ANH3MEDSUR 03-30 11:30
PROVIDERS: Emergency Medicine; Admitting Provider Internal Medicine; Emergency Provider Emergency Medicine; PCP Family Medicine; Visit Provider Nurse Practitioner
DX: U07.1 COVID-19 (principal); J12.82 Pneumonia due to coronavirus disease 2019; C25.2 Malignant neoplasm of tail of pancreas; E11.65 Type 2 diabetes mellitus with hyperglycemia; F17.210 Nicotine dependence, cigarettes, uncomplicated; I25.10 Atherosclerotic heart disease of native coronary artery without angina pectoris; I10 Essential (primary) hypertension; F31.70 Bipolar disorder, currently in remission, most recent episode unspecified; F41.9 Anxiety disorder, unspecified; E78.2 Mixed hyperlipidemia; N41.0 Acute prostatitis; R68.89 Other general symptoms and signs; R11.10 Vomiting, unspecified; R42 Dizziness and giddiness; R62.7 Adult failure to thrive; Z28.21 Immunization not carried out because of patient refusal; Z79.4 Long term (current) use of insulin; Z79.84 Long term (current) use of oral hypoglycemic drugs; Z79.899 Other long term (current) drug therapy; Z95.1 Presence of aortocoronary bypass graft
CPT/HCPCS: 36415; 71275; 74177; 80048; 80053; 80061; 80076; 80178; 82728; 82948; 83036; 83540; 83550; 83605; 83615; 83735; 83880; 84460; 84484; 85025; 85380; 85610; 85730; 86140; 87804; 93005; 93306; 94640; 96361; 96365; 96375; 97110; 97161; 97165; 97535; 99285; A9270; C9803; J1100; J1650; J1815; J1940; J2270; J2405; J7030; Q9967; U0003; U0005

== ENCOUNTER 2021-11-11 02:23 | Observation (INO) | payer MEDICARE, MEDICAID, SELFPAY ==
[2021-11-11] VITALS (7 sets, daily range): BP systolic 151–182; BP diastolic 81–94; PULSE 60–77; RESP 16–18; TEMP 36.4–36.8; O2SAT 96–98; BMI 21.4
--- NOTE | ~2021-11-11 | XR_ITS ---
EXAMINATION: XR chest 2V DATE: 11/11/2021 03:06 INDICATION: Left chest pain. TECHNIQUE: Frontal and lateral views of the chest were obtained. COMPARISON: Chest single view 09/19/2021, chest CT 11/11/2021 FINDINGS: The chest demonstrates clear lungs without pneumonia, pleural effusion, or pneumothorax. Th e heart size is normal. Median sternotomy wires and mediastinal surgical clips are seen, likely from prior coronary artery bypass grafting. Calcified right hilar lymph nodes are consistent with old gran ulomatous disease. IMPRESSION: 1. No acute cardiopulmonary disease. Reviewed, dictated and finalized at location A.
--- NOTE | ~2021-11-11 | CT_ITS ---
EXAMINATION: CTA chest PE abdomen pel DATE: 11/11/2021 04:01 INDICATION: Chest pain. Right abdominal pain. TECHNIQUE: Computed tomography angiography (CTA) of the chest was performed with 200 mL Omnipaque-350 intravenous contrast timed to evaluate the pulmonary arteries. Coronal maximum intensity projection 3D-reconstructions were created by the technologist. Computed tomography (CT) of the abdomen and pelv is was performed with intravenous contrast. Automated exposure control and iterative reconstruction t echnique were employed. The dose-length product was 1341.38 mGy-cm. COMPARISON: CT 03/29/2021 FINDINGS: CTA chest: There is mild emphysema. The lungs demonstrate mild atelectasis. Calcified right lung nodu les and calcified right hilar lymph nodes are consistent with old granulomas disc disease. No pleural effusion. The heart size is normal. There are coronary artery calcifications. No pericardial effusio n. There are changes of coronary artery bypass grafting. There is no pulmonary embolus. There is mild thoracic spondylosis. CT abdomen and pelvis: Calcifications in the liver consistent with old granulomatous disease. There a re changes of splenectomy and distal pancreatectomy. The adrenal glands and left kidney are normal. T here is a 6 mm cyst in right kidney. There are no dilated loops of bowel. The appendix is normal. The re are no pathologically enlarged lymph nodes. There is no free intraperitoneal fluid. The bladder is distended. There is moderate lumbar spondylosis. IMPRESSION: 1. Mild emphysema. Reviewed, dictated and finalized at location A. IMPRESSION: 1. Mild emphysema.
--- NOTE | 2021-11-11 02:19 | ED.CHESTPAIN ---
HPI - Chest Pain General Chief Complaint: Chest Pain Stated Complaint: CP, RLQ ABD PAIN Source: patient Mode of arrival: EMS Limitations: no limitations History of Present Illness HPI narrative: The patient is a 66-year-old male with a history of hypertension, hyperlipidemia, chronic pancreatitis and pancreatic cancer, CABG presenting to the emergency department for evaluation of left-sided chest pain and right upper quadrant abdominal pain. Patient reports that he has had intermittent chest pain over several days. Chest pain is in the left side of his chest without radiation to the neck, jaw, shoulder, back. He reports associated right lower abdominal pain without nausea or vomiting. Patient denies fever or chills. Patient denies diarrhea or constipation. Patient states that he was sitting in his chair when he had acute onset of left-sided chest pain at rest. He denies associated diaphoresis, shortness of breath. No ripping or tearing sensation to the flank. Patient contacted EMS and patient was given oral aspirin in route. His chest pain had resolved thus they did not administer any nitroglycerin. EKG without acute ST segment changes per EMS. Related Data Allergies Allergy/AdvReac Type Severity Reaction Status Date / Time ciprofloxacin [From Cipro] Allergy Mild Rash Verified 11/11/21 02:42 Sulfa (Sulfonamide Allergy Mild rash Verified 11/11/21 02:42 Antibiotics) codeine AdvReac Mild nausea Verified 11/11/21 02:42 Review of Systems Review of Systems: CONSTITUTIONAL: Denies fever, chills, or sweats. EYES: Denies visual changes, redness, or discharge. ENT: Denies rhinorrhea, congestion, sore throat, or otalgia. CARDIOVASCULAR: Reports chest pain, currently resolved, denies palpitations or edema RESPIRATORY: Denies cough or dyspnea. GASTROINTESTINAL: Reports right-sided abdominal pain without nausea, vomiting or diarrhea GENITOURINARY: Denies dysuria or hematuria. SKIN: Denies rash or itching. MUSCULOSKELETAL: Denies back pain, joint pain, or myalgia. NEUROLOGIC: Denies headache, numbness, or weakness. [facility] Past Medical History Medical History Anxiety Bipolar disorder, unspecified BMI 21.0-21.9, adult Bowel habit changes Chronic pancreatitis Colonoscopy planned COVID Essential hypertension Mixed hyperlipidemia Pancreatic cancer Weight loss Surgical History Surgical History History of endoscopy History of pancreatectomy History of splenectomy S/P CABG (coronary artery bypass graft) Family History Family History Father Hypertension Cerebrovascular accident Family history of coronary artery disease Family history of cardiovascular disease CHF (congestive heart failure) Mother Family history of diabetes mellitus in first degree relative CHF (congestive heart failure) Sibling Diabetes mellitus Renal failure Other Family history of malignant neoplasm Social History Social History Smoking packs per day: 1 Smoking cigarettes per day: 20.0 Years smoked: 51 Smoking pack-years: 51.00 Tobacco type: cigarettes Second hand tobacco smoke exposure: Yes Alcohol intake: never Substance use: never Substance use type: does not use 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 EYES: PERRLA and EOMI. ENT: Nares clear, no rhinorrhea or epistaxis. Mucous membranes dry. NECK: Supple. CHEST: No respiratory distress, breathing even and non labored, no chest wall tenderness HEART: Regular rate, sinus rhythm ABDOMEN:Non distended, mildly tender in the epigastric
--- NOTE | 2021-11-11 02:29 | ECG_ITS ---
Measurements Intervals [place] Rate: 59 P: 62 FL: 184 QRS: 50 QRSD: 106 T: 78 QT: 416 QTc: 413 Interpretive Statements SINUS BRADYCARDIA NONSPECIFIC ST & T-WAVE ABNORMALITY LEFT VENTRICULAR HYPERTROPHY BORDERLINE ECG COMPARED TO ECG 09/19/2021 15:01:06 SINUS BRADYCARDIA NOW PRESENT Electronically Signed On 11-11-2021 16:03:38 CDT by Kevin Paris M.D.
[2021-11-11 02:42] LABS: Basophils Absolute Auto 0.1 K/mm3 (0.0-0.1); Basophils Percent Auto 0.7 % (0.2-1.2); Eosinophils Absolute Auto 0.4 K/mm3 (0-0.3); Hematocrit 40.9 % (42.0-52.0); Hemoglobin 13.3 g/dL (14.0-18.0); Immature Granulocyte Absolute 0.05 K/mm3 (0.00-0.031); Immature Granulocyte Percent A 0.3 % (0-0.5); Lymphocytes Absolute Auto 5.14 K/mm3 (0.9-3.2); Lymphocytes Percent Auto 35.3 % (18.3-44.2); Mean Corpuscular HGB Conc 32.5 g/dl (32-36); Mean Corpuscular Hemoglobin 32.2 pg (26-34); Mean Platelet Volume 9.7 fl (7.4-10.4); Monocytes Absolute Auto 1.2 K/mm3 (0.1-0.6); Neutrophils Absolute Auto 7.7 K/mm3 (1.3-6.7); Neutrophils Percent Auto 52.7 % (45.5-73.1); Platelet Count Result 327 k/mm3 (150-375); Red Blood Count 4.13 M/mm3 (4.6-6.20); Red Cell Distribution Width 13.6 % (11.5-14.5); White Blood Count 14.6 K/mm3 (4.5-10.0)
[2021-11-11] MEDS: SODIUM CHLORIDE 0.9% IV 1,000 ML 999 ML IV CONT (02:47)
[2021-11-11 02:53] LABS: Alanine Aminotransferase 51 U/L (6-50); Albumin Level 4.1 g/dL (3.5-5.1); Alkaline Phosphatase 109 U/L (38-126); Anion Gap 8 mmol/L (8-16); Aspartate Amino Transferase 33 U/L (17-59); Bilirubin,Total 0.2 mg/dL (0.2-1.3); Blood Urea Nitrogen 26 mg/dL (9-20); Carbon Dioxide 26 mmol/L (22-30); Chloride 103 mmol/L (98-107); Estimated CRCL calculation 75 ml/min; Estimated Glomerular Filt Rate > 60; Glucose 219 mg/dL (65-110); INR 1.1; Lipase 132 U/L (23-300); Prothrombin Time 13.5 Seconds (11.1-14.7); Sodium 137 mmol/L (137-145)
[2021-11-11 02:54] LABS: Partial Thromboplastin Time 26.2 SECONDS (22.3-36.8)
[2021-11-11 03:04] LABS: Troponin I 0.015 ng/mL (0.000-0.034)
[2021-11-11 03:15] LABS: D Dimer 0.79 ug/mL (<0.48)
[2021-11-11 05:56] LABS: Troponin I 0.015 ng/mL (0.000-0.034)
[2021-11-11] MEDS: MORPHINE SULFATE (*CRX) 4 MG/ML INJ IV PUSH (06:05)
[2021-11-11] MEDS: ONDANSETRON INJ 4 MG/2 ML VIAL IV PUSH (06:11)
--- NOTE | 2021-11-11 06:48 | ADMGEN ---
This patient, Vic Oro Jr., was admitted to IMU Room 202-. Patient/family oriented to hospital policies and general routines including ID bracelet, bed and alarms, visiting hours, pain management, procedures, bathroom and other care routines, personal items, smoking policy, room service/diet, and visiting hours. Information on how to activate the Rapid Response Team has been discussed. Patient/Family are encouraged to report perceived risks to care and to ask questions if they do not understand what they are told or what they should do.
[2021-11-11 08:55] LABS: Troponin I 0.015 ng/mL (0.000-0.034)
[2021-11-11] MEDS: AMOXICILLIN/CLAVULANATE K 875-125 MG TAB 1 TABLET PO (09:36)
[2021-11-11] MEDS: MORPHINE SULFATE (*CRX) 4 MG/ML INJ 2 MG IV PUSH (09:45)
--- NOTE | 2021-11-11 13:06 | PCNSR ---
On 11/11/21, the student, Lawanda Whipple, provided care and completed [facility] documentation on this patient. I have reviewed the student's documentation and agree with the findings.
--- NOTE | 2021-11-11 13:52 | PM.IMHP ---
H&P: HPI History of Present Illness Date/Time: 11/11/21 13:52 Chief Complaint: The patient is a 66-year-old male with a history of hypertension, hyperlipidemia, chronic pancreatitis and pancreatic cancer, CABG presenting to the emergency department for evaluation of left-sided chest pain and right upper quadrant abdominal pain.? Patient reports that he has had intermittent chest pain over several days.? Chest pain is in the left side of his chest without radiation to the neck, jaw, shoulder, back.? He reports associated right lower abdominal pain without nausea or vomiting.? Patient denies fever or chills.? Patient denies diarrhea or constipation.? Patient states that he was sitting in his chair when he had acute onset of left-sided chest pain at rest.? He denies associated diaphoresis, shortness of breath.? No ripping or tearing sensation to the flank.? Patient contacted EMS and patient was given oral aspirin in route.? His chest pain had resolved thus they did not administer any nitroglycerin.? EKG without acute ST segment changes per EMS. When I evaluated the patient he was complaining of some mild right lower quadrant/right hip pain. Patient is able walk. Reports that his pain was better. Left-sided chest pain had resolved occasionally gets pain when he moves his left shoulder. Otherwise he was sleeping appeared comfortable on walking Review of Systems Review of Systems: 10 point ROS negative except as stated in HPI / Subjective PMFSH Past Medical History Medical History Anxiety Bipolar disorder, unspecified BMI 21.0-21.9, adult Bowel habit changes Chronic pancreatitis Colonoscopy planned COVID Essential hypertension Mixed hyperlipidemia Pancreatic cancer Weight loss Surgical History Surgical History History of endoscopy History of pancreatectomy History of splenectomy S/P CABG (coronary artery bypass graft) Family History Family History Father Hypertension Cerebrovascular accident Family history of coronary artery disease Family history of cardiovascular disease CHF (congestive heart failure) Mother Family history of diabetes mellitus in first degree relative CHF (congestive heart failure) Sibling Diabetes mellitus Renal failure Other Family history of malignant neoplasm Social History Social History Smoking packs per day: 1 Smoking cigarettes per day: 20.0 Years smoked: 51 Smoking pack-years: 51.00 Smoking status: Current every day smoker Tobacco type: cigarettes Second hand tobacco smoke exposure: Yes Alcohol intake: former Substance use: never Substance use type: does not use 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 Gender identity (if verbalized by the patient): Male Spiritual care concerns: No Meds Home Medications and Allergies Home Medications Medication Instructions Recorded Confirmed Type lancets 33 gauge (BD Ultra Fine #100 ea 05/13/20 11/11/21 Rx Lancets) lancets (ReliOn Ultra Thin Plus #100 ea 08/12/20 11/11/21 Rx Lancets) blood sugar diagnostic (Contour #70 ea 09/15/20 11/11/21 Rx Next Test Strips) insulin lispro 100 unit/mL See Rx Instructions subcut .QAC & 04/01/21 11/11/21 Rx subcutaneous pen (Humalog KwikPen QHS #3 mL (U-100) Insulin) carvedilol 6.25 mg tablet 6.25 mg PO Q12H #60 tabs 06/26/21 11/11/21 Rx lovastatin 20 mg tablet 20 mg PO HS #30 tabs 07/02/21 11/11/21 Rx enalapril maleate 5 mg tablet 5 mg PO DAILY #30 tabs 07/24/21 11/11/21 Rx lithium carbonate 300 mg capsule 600 mg PO BID #120 caps 09/04/21 11/11/21 Rx insulin glargine 100 unit/mL (3 20 unit (0.2 mL) subcut QPM #15 mL 09/08/21 11/11/21 Rx mL) subcutaneous pen (Lantus Solostar U-100 Insulin) i
--- NOTE | 2021-11-11 14:03 | PM.DS ---
DS: Admitting Diagnosis Discharge Date November 11, 2021 Admitting Diagnosis Chest pain and abdominal pain DS: Discharge Diagnosis Discharge Diagnosis (1) Chronic pancreatitis: Qualifiers: Pancreatitis type: idiopathic Qualified Code(s): K86.1 - Other chronic pancreatitis Code(s): K86.1 - Other chronic pancreatitis Status: Acute (2) Pancreatic cancer: Qualifiers: Pancreatic malignancy location: tail of pancreas Qualified Code(s): C25.2 - Malignant neoplasm of tail of pancreas Code(s): C25.9 - Malignant neoplasm of pancreas, unspecified Status: Acute Assessment and Plan: History of. Patient needs to with his oncologist and also follow up with his surgeon. Patient reports he has been lost for a year. CT scan noted (3) Mixed hyperlipidemia: Code(s): E78.2 - Mixed hyperlipidemia Status: Acute Assessment and Plan: Resume home meds on discharge (4) Essential hypertension: Code(s): I10 - Essential (primary) hypertension Status: Acute Assessment and Plan: Resume meds discharge (5) Bipolar disorder, unspecified: Qualifiers: Active/Remission status: in remission of unspecified degree Qualified Code(s): F31.70 - Bipolar disorder, currently in remission, most recent episode unspecified Code(s): F31.9 - Bipolar disorder, unspecified Status: Acute (6) Anxiety: Code(s): F41.9 - Anxiety disorder, unspecified Status: Acute (7) Depression: Code(s): F32.9 - Major depressive disorder, single episode, unspecified Status: Acute (8) Abdominal pain: Code(s): R10.9 - Unspecified abdominal pain Status: Acute Assessment and Plan: CT scan was read as negative. No intervention needed. (9) Chest pain: Code(s): R07.9 - Chest pain, unspecified Status: Acute Assessment and Plan: Troponins negative. Chest pain is not cardiac. He reports worsening pain left pectoralis muscle in his shoulder. This is likely musculoskeletal DS: Summary Hospital Course Hospital Course: Patient was admitted for chest pain cardiac enzymes are negative. Chest pain likely related to musculoskeletal issues as his pain is with moving his left shoulder. Also had abdominal pain CT scan negative. History of pancreatic cancer. Patient has lost follow up to see a oncologist/surgeon over in [place]. Strongly recommend he follow up with him in follow-up with primary care physician. Otherwise no evidence of anything on his CT scan. Patient is tolerating diet can be discharged home Time Spent with Patient Time attestation: Total time spent providing and/or coordinating discharge services: Exam Narrative: General: alert and oriented Psych: appropriate mood nad affect Eyes: PERRLA Neck: Trachea midline, no new lesions Skin: no changes Lungs: CTA Cardiac: Normal S1,S2, no MGR ABD: soft, nd, nt, nbs Ext: no new lesions, no cce Vasc: Pulses intact DS: Data Data Completed and Pending Labs on day of discharge: Labs from last 24 hours 11/11/21 11/11/21 11/11/21 08:13 05:25 02:35 WBC RBC Hgb Hct MCV MCH MCHC RDW Plt Count MPV Immature Gran % (Auto) Neut % (Auto) Lymph % (Auto) [place] % (Auto) Eos % (Auto) Baso % (Auto) Lymph # (Auto) [place] # (Auto) Eos # (Auto) Baso # (Auto) Abs Immat Gran (auto) Absolute Neuts (auto) Absolute Nucleated RBC Nucleated RBC % PT INR APTT D-Dimer Sodium 137 Potassium 4.0 Chloride 103 Carbon Dioxide 26 Anion Gap 8 BUN 26 H Creatinine 0.80 Estim Creat Clear Calc 75 Estimated GFR > 60 Glucose 219 H Calcium 10.0 Total Bilirubin 0.2 AST 33 ALT 51 H Alkaline Phosphatase 109 Troponin I 0.015 0.015 0.015 Total Protein 7.0 Albumin 4.1 Lipase 132 11/11/21 11/11/21 02:35 02:35
== END 2021-11-11 15:30 | disposition home or self-care (01) ==
LOC: ANHED 03:02 → ANHIMU 06:06
PROVIDERS: Admitting Provider Internal Medicine; Emergency Provider Emergency Medicine; PCP Family Medicine; Visit Provider Chiropractor
DX: K86.1 Other chronic pancreatitis (principal); R07.9 Chest pain, unspecified; R10.31 Right lower quadrant pain; I10 Essential (primary) hypertension; E78.5 Hyperlipidemia, unspecified; Z85.07 Personal history of malignant neoplasm of pancreas; Z95.5 Presence of coronary angioplasty implant and graft; Z86.16 Personal history of COVID-19; F17.210 Nicotine dependence, cigarettes, uncomplicated; F31.70 Bipolar disorder, currently in remission, most recent episode unspecified; F41.8 Other specified anxiety disorders
CPT/HCPCS: 36415; 71046; 71275; 74177; 80053; 83690; 84484; 85025; 85380; 85610; 85730; 93005; 96361; 96374; 96375; 96376; 99285; A9270; G0378; G0379; J2270; J2405; J7030; Q9967

== ENCOUNTER 2021-12-04 05:04 | Observation (INO) | payer MEDICARE, MEDICAID, SELFPAY ==
[2021-12-04] VITALS (60 sets, daily range): BP systolic 106–167; BP diastolic 63–98; PULSE 67–103; RESP 15–36; TEMP 36.5–38.7; O2SAT 93–100; BMI 20.9
--- NOTE | 2021-12-04 | ECHO_ITS ---
Patient Info Name: Vic Oro Age: 66 years : 1955 Gender: Male HR: 94 bpm BP: 160 / 91 mmHg Heart Rhythm: Sinus Rhythm Technical Quality: Fair Exam Date: 12/04/2021 2:57 PM Exam Location: [facility] Patient Status: Outpatient Admit Date: 12/04/2021 Staff Ordering Physician: Baltazar Lang DO Workers' Compensation Commissioner: Aixa Huff RDCS Attending Provider: Kiley Wheatley MD Referring Physician: Rickey CHURCH; Exam Type: CA echo doppler color flow Study Info Indications - cp, covid infection Complete two-dimensional, color flow and Doppler transthoracic echocardiogram is performed. Summary 1. Complete two-dimensional, color flow and Doppler transthoracic echocardiogram is performed. 2. Left ventricular systolic function is preserved, estimated at 50-55%. 3. Left ventricular chamber dimension is mildly enlarged. 4. The left ventricular diastolic function is grade I diastolic dysfunction. 5. E/e' 9 is minimally elevated. 6. Right ventricular systolic function is reduced based on abnormal TAPSE 1.2 cm. 7. Left atrial chamber dimension is mildly enlarged. 8. There is trace mitral valve regurgitation. 9. No pulmonary hypertension, estimated pulmonary arterial systolic pressure is 14 mmHg. Left Ventricle E/e' 9 is minimally elevated. Left ventricular systolic function is preserved, estimated at 50-55%. Left ventricular chamber dimension is mildly enlarged. The left ventricular diastolic function is grade I diastolic dysfunction. Right Ventricle Right ventricular systolic function is reduced based on abnormal TAPSE 1.2 cm. Right ventricular chamber dimension is not well visualized. Left Atria Left atrial chamber dimension is mildly enlarged. Right Atria Right atrial chamber dimension is normal. Aortic Valve The aortic valve is trileaflet. There is no aortic valve stenosis. There is no aortic valve regurgitation. Pulmonic Valve There is no pulmonic regurgitation. Mitral Valve There is no mitral valve stenosis. There is trace mitral valve regurgitation. Tricuspid Valve There is no tricuspid valve regurgitation. No pulmonary hypertension, estimated pulmonary arterial systolic pressure is 14 mmHg. Pericardium/Pleural There is no pericardial effusion. Inferior Vena Cava Normal inferior vena cava with >50% collapse upon inspiration consistent with normal right atrial pressure, 5 mmHg. Aorta The aortic root size at the sinus of Valsalva is normal. Left Ventricular Outflow Tract Name Value Normal LVOT 2D LVOT Diameter 2.1 cm LVOT Doppler LVOT Peak Gradient 2 mmHg LVOT Mean Gradient 1 mmHg LVOT VTI 13 cm LVOT VTI/AV VTI Ratio 0.7 LVOT Stroke Volume 47 ml LVOT CO 4.0 l/min Pulmonic Valve Name Value Normal RVOT Yoly
--- NOTE | ~2021-12-04 | CT_ITS ---
EXAMINATION: CTA chest PE abdomen pel DATE: 12/04/2021 06:50 INDICATION: COVID positive presenting with chest pain. TECHNIQUE: Computed tomography (CT) pulmonary angiogram of the chest was performed with 100 mL Omnipa que-350 intravenous contrast. Additional 3D reconstructions utilizing coronal maximum intensity proje ction (MIP) were performed. CT of the abdomen and pelvis was performed with intravenous contrast util izing the same contrast bolus following a short delay. Automated exposure control and iterative recon struction technique were employed. The dose-length product was 608.86 mGy-cm. COMPARISON: None FINDINGS: Chest: Good contrast opacification of the pulmonary arteries. There is mild streak artifact from dense contr ast in the superior vena cava and right atrium. Moderate respiratory motion at the lung bases which d ecreases sensitivity in the basilar subsegmental pulmonary arteries. No evident pulmonary embolism. M ild to moderate emphysema. 4-5 mm pulmonary nodule in the superior segment of the right lower lobe. L arger calcified nodule at the azygos esophageal recess of the right lower lobe along with calcified r ight hilar lymph node consistent with old granulomatous disease. Heart size is normal. Atheroscleroti c coronary artery calcification with change of prior median sternotomy and coronary artery bypass gra fting. No pericardial effusion. Thoracic aorta is normal in caliber with no dissection. Thoracic dex troscoliosis with mild spondylosis. There are bridging osteophytes at multiple levels in the spine, c onsistent with diffuse idiopathic skeletal hyperostosis (DISH). Abdomen/pelvis: A few tiny hepatic calcification consistent with old granulomatous disease. Likely prior splenectomy and distal pancreatectomy with suture line extending across the body of the pancreas with absent tail of the pancreas and spleen. Gallbladder, bilateral adrenal glands and kidneys are normal. Moderately distended bladder. Prostatomegaly measuring 5.0 x 4.1 cm. Moderate amount of colonic stool with a fe w scattered colonic diverticula without adjacent inflammatory change to suggest diverticulitis. Sloane l appendix. No dilated bowel to suggest obstruction. No free intraperitoneal gas or fluid. No patholo gically enlarged abdominal or pelvic lymphadenopathy. Mild degenerative skeletal changes in the lumba r spine and pelvis. IMPRESSION: 1. No pulmonary embolism or other acute cardiopulmonary disease. 2. Mild to moderate emphysema with 4-5 mm right lower lobe pulmonary nodule. Optional follow-up chest CT could be considered at 12 months. 3. Prostatomegaly. Reviewed, dictated and finalized at location A. IMPRESSION: 1. No pulmonary embolism or other acute cardiopulmonary disease. 2. Mild to moderate emphysema with 4-5 mm right lower lobe pulmonary nodule. Op tional follow-up chest CT could be considered at 12 months. 3. Prostatomegaly.
--- NOTE | ~2021-12-04 | XR_ITS ---
EXAMINATION: XR chest 1V portable DATE: 12/04/2021 06:23 INDICATION: Bilateral chest pain TECHNIQUE: frontal view of the chest was obtained. COMPARISON: Chest radiograph dated 11/11/2021 FINDINGS: The lungs remain clear with no focal airspace opacities, pulmonary edema, pleural effusion or pneumot horax. The cardiomediastinal silhouette is normal. Median sternotomy wires and mediastinal surgical c lips are seen, likely from prior coronary artery bypass grafting. IMPRESSION: 1. No acute cardiopulmonary disease. Reviewed, dictated and finalized at location A.
--- NOTE | 2021-12-04 05:24 | ECG_ITS ---
Measurements Intervals [place] Rate: 94 P: 72 [place]: 162 QRS: 69 QRSD: 105 T: 67 QT: 365 QTc: 457 Interpretive Statements SINUS RHYTHM POSSIBLE LEFT ATRIAL ENLARGEMENT LEFT VENTRICULAR HYPERTROPHY WITH ST-T CHANGE NONSPECIFIC ST & T-WAVE ABNORMALITY- DIFFUSE LEADS BORDERLINE ECG BASELINE ARTIFACT- I, II, III COMPARED TO ECG 11/11/2021 02:32:43 HR HAS INCREASED Electronically Signed On 12-04-2021 6:39:53 CDT by Baltazar Lang D.O.
--- NOTE | 2021-12-04 05:28 | ED.GENADULT ---
HPI - General Adult General Chief complaint: Chest Pain Stated complaint: CHEST PAIN Time Seen by Provider: 12/04/21 05:12 History of Present Illness HPI narrative: Patient is a 66-year-old gentleman who presents the emergency department with chief complaint of chest pain. Patient reports he has history of cardiac disease also has history of pancreatic cancer that was treated with pancreatectomy. The patient has also had chronic pancreatitis as well. The patient states that tonight he woke up was having pain in his chest described as a tightness the patient states he did not get short of breath with it reports the pain was resolved by sublingual nitro. The patient had a prehospital EKG that showed nonspecific T wave abnormalities which appears very similar to previous EKGs. The patient states this point that he is not having any discomfort in his chest. Related Data Allergies Allergy/AdvReac Type Severity Reaction Status Date / Time ciprofloxacin [From Cipro] Allergy Mild Rash Verified 12/04/21 05:12 Sulfa (Sulfonamide Allergy Mild rash Verified 12/04/21 05:12 Antibiotics) codeine AdvReac Mild nausea Verified 12/04/21 05:12 Review of Systems Review of Systems: A 10 system review of systems was completed on the patient and is negative except for what is stated in the HPI. Nursing and ancillary documentation was reviewed. [facility] Past Medical History Medical History Anxiety Bipolar disorder, unspecified BMI 21.0-21.9, adult Bowel habit changes Chronic pancreatitis Colonoscopy planned COVID Essential hypertension Mixed hyperlipidemia Pancreatic cancer Weight loss Surgical History Surgical History History of endoscopy History of pancreatectomy History of splenectomy S/P CABG (coronary artery bypass graft) Family History Family History Father Hypertension Cerebrovascular accident Family history of coronary artery disease Family history of cardiovascular disease CHF (congestive heart failure) Mother Family history of diabetes mellitus in first degree relative CHF (congestive heart failure) Sibling Diabetes mellitus Renal failure Other Family history of malignant neoplasm Social History Social History Smoking packs per day: 1 Smoking cigarettes per day: 20.0 Years smoked: 51 Smoking pack-years: 51.00 Smoking status: Current every day smoker Tobacco type: cigarettes Second hand tobacco smoke exposure: Yes Alcohol intake: former Substance use: never Substance use type: does not use 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 HEAD: Normocephalic, atraumatic. EYES: PERRLA and EOMI. ENT: Nares clear, no rhinorrhea or epistaxis. Mucous membranes moist. NECK: Supple. CHEST: Clear to auscultation. No respiratory distress. HEART: Regular rate and rhythm. No murmur heard. Normal peripheral pulses. ABDOMEN: Soft, nontender, nondistended, normal active bowel sounds. EXTREMITIES: Normal range of motion. No edema. SKIN: Warm, dry, no rash. NEURO: No focal deficits. Alert and oriented x3. PSYCH: Normal mood and affect. Course Vital Signs Vital signs: Vital Signs Temperature 37.6 C H 12/04/21 05:03 Pulse Rate 103 H 12/04/21 05:03 Respiratory Rate 22 H 12/04/21 05:03 Blood Pressure 139/98 H 12/04/21 05:03 Pulse Oximetry 94 12/04/21 05:03 Oxygen Delivery Room Air 12/04/21 05:03 Temperature 37.6 C H 12/04/21 05:03 Pulse Rate 94 12/04/21 07:00 Respiratory Rate 34 H 12/04/21 07:00 Blood Pressure
[2021-12-04] MEDS: ONDANSETRON INJ 4 MG/2 ML VIAL IV PUSH (05:30)
[2021-12-04 05:37] LABS: Basophils Absolute Auto 0.1 K/mm3 (0.0-0.1); Basophils Percent Auto 0.9 % (0.2-1.2); Eosinophils Absolute Auto 0.3 K/mm3 (0-0.3); Eosinophils Percent Auto 2.6 % (0-4.4); Hematocrit 40.1 % (42.0-52.0); Hemoglobin 13.3 g/dL (14.0-18.0); Immature Granulocyte Absolute 0.04 K/mm3 (0.00-0.031); Immature Granulocyte Percent A 0.4 % (0-0.5); Lymphocytes Absolute Auto 0.63 K/mm3 (0.9-3.2); Lymphocytes Percent Auto 5.7 % (18.3-44.2); Mean Corpuscular HGB Conc 33.2 g/dl (32-36); Mean Corpuscular Hemoglobin 32.6 pg (26-34); Mean Corpuscular Volume 98.3 fl (80-100); Mean Platelet Volume 10.6 fl (7.4-10.4); Monocytes Absolute Auto 1.1 K/mm3 (0.1-0.6); Monocytes Percent Auto 9.8 % (2.6-8.5); Neutrophils Absolute Auto 8.9 K/mm3 (1.3-6.7); Neutrophils Percent Auto 80.6 % (45.5-73.1); Platelet Count Result 313 k/mm3 (150-375); Red Blood Count 4.08 M/mm3 (4.6-6.20); Red Cell Distribution Width 13.5 % (11.5-14.5)
[2021-12-04 05:47] LABS: Alanine Aminotransferase 57 U/L (6-50); Albumin Level 4.3 g/dL (3.5-5.1); Alkaline Phosphatase 117 U/L (38-126); Anion Gap 12 mmol/L (8-16); Aspartate Amino Transferase 34 U/L (17-59); Bilirubin,Total 0.3 mg/dL (0.2-1.3); Blood Urea Nitrogen 15 mg/dL (9-20); Calcium 9.7 mg/dL (8.4-10.2); Carbon Dioxide 25 mmol/L (22-30); Chloride 100 mmol/L (98-107); Estimated Glomerular Filt Rate > 60; Glucose 237 mg/dL (65-110); Lipase 35 U/L (23-300); Sodium 137 mmol/L (137-145)
[2021-12-04 05:54] LABS: INR 1.1; Prothrombin Time 13.5 Seconds (11.1-14.7)
[2021-12-04 05:55] LABS: Partial Thromboplastin Time 26.7 SECONDS (22.3-36.8)
[2021-12-04 05:58] LABS: NT Pro B Type Natriuretic Pept 486 pg/mL (5-100); Troponin I < 0.012 ng/mL (0.000-0.034)
[2021-12-04 06:19] LABS: Influenza A QL RT-PCR Negative (Negative); Influenza B QL RT-PCR Negative (Negative); SARS-CoV-2 RNA PCR Positive
[2021-12-04] MEDS: MORPHINE SULFATE (*CRX) 4 MG/ML INJ IV PUSH (07:04)
[2021-12-04 08:07] LABS: Appearance Urine Clear (Clear); Bilirubin Urine Negative (Negative); Blood Urine Negative (Negative); Color Urine Yellow (Yellow); Glucose Urine UA 2+ mg/dL (Negative); Ketones Urine Negative (Negative); Leukocyte Esterase Ur Negative LEU/UL (Negative); Nitrate Urine Negative (Negative); Protein Urine Trace mg/dL (Negative); Specific Grav Ur 1.015 (1.001-1.035); Urobilinogen Urine 0.2 mg/dL (<2.0); pH Urine 6.5 (5.0-9.0)
--- NOTE | 2021-12-04 08:14 | PM.CNCAR ---
Assessment and Plan Assessment and plan (1) Chest pain: Code(s): R07.9 - Chest pain, unspecified Status: Acute Assessment and Plan: Atypical. Thus far EKG and first troponin are unremarkable. Could be related to covid infection. Follow serial troponin. Obtain echo. If troponin and echo are unremarkable, may d/c home from cardiology standpoint and f/u with me in 2-3 weeks. (2) COVID-19: Code(s): U07.1 - COVID-19 Status: Acute Assessment and Plan: Management as per hospitalist. (3) Abdominal pain: Qualifiers: Abdominal location: generalized Qualified Code(s): R10.84 - Generalized abdominal pain Code(s): R10.9 - Unspecified abdominal pain Status: Acute Assessment and Plan: Probably related to chronic pancreatitis. (4) CAD (coronary artery disease), autologous vein bypass graft: Code(s): I25.810 - Atherosclerosis of coronary artery bypass graft(s) without angina pectoris Status: Acute (5) Mixed hyperlipidemia: Code(s): E78.2 - Mixed hyperlipidemia Status: Acute Assessment and Plan: On Lovastatin. (6) Essential hypertension: Code(s): I10 - Essential (primary) hypertension Status: Acute Assessment and Plan: Stable. (7) Tobacco abuse: Code(s): Z72.0 - Tobacco use Status: Acute Assessment and Plan: Counseled regarding smoking cessation. History of Present Illness History of Present Illness Consult date/time: 12/04/21 08:14 Consult reason: chest pain Reason For Visit: CHEST PAIN Narrative: 66 yr old man presents to ER by ambulance with chest pain. He has a history of CABG x 5 vessels at [facility] in May 2011 and had stents prior to CABG, DM, hypertension, dyslipidemia, smoking, emphysema, history of pancreatic cancer s/p pacreatectomy in 2019 and has chronic pancreatitis since Reports he lives with his son and grandson who just got over Covid infection the last 5 days. He has not had covid vaccines. Last night he went to bed at his usual time of 8 pm and woke up with chest tightness at 10 pm. He called ambulance and was brought to ER. He was given NTG SL and after the second one his chest tightness resolved. He reports having associated symptoms last night of fever, chills, headache, fatigue, sob. He does smoke 1 ppd. 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 Review of Systems Review of Systems: All systems reviewed & are unremarkable except as noted in HPI and below Constitutional: Constitutional: Reports as per HPI, Reports chills, Reports fatigue and Reports fever(s) Cardiovascular: Cardiovascular: Reports as per HPI, Reports chest pain, Denies leg edema and Denies lightheadedness Respiratory: Respiratory: Reports as per HPI and Reports dyspnea Gastrointestinal: Gastrointestinal: Reports as per HPI and Reports abdominal pain Genitourinary: Genitourinary: Reports as per HPI and Denies dysuria Musculoskeletal: Musculoskeletal: Reports as per HPI Neurologic: Reports as per HPI, Denies dizziness and Denies syncope [facility] Past Medical History Medical History Anxiety Bipolar disorder, unspecified BMI 21.0-21.9, adult Bowel habit changes Chronic pancreatitis Colonoscopy planned COVID Essential hypertension Mixed hyperlipidemia Pancreatic cancer Weight loss Surgical History Surgical History History of endoscopy History of pancreatectomy History of splenectomy S/P CABG (coronary artery bypass graft) Family History Family History Father Hypertension Cerebrovascular accident Family history of coronary artery disease Family history of cardiovascular disease CHF (congestive heart failure) Mother Family history of diabetes mellitus in first degree relative Decea
[2021-12-04 08:18] LABS: Add Urine Microscopic? YES; RBC Urine 0-2 /hpf (0-2); WBC Urine 0-3 /hpf
[2021-12-04 09:05] LABS: Troponin I 0.017 ng/mL (0.000-0.034)
[2021-12-04] MEDS: ALBUTEROL SULFATE NEB 2.5 MG/3 ML INH 5 MG INHALATION (09:54)
[2021-12-04] MEDS: IPRATROPIUM BR 0.02% INH SOLN 0.5 MG/2.5 ML VIAL INHALATION (09:54)
[2021-12-04 11:53] LABS: Glucose Point of Care 252 mg/dl (65-105)
--- NOTE | 2021-12-04 12:38 | PM.IMHP ---
H&P: HPI History of Present Illness Date/Time: 12/04/21 12:38 Chief Complaint: Chest pain Narrative: This is a 66-year-old male patient with a history of pancreatic cancer status post Whipple. The patient stated that he woke up last night was having chest pain is described as a tightness. His pain resolved with sublingual nitro. His white count is 11.0. H&H 13.3 and 40.1. Blood sugar 237 and 252. Cardiac enzymes are negative x3. He has a history of a 6 vessel CABG. He is diabetic and stop taking his NovoLog but takes a long-acting insulin instead. Chest x-ray was read as no acute cardiopulmonary disease. Chest abdomen pelvis CT was read as the following 1. No pulmonary embolism or other acute cardiopulmonary disease. 2. Mild to moderate emphysema with 4-5 mm right lower lobe pulmonary nodule. Optional follow-up chest CT could be considered at 12 months. 3. Prostatomegaly. His fever is 37.6. The patient is being admitted to observation status on the date of service of 12/04/2021. Review of Systems Review of Systems: See HPI All systems reviewed & are unremarkable except as noted in HPI and below Constitutional: Constitutional: Reports as per HPI and Reports no additional constitutional complaints Eyes: Eyes: Reports as per HPI and Reports no additional eye complaints ENT: Reports system reviewed and no additional complaints, except as documented and Reports Normal hearing present Cardiovascular: Cardiovascular: Reports no additional cardiovascular complaints Respiratory: Respiratory: Reports no additional respiratory complaints and Reports no additional respiratory complaints Gastrointestinal: Gastrointestinal: Reports as per HPI and Reports no additional gastrointestinal complaints Musculoskeletal: Musculoskeletal: Reports no additional musculoskeletal complaints Integumentary/Breasts: Skin/Breast: Reports system reviewed and no additional complaints, except as docu and Reports as per HPI Neurologic: Reports system reviewed and no additional complaints, except as documented, Reports as per HPI and Reports Normal hearing present Psychiatric: Psychiatric: Reports no additional psychiatric complaints and Reports as per HPI Endocrine: Endocrine: Reports no additional endocrine complaints Hematologic/Lymphatic: Hematologic/Lymphatic: Reports no additional hematologic/lymphatic complaints Allergic/Immunologic: Allergic/Immunologic: Reports no additional allergic/immunologic complaints [facility] Past Medical History Medical History (Updated 12/04/21 @ 14:28 by Rose Garcia NP) Anxiety Bipolar disorder, unspecified BMI 21.0-21.9, adult Bowel habit changes Chronic pancreatitis Colonoscopy planned COVID Diabetes Diabetes type 2, controlled Essential hypertension Mixed hyperlipidemia Pancreatic cancer Weight loss Surgical History Surgical History (Updated 12/04/21 @ 14:20 by Rose Garcia NP) H/O Whipple procedure History of endoscopy History of pancreatectomy History of splenectomy S/P CABG (coronary artery bypass graft) 6 vessel Family History Family History Father Hypertension Cerebrovascular accident Family history of coronary artery disease Family history of cardiovascular disease CHF (congestive heart failure) Mother Family history of diabetes mellitus in first degree relative CHF (congestive heart failure) Sibling Diabetes mellitus Renal failure Other Family history of malignant neoplasm Social History Social History (Updated 12/04/21 @ 14:22 by Rose Garcia NP) Social History: He lives with his and is raising his grandson. He has 4 children. 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 He still continues to smoke a pack a cigarettes a day. He denies any alcohol marijuana or illicit drugs. His is the durable power personal injury attorney for healthcare. Code status full code Smoking
[2021-12-04 14:00] LABS: Troponin I 0.016 ng/mL (0.000-0.034)
[2021-12-04] MEDS: ASPIRIN 81 MG CHEWABLE TABLET PO (15:13)
[2021-12-04] MEDS: SERTRALINE HCL 50 MG TABLET PO (15:13)
[2021-12-04] MEDS: ISOSORBIDE MONONITRATE 30 MG TAB.ER.24H PO (15:13)
[2021-12-04] MEDS: ENALAPRIL MALEATE 5 MG TABLET PO (15:13)
--- NOTE | 2021-12-04 16:09 | PHAR ---
DRUG NAME: CRYSTAL INGREDIENTS: AMYLASE -- 118866 U LIPASE -- [id number] U PROTEASE -- [id number] U RELATED DOCUMENTS: DRUGDEX EVALUATIONS - PANCRELIPASE COLOR: ORANGE OPAQUE , WHITE OPAQUE SHAPE: CAPSULE-SHAPE IMPRINT: APTALIS 40 FORM: ORAL CAPSULE, DELAYED RELEASE
[2021-12-04 16:35] LABS: Glucose Point of Care 268 mg/dl (65-105)
[2021-12-04] MEDS: INSULIN ASPART (*BKC) 100 UNITS/ML SUB-Q (16:49)
[2021-12-04] MEDS: carvediloL 6.25 MG TABLET PO (16:54)
[2021-12-04] MEDS: LITHIUM CARBONATE 300 MG CAPSULE 600 MG PO (16:56)
[2021-12-04] MEDS: INSULIN GLARGINE (*BKC) 100 UNITS/ML 20 UNITS SUB-Q (17:01)
[2021-12-04] MEDS: ACETAMINOPHEN 325 MG TABLET 650 MG PO (18:48)
[2021-12-04] MEDS: LOVASTATIN 20 MG TABLET PO (20:47)
[2021-12-04 20:59] LABS: Glucose Point of Care 245 mg/dl (65-105)
[2021-12-05] VITALS (8 sets, daily range): BP systolic 99–154; BP diastolic 73–96; PULSE 63–80; RESP 16–22; TEMP 36.4–37.3; O2SAT 94–97
[2021-12-05 06:58] LABS: Basophils Absolute Auto 0.1 K/mm3 (0.0-0.1); Basophils Percent Auto 0.8 % (0.2-1.2); Eosinophils Percent Auto 0.3 % (0-4.4); Hematocrit 43.5 % (42.0-52.0); Hemoglobin 14.3 g/dL (14.0-18.0); Immature Granulocyte Absolute 0.03 K/mm3 (0.00-0.031); Immature Granulocyte Percent A 0.3 % (0-0.5); Lymphocytes Absolute Auto 2.21 K/mm3 (0.9-3.2); Lymphocytes Percent Auto 22.6 % (18.3-44.2); Mean Corpuscular HGB Conc 32.9 g/dl (32-36); Mean Corpuscular Hemoglobin 32.1 pg (26-34); Mean Corpuscular Volume 97.8 fl (80-100); Monocytes Absolute Auto 1.6 K/mm3 (0.1-0.6); Monocytes Percent Auto 15.9 % (2.6-8.5); Neutrophils Absolute Auto 5.9 K/mm3 (1.3-6.7); Neutrophils Percent Auto 60.1 % (45.5-73.1); Nucleated Red Blood Cells Perc 0.2 % (0.0-0.2); Platelet Count Result 288 k/mm3 (150-375); Red Blood Count 4.45 M/mm3 (4.6-6.20); Red Cell Distribution Width 13.9 % (11.5-14.5); White Blood Count 9.8 K/mm3 (4.5-10.0)
[2021-12-05 07:07] LABS: Alanine Aminotransferase 49 U/L (6-50); Albumin Level 3.9 g/dL (3.5-5.1); Alkaline Phosphatase 93 U/L (38-126); Anion Gap 7 mmol/L (8-16); Aspartate Amino Transferase 31 U/L (17-59); Bilirubin,Total 0.2 mg/dL (0.2-1.3); Blood Urea Nitrogen 19 mg/dL (9-20); Calcium 9.4 mg/dL (8.4-10.2); Carbon Dioxide 23 mmol/L (22-30); Chloride 101 mmol/L (98-107); Estimated CRCL calculation 85 ml/min; Estimated Glomerular Filt Rate > 60; Glucose 268 mg/dL (65-110); Lactate Dehydrogenase 149 U/L (120-246); Magnesium 1.9 mg/dL (1.6-2.3); Potassium 4.2 mmol/L (3.4-5.0); Sodium 131 mmol/L (137-145)
[2021-12-05 07:35] LABS: Hemoglobin A1C 11.2 % (<5.7)
--- NOTE | 2021-12-05 08:59 | PM.PNCARD ---
Progress Note: A&P Assessment and Plan (1) Chest pain: Code(s): R07.9 - Chest pain, unspecified Status: Acute Assessment and Plan: Atypical. EKG and serial troponin are unremarkable. Could be related to covid infection. Obtain echo. If echo is unremarkable, may d/c home from cardiology standpoint and f/u with me in 2-3 weeks. (2) COVID-19: Code(s): U07.1 - COVID-19 Status: Acute Assessment and Plan: Management as per hospitalist. (3) Abdominal pain: Qualifiers: Abdominal location: generalized Qualified Code(s): R10.84 - Generalized abdominal pain Code(s): R10.9 - Unspecified abdominal pain Status: Acute Assessment and Plan: Probably related to chronic pancreatitis. (4) CAD (coronary artery disease), autologous vein bypass graft: Code(s): I25.810 - Atherosclerosis of coronary artery bypass graft(s) without angina pectoris Status: Acute Assessment and Plan: Stable. (5) Mixed hyperlipidemia: Code(s): E78.2 - Mixed hyperlipidemia Status: Acute Assessment and Plan: On Lovastatin. (6) Essential hypertension: Code(s): I10 - Essential (primary) hypertension Status: Acute Assessment and Plan: Stable. (7) Tobacco abuse: Code(s): Z72.0 - Tobacco use Status: Acute Assessment and Plan: Counseled regarding smoking cessation. Subjective Date/time seen: 12/05/21 08:59 Reports covid symptoms of fever/chills/headache/fatigue. States he has chronic pancreatitis and pain does radiate at time to chest. Exam Const: General: cooperative, healthy appearing and comfortable Resp: Auscultation: clear to auscultation bilaterally, no crackles, no rales, no rhonchi and no wheezes Cardio: Jugular venous distension: no JVD Rate: regular rate Rhythm: regular rhythm Heart sounds: no murmurs Peripheral pulses: dorsalis pedis present GI: GI Palp: Yes abdominal tenderness and Yes Soft to palpation Neuro: General: oriented to person, oriented to place and oriented to time Extrem: Right lower extremity: no edema Left lower extremity: no edema Objective Data Vital Signs Vital Signs: Vital Signs - 24 hr 12/04/21 09:54 12/04/21 09:00 12/04/21 09:01 Temperature Pulse Rate 78 80 82 Respiratory Rate 20 21 H 22 H Blood Pressure 120/67 Pulse Oximetry 97 96 Oxygen Delivery 12/04/21 09:15 12/04/21 09:16 12/04/21 09:30 Temperature Pulse Rate 82 82 79 Respiratory Rate 24 H 23 H 22 H Blood Pressure 124/74 Pulse Oximetry 95 95 96 Oxygen Delivery 12/04/21 09:31 12/04/21 09:45 12/04/21 09:46 Temperature Pulse Rate 80 79 81 Respiratory Rate 24 H 23 H 25 H Blood Pressure 121/72 125/73 Pulse Oximetry 96 97 97 Oxygen Delivery 12/04/21 10:00 12/04/21 10:01 12/04/21 10:15 Temperature Pulse Rate 79 82 78 Respiratory Rate 15 16 21 H Blood Pressure 149/91 H Pulse Oximetry 100 100 100 Oxygen Delivery 12/04/21 10:16 12/04/21 10:30 12/04/21 10:31 Temperature Pulse Rate 81 83 84 Respiratory Rate 21 H 28 H 29 H Blood Pressure 147/80 H 133/76 Pulse Oximetry 100 96 96 Oxygen Delivery 12/04/21 10:45 12/04/21 10:46 12/04/21 11:00 Temperature Pulse Rate 83 82 84 Respiratory Rate 26 H 27 H 27 H Blood Pressure 138/77 Pulse Oximetry 96 96 97 Oxygen Delivery 12/04/21 11:01 12/04/21 11:15 12/04/21 11:16 Temperature Pulse Rate 86 86 87 Respiratory Rate 26 H 28 H 28 H Blood Pressure 149/79 H 159/86 H Pulse Oximetry 97 96 97 Oxygen Delivery 12/04/21 11:30 12/04/21 11:30 12/04/21 11:45 Temperature 99.7 F H Pulse Rate 86 85 85 Respiratory Rate 30 H 28 H 24 H Blood Pressure 151/70 H 167/91 H Pulse Oximetry 99 100 97 Oxygen Delivery 12/04/21 12:15 12/04/21 16:00 12/04/21 16:54 Temperature 101.6 F H Pulse Rate 81 72 Respiratory Rate 20 Blood Pressure 154/86 H Pulse Oximetry 96 96 Oxygen
[2021-12-05 09:02] LABS: Thyroid Stimulating Hormone Reflex 0.651 uIU/mL (0.465-4.68)
[2021-12-05 09:03] LABS: Glucose Point of Care 248 mg/dl (65-105)
[2021-12-05] MEDS: INSULIN ASPART (*BKC) 100 UNITS/ML SUB-Q ×2 (09:12→11:52)
[2021-12-05] MEDS: LITHIUM CARBONATE 300 MG CAPSULE 600 MG PO ×2 (09:13→17:08)
[2021-12-05] MEDS: carvediloL 6.25 MG TABLET PO ×2 (09:14→20:31)
[2021-12-05] MEDS: ENALAPRIL MALEATE 5 MG TABLET PO (09:14)
[2021-12-05] MEDS: ISOSORBIDE MONONITRATE 30 MG TAB.ER.24H PO (09:14)
[2021-12-05] MEDS: SERTRALINE HCL 50 MG TABLET PO (09:14)
[2021-12-05] MEDS: ASPIRIN 81 MG CHEWABLE TABLET PO (09:14)
[2021-12-05] MEDS: REMDESIVIR 200 MG/NS 250 ML 200 MG/250 ML BAG 250 MG IVPB (09:17)
[2021-12-05] MEDS: ENOXAPARIN 40 MG/0.4 ML SYRINGE SUB-Q (09:24)
[2021-12-05 11:53] LABS: Glucose Point of Care 340 mg/dl (65-105)
--- NOTE | 2021-12-05 13:48 | PM.IMPN ---
Progress Note: A&P Assessment and Plan (1) COVID-19: Code(s): U07.1 - COVID-19 Status: Acute Assessment and Plan: -the patient remains in contact/droplet isolation. -the patient is on room air at this time. -the patient was started on Decadron -supportive care. -Robitussin -albuterol inhaler 12/05/2021 interval history: patient presented with chest was seen by Cardiology does not suspect acute coronary syndrome and no schema workup was recommended, patient is found to have a COVID ER started the patient on Decadron will add remdesivir for 3 days, patient continued to complain being feverish tired and fatigued, will have a PT OT evaluate the patient patient states he has is disabled at home and will let her return as soon as possible, will continue to monitor and further recommendation to follow (2) Diabetes: Code(s): E11.9 - Type 2 diabetes mellitus without complications Status: Acute Assessment and Plan: -Accu-Cheks AC and HS. -sliding scale insulin -check A1c -continue with Lantus (3) CAD (coronary artery disease), autologous vein bypass graft: Code(s): I25.810 - Atherosclerosis of coronary artery bypass graft(s) without angina pectoris Status: Acute Assessment and Plan: -the patient has a history of 6 vessel CABG -the patient had chest pain today but his cardiac enzymes were negative x3. -continue with Coreg -continue with aspirin (4) Chest pain: Code(s): R07.9 - Chest pain, unspecified Status: Acute Assessment and Plan: -cardiac enzymes were negative x3 -EKG remains the same as previously -echo was ordered. -cardiology has been consulted. -CT scan was negative for PE. The patient does have some pulmonary nodules which will need to be followed up outpatient. -continue with aspirin -continue with Coreg -he has a history of a 6 vessel CABG. (5) Depression: Code(s): F32.9 - Major depressive disorder, single episode, unspecified Status: Acute Assessment and Plan: -continue with lithium -continue with sertraline (6) Mixed hyperlipidemia: Code(s): E78.2 - Mixed hyperlipidemia Status: Acute Assessment and Plan: -continue with home treatment (7) Pancreatic cancer: Qualifiers: Pancreatic malignancy location: tail of pancreas Qualified Code(s): C25.2 - Malignant neoplasm of tail of pancreas Code(s): C25.9 - Malignant neoplasm of pancreas, unspecified Status: Acute Assessment and Plan: -the patient is on Zenpep which he may need to have his family bring in -he has had a Whipple procedure in the past. (8) Tobacco abuse: Code(s): Z72.0 - Tobacco use Status: Acute Assessment and Plan: -I spoke to the patient about smoking cessation for approximately 5 minutes and he stated that he wants to try to cold turkey and does not want a nicotine patch. Subjective Date/time seen: 12/05/21 13:48 HPI-Narrative: This is a 66-year-old male patient with a history of pancreatic cancer status post Whipple.? The patient stated that he woke up last night was having chest pain is described as a tightness.? His pain resolved with sublingual nitro.? His white count is 11.0.? H&H 13.3 and 40.1.? Blood sugar 237 and 252.? Cardiac enzymes are negative x3.? He has a history of a 6 vessel CABG.? He is diabetic and stop taking his NovoLog but takes a long-acting insulin instead.? Chest x-ray was read as no acute cardiopulmonary disease.? Chest abdomen pelvis CT was read as the following 1. No pulmonary embolism or other acute cardiopulmonary disease. 2. Mild to moderate emphysema with 4-5 mm right lower lobe pulmonary nodule. Optional follow-up chest CT could be considered at 12 months. His fever is 37.6.? The patient is being admitted to observation status on the date of service of 12/04/2021. 12/05/2021 interval history: patient presented with chest was seen by Cardiology does not joey
[2021-12-05 16:21] LABS: Glucose Point of Care 479 mg/dl (65-105)
[2021-12-05] MEDS: INSULIN GLARGINE (*BKC) 100 UNITS/ML 20 UNITS SUB-Q (17:05)
[2021-12-05] MEDS: INSULIN ASPART (*BKC) 100 UNITS/ML 8 UNITS SUB-Q (17:05)
[2021-12-05] MEDS: ACETAMINOPHEN 325 MG TABLET 650 MG PO (20:30)
[2021-12-05] MEDS: LOVASTATIN 20 MG TABLET PO (20:31)
[2021-12-05 20:59] LABS: Glucose Point of Care 353 mg/dl (65-105)
[2021-12-05] MEDS: INSULIN ASPART (*BKC) 100 UNITS/ML 6 UNITS SUB-Q (21:47)
[2021-12-05 23:38] LABS: Glucose Point of Care 270 mg/dl (65-105)
[2021-12-06] VITALS (9 sets, daily range): BP systolic 115–152; BP diastolic 65–85; PULSE 56–82; RESP 16–22; TEMP 36.5–36.9; O2SAT 95–97
[2021-12-06] MEDS: ONDANSETRON INJ 4 MG/2 ML VIAL IV PUSH (06:06)
[2021-12-06 06:33] LABS: Hematocrit 42.2 % (42.0-52.0); Hemoglobin 13.8 g/dL (14.0-18.0); Mean Corpuscular HGB Conc 32.7 g/dl (32-36); Mean Corpuscular Hemoglobin 31.7 pg (26-34); Mean Corpuscular Volume 96.8 fl (80-100); Mean Platelet Volume 10.6 fl (7.4-10.4); Platelet Count Result 284 k/mm3 (150-375); Red Blood Count 4.36 M/mm3 (4.6-6.20); Red Cell Distribution Width 13.5 % (11.5-14.5); White Blood Count 11.1 K/mm3 (4.5-10.0)
[2021-12-06 06:44] LABS: Alanine Aminotransferase 43 U/L (6-50); Albumin Level 3.8 g/dL (3.5-5.1); Alkaline Phosphatase 78 U/L (38-126); Anion Gap 11 mmol/L (8-16); Aspartate Amino Transferase 30 U/L (17-59); Bilirubin,Total 0.2 mg/dL (0.2-1.3); Blood Urea Nitrogen 21 mg/dL (9-20); Calcium 9.5 mg/dL (8.4-10.2); Carbon Dioxide 22 mmol/L (22-30); Chloride 102 mmol/L (98-107); Estimated CRCL calculation 85 ml/min; Estimated Glomerular Filt Rate > 60; Glucose 230 mg/dL (65-110); INR 1.1; Potassium 4.1 mmol/L (3.4-5.0); Prothrombin Time 13.4 Seconds (11.1-14.7); Sodium 135 mmol/L (137-145)
--- NOTE | 2021-12-06 07:46 | PM.PNCARD ---
Progress Note: A&P Assessment and Plan (1) Chest pain: Code(s): R07.9 - Chest pain, unspecified Status: Acute Assessment and Plan: Atypical. EKG and serial troponin are unremarkable. Could be related to covid infection. Echo on 12/04/21 shows EF 50-55%, RV dysfunction based on abnormal TAPSE, mild LAE, trace MRBrant [place] d/c home from cardiology standpoint and f/u with me in 2-3 weeks. (2) COVID-19: Code(s): U07.1 - COVID-19 Status: Acute Assessment and Plan: Management as per hospitalist. (3) Abdominal pain: Qualifiers: Abdominal location: generalized Qualified Code(s): R10.84 - Generalized abdominal pain Code(s): R10.9 - Unspecified abdominal pain Status: Acute Assessment and Plan: Probably related to chronic pancreatitis. (4) CAD (coronary artery disease), autologous vein bypass graft: Code(s): I25.810 - Atherosclerosis of coronary artery bypass graft(s) without angina pectoris Status: Acute Assessment and Plan: Stable. (5) Mixed hyperlipidemia: Code(s): E78.2 - Mixed hyperlipidemia Status: Acute Assessment and Plan: On Lovastatin. (6) Essential hypertension: Code(s): I10 - Essential (primary) hypertension Status: Acute Assessment and Plan: Stable. (7) Tobacco abuse: Code(s): Z72.0 - Tobacco use Status: Acute Assessment and Plan: Counseled regarding smoking cessation. Subjective Date/time seen: 12/06/21 07:46 Interval history: Reports some headache and nausea. Has chronic intermittent abdominal pain. No chest pain or sob. Exam Const: General: cooperative, healthy appearing and comfortable Resp: Auscultation: clear to auscultation bilaterally, no crackles, no rales, no rhonchi and no wheezes Cardio: Jugular venous distension: no JVD Rate: regular rate Rhythm: regular rhythm Heart sounds: no murmurs Peripheral pulses: dorsalis pedis present GI: GI Palp: Yes abdominal tenderness and Yes Soft to palpation Neuro: General: oriented to person, oriented to place and oriented to time Extrem: Right lower extremity: no edema Left lower extremity: no edema Objective Data Vital Signs Vital Signs: Vital Signs - 24 hr 12/05/21 09:14 12/05/21 08:00 12/05/21 09:10 Temperature 97.7 F Pulse Rate 80 73 Respiratory Rate 20 Blood Pressure 128/77 Pulse Oximetry 94 Oxygen Delivery Room Air 12/05/21 12:00 12/05/21 16:00 12/05/21 20:31 Temperature 99.1 F 97.7 F Pulse Rate 70 63 69 Respiratory Rate 22 H 22 H Blood Pressure 99/73 L 114/78 Pulse Oximetry 94 94 Oxygen Delivery 12/05/21 20:00 12/05/21 20:00 12/06/21 00:00 Temperature 97.8 F 97.9 F Pulse Rate 64 64 Respiratory Rate 22 H 21 H Blood Pressure 127/77 133/85 Pulse Oximetry 95 97 Oxygen Delivery Room Air Intake/Output Intake/Output: Intake & Output 12/03/21 12/04/21 12/05/21 12/06/21 23:59 23:59 23:59 23:59 Intake Total 1220 1880 Output Total 1600 2200 Balance -380 -320 Meds/Results Medications: Active Medications Generic Name Dose Route Start Last Admin Trade Name Freq PRN Reason Stop Dose Admin Acetaminophen 650 mg 12/04/21 18:04 12/05/21 20:30 Acetaminophen 325 Mg Tablet PO 650 mg Q4H PRN Administration Mild Pain (1-3) or Fever Albuterol 2 puff 12/04/21 12:41 Albuterol Sulfate (*Sp) Aerosol 1 Puff INHALATION Q6HRT PRN Shortness Of Breath Alprazolam 0.25 mg 12/04/21 14:29 Alprazolam (*Crx) 0.25 Mg Tablet PO DAILY PRN anxiety Aspirin 81 mg 12/04/21 08:00 12/05/21 09:14 Aspirin 81 Mg Chewable Tablet PO 81 mg DAILY@0800 CHAYO Administration Carvedilol 6.25 mg 12/04/21 17:00 12/05/21 20:31 Carvedilol 6.25 Mg Tablet PO 6.25 mg Q12HR CHAYO Administration Dexamethasone Sodium Phosphate 6 mg 12/05/21 09:00 12/05/21 09:13 Dexamethasone Sod Phos Inj 10 Mg/Ml 1 Ml Vial IV
[2021-12-06 08:23] LABS: Glucose Point of Care 296 mg/dl (65-105)
[2021-12-06] MEDS: INSULIN ASPART (*BKC) 100 UNITS/ML SUB-Q ×2 (08:48→16:52)
[2021-12-06] MEDS: ASPIRIN 81 MG CHEWABLE TABLET PO (08:49)
[2021-12-06] MEDS: ENOXAPARIN 40 MG/0.4 ML SYRINGE SUB-Q (08:49)
[2021-12-06] MEDS: carvediloL 6.25 MG TABLET PO ×2 (08:50→21:39)
[2021-12-06] MEDS: SERTRALINE HCL 50 MG TABLET PO (08:50)
[2021-12-06] MEDS: LITHIUM CARBONATE 300 MG CAPSULE 600 MG PO ×2 (08:50→16:55)
[2021-12-06] MEDS: ISOSORBIDE MONONITRATE 30 MG TAB.ER.24H PO (08:50)
[2021-12-06] MEDS: ENALAPRIL MALEATE 5 MG TABLET PO (08:50)
[2021-12-06 09:00] LABS: Glucose Point of Care 222 mg/dl (65-105)
[2021-12-06] MEDS: REMDESIVIR 100 MG/NS 250 ML 100 MG/250 ML BAG 250 MG IVPB (09:33)
[2021-12-06] MEDS: INSULIN ASPART (*BKC) 100 UNITS/ML 8 UNITS SUB-Q (12:01)
[2021-12-06] MEDS: INSULIN GLARGINE (*BKC) 100 UNITS/ML 20 UNITS SUB-Q ×2 (12:01→16:57)
[2021-12-06 12:04] LABS: Glucose Point of Care 450 mg/dl (65-105)
--- NOTE | 2021-12-06 13:48 | PM.IMPN ---
Progress Note: A&P Assessment and Plan (1) COVID-19: Code(s): U07.1 - COVID-19 Status: Acute Assessment and Plan: -the patient remains in contact/droplet isolation. -the patient is on room air at this time. -the patient was started on Decadron -supportive care. 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 -sliding scale insulin -check A1c -continue with Lantus (3) CAD (coronary artery disease), autologous vein bypass graft: Code(s): I25.810 - Atherosclerosis of coronary artery bypass graft(s) without angina pectoris Status: Acute Assessment and Plan: -the patient has a history of 6 vessel CABG -the patient had chest pain today but his cardiac enzymes were negative x3. -continue with Coreg -continue with aspirin (4) Chest pain: Code(s): R07.9 - Chest pain, unspecified Status: Acute Assessment and Plan: -cardiac enzymes were negative x3 -EKG remains the same as previously -echo was ordered. -cardiology has been consulted. -CT scan was negative for PE. The patient does have some pulmonary nodules which will need to be followed up outpatient. -continue with aspirin -continue with Coreg -he has a history of a 6 vessel CABG. (5) Depression: Code(s): F32.9 - Major depressive disorder, single episode, unspecified Status: Acute Assessment and Plan: -continue with lithium -continue with sertraline (6) Mixed hyperlipidemia: Code(s): E78.2 - Mixed hyperlipidemia Status: Acute Assessment and Plan: -continue with home treatment (7) Pancreatic cancer: Qualifiers: Pancreatic malignancy location: tail of pancreas Qualified Code(s): C25.2 - Malignant neoplasm of tail of pancreas Code(s): C25.9 - Malignant neoplasm of pancreas, unspecified Status: Acute Assessment and Plan: -the patient is on Zenpep which he may need to have his family bring in -he has had a Whipple procedure in the past. (8) Tobacco abuse: Code(s): Z72.0 - Tobacco use Status: Acute Assessment and Plan: -I spoke to the patient about smoking cessation for approximately 5 minutes and he stated that he wants to try to cold turkey and does not want a nicotine patch. 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 Objective Data Vital Signs Vital Signs: Vital Signs - 24 hr 12/05/21 16:00 12/05/21 20:31 12/05/21 20:00 Temperature 97.7 F Pulse Rate 63 69 R
[2021-12-06 16:54] LABS: Glucose Point of Care 327 mg/dl (65-105)
[2021-12-06] MEDS: LOVASTATIN 20 MG TABLET PO (21:39)
[2021-12-06 21:47] LABS: Glucose Point of Care 280 mg/dl (65-105)
[2021-12-07] VITALS: BP 148/94; PULSE 63; RESP 16; TEMP 36.3; O2SAT 98
--- NOTE | 2021-12-07 01:20 | PC.NURSE ---
Pt resting in bed. Pt had elevated blood sugar. Provider notified. No treatment required. No complaints at this time. Will continue to monitor pt.
[2021-12-07] MEDS: ONDANSETRON INJ 4 MG/2 ML VIAL IV PUSH (01:31)
[2021-12-07 03:10] VITALS: BP 134/89; PULSE 63; RESP 20; TEMP 37.1; O2SAT 100
[2021-12-07 07:09] LABS: Hematocrit 42.2 % (42.0-52.0); Hemoglobin 13.8 g/dL (14.0-18.0); Mean Corpuscular HGB Conc 32.7 g/dl (32-36); Mean Corpuscular Hemoglobin 31.6 pg (26-34); Mean Corpuscular Volume 96.6 fl (80-100); Mean Platelet Volume 10.7 fl (7.4-10.4); Platelet Count Result 330 k/mm3 (150-375); Red Blood Count 4.37 M/mm3 (4.6-6.20); Red Cell Distribution Width 13.5 % (11.5-14.5); White Blood Count 15.1 K/mm3 (4.5-10.0)
[2021-12-07 07:23] LABS: Alanine Aminotransferase 55 U/L (6-50); Albumin Level 3.8 g/dL (3.5-5.1); Alkaline Phosphatase 73 U/L (38-126); Anion Gap 13 mmol/L (8-16); Aspartate Amino Transferase 37 U/L (17-59); Bilirubin,Total 0.1 mg/dL (0.2-1.3); Blood Urea Nitrogen 18 mg/dL (9-20); Calcium 9.9 mg/dL (8.4-10.2); Carbon Dioxide 25 mmol/L (22-30); Chloride 101 mmol/L (98-107); Estimated CRCL calculation 85 ml/min; Estimated Glomerular Filt Rate > 60; Glucose 149 mg/dL (65-110); Potassium 3.8 mmol/L (3.4-5.0); Sodium 139 mmol/L (137-145)
[2021-12-07 08:00] VITALS: BP 139/77; PULSE 58; PULSE 63; RESP 26; TEMP 36.7; O2SAT 98
[2021-12-07 08:46] LABS: Glucose Point of Care 133 mg/dl (65-105)
[2021-12-07 10:19] VITALS: PULSE 63
[2021-12-07] MEDS: carvediloL 6.25 MG TABLET PO (10:19)
[2021-12-07] MEDS: ENALAPRIL MALEATE 5 MG TABLET PO (10:19)
[2021-12-07] MEDS: SERTRALINE HCL 50 MG TABLET PO (10:20)
[2021-12-07] MEDS: ENOXAPARIN 40 MG/0.4 ML SYRINGE SUB-Q (10:20)
[2021-12-07] MEDS: ISOSORBIDE MONONITRATE 30 MG TAB.ER.24H PO (10:20)
[2021-12-07] MEDS: ASPIRIN 81 MG CHEWABLE TABLET PO (10:20)
[2021-12-07] MEDS: LITHIUM CARBONATE 300 MG CAPSULE 600 MG PO (10:20)
[2021-12-07] MEDS: REMDESIVIR 100 MG/NS 250 ML 100 MG/250 ML BAG 250 MG IVPB (10:26)
[2021-12-07] MEDS: INSULIN ASPART (*BKC) 100 UNITS/ML SUB-Q (11:40)
[2021-12-07 11:41] LABS: Glucose Point of Care 355 mg/dl (65-105)
[2021-12-07 12:00] VITALS: BP 135/86; PULSE 58; RESP 20; TEMP 36.9; O2SAT 98
--- NOTE | 2021-12-19 17:43 | PM.DS ---
DS: Admitting Diagnosis Discharge Date 12/07/21 Admitting Diagnosis COVID-19 DS: Discharge Diagnosis Discharge Diagnosis (1) COVID-19: Code(s): U07.1 - COVID-19 Status: Acute Assessment and Plan: -the patient remains in contact/droplet isolation. -the patient is on room air at this time. -the patient was started on Decadron -supportive care. 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 -sliding scale insulin -check A1c -continue with Lantus (3) CAD (coronary artery disease), autologous vein bypass graft: Code(s): I25.810 - Atherosclerosis of coronary artery bypass graft(s) without angina pectoris Status: Acute Assessment and Plan: -the patient has a history of 6 vessel CABG -the patient had chest pain today but his cardiac enzymes were negative x3. -continue with Coreg -continue with aspirin (4) Chest pain: Code(s): R07.9 - Chest pain, unspecified Status: Acute Assessment and Plan: -cardiac enzymes were negative x3 -EKG remains the same as previously -echo was ordered. -cardiology has been consulted. -CT scan was negative for PE. The patient does have some pulmonary nodules which will need to be followed up outpatient. -continue with aspirin -continue with Coreg -he has a history of a 6 vessel CABG. (5) Depression: Code(s): F32.9 - Major depressive disorder, single episode, unspecified Status: Acute Assessment and Plan: -continue with lithium -continue with sertraline (6) Mixed hyperlipidemia: Code(s): E78.2 - Mixed hyperlipidemia Status: Acute Assessment and Plan: -continue with home treatment (7) Pancreatic cancer: Qualifiers: Pancreatic malignancy location: tail of pancreas Qualified Code(s): C25.2 - Malignant neoplasm of tail of pancreas Code(s): C25.9 - Malignant neoplasm of pancreas, unspecified Status: Acute Assessment and Plan: -the patient is on Zenpep which he may need to have his family bring in -he has had a Whipple procedure in the past. (8) Tobacco abuse: Code(s): Z72.0 - Tobacco use Status: Acute Assessment and Plan: -I spoke to the patient about smoking cessation for approximately 5 minutes and he stated that he wants to try to cold turkey and does not want a nicotine patch. DS: Summary Hospital Course Reason for hospitalization: Chest pain Narrative: This is a 66-year-old male patient with a history of pancreatic cancer status post Whipple.? The patient stated that he woke up last night was having chest pain is described as a tightness.? His pain resolved with sublingual nitro.? His white count is 11.0.? H&H 13.3 and 40.1.? Blood sugar 237 and 252.? Cardiac enzymes are negative x3.? He has a history of a 6 vessel CABG.? He is diabetic and stop taking his NovoLog but takes a long-acting insulin instead.? Chest x-ray was read as no acute cardiopulmonary disease.? Chest abdomen pelvis CT was read as the following 1. No pulmonary embolism or other acute cardiopulmonary disease. 2. Mild to moderate emphysema with 4-5 mm right lower lobe pulmonary nodule. Optional follow-up chest CT could be considered at 12 months. 3. Prostatomegaly. His fever is 37.6.? The patient is being admitted to observation status on the date of service of
== END 2021-12-07 13:15 | disposition home or self-care (01) ==
LOC: ANHED 07:47 → ANHIMU 10:16 → ANH3MEDSUR 10:43
PROVIDERS: Nurse Practitioner; Admitting Provider Family Medicine; Emergency Provider Emergency Medicine; PCP Family Medicine; Visit Provider Family Medicine
DX: U07.1 COVID-19 (principal); E11.9 Type 2 diabetes mellitus without complications; I25.810 Atherosclerosis of coronary artery bypass graft(s) without angina pectoris; R07.9 Chest pain, unspecified; F32.9 Major depressive disorder, single episode, unspecified; E78.2 Mixed hyperlipidemia; R10.84 Generalized abdominal pain; C25.2 Malignant neoplasm of tail of pancreas; F17.210 Nicotine dependence, cigarettes, uncomplicated; I42.2 Other hypertrophic cardiomyopathy; Z95.1 Presence of aortocoronary bypass graft; I11.0 Hypertensive heart disease with heart failure; I50.30 Unspecified diastolic (congestive) heart failure; F41.9 Anxiety disorder, unspecified; J43.9 Emphysema, unspecified; K86.1 Other chronic pancreatitis; R91.1 Solitary pulmonary nodule; Z85.07 Personal history of malignant neoplasm of pancreas; N40.0 Benign prostatic hyperplasia without lower urinary tract symptoms; Z90.81 Acquired absence of spleen; Z90.410 Acquired total absence of pancreas; Z86.16 Personal history of COVID-19; Z82.49 Family history of ischemic heart disease and other diseases of the circulatory system; Z79.4 Long term (current) use of insulin; Z79.899 Other long term (current) drug therapy
CPT/HCPCS: 36415; 71045; 71275; 74177; 80053; 81001; 82728; 82948; 83036; 83615; 83690; 83735; 83880; 84443; 84484; 85025; 85027; 85610; 85730; 87502; 93005; 93306; 94640; 96365; 96366; 96372; 96375; 96376; 99285; A9270; C9803; G0378; J0131; J0248; J1100; J1650; J1815; J2270; J2405; Q9967; U0003; U0005

== ENCOUNTER → 2022-03-04 16:01 | Outpatient (CLI) | payer MEDICARE, MEDICAID, SELFPAY ==
--- NOTE | ~2022-03-04 | XR_ITS ---
AP view of the pelvis and AP and lateral views of the right hip Clinical history: Pain COMPARISON: 02/07/2020 Findings: No acute fracture or dislocation is seen. Osseous alignment is anatomic. Bilateral hip and SI joint spaces are preserved. Soft tissues are unremarkable. Impression: No significant abnormality is seen. Reviewed, dictated and finalized at location [] TER PLUMBING Impression: No significant abnormality is seen.
== END ==
PROVIDERS: PCP Family Medicine; Visit Provider Family Medicine
DX: M25.551 Pain in right hip (principal); W19.XXXA Unspecified fall, initial encounter
CPT/HCPCS: 73502

== ENCOUNTER 2022-04-29 15:30 | Outpatient (RCR) | payer MEDICARE, MEDICAID, SELFPAY ==
--- NOTE | 2022-04-01 15:19 | PTOPEVAL1 ---
Assessment and note entered by Mayela John, PT, DPT Evaluation Information Assessment Status Evaluation Diagnosis low back and hip pain Onset 1 month Subjective Information Pt states he thinks he has a pinched nerve. He states he has pain in his back, hip, and pain down to his knee. He states he tore his 3rd and 4th nerve from his back 25 years ago. He states he has neuropathy. He states he fell about a month ago, this is when the hip and knee pain started. He states he falls because of his pain and his balance. He reports maybe 3-4 falls in the last 6 months. 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 He reports his low back and knee pain as a 7/10 at the lowest, and 10/10 at the highest. Reported Pain Level Pain Score 7,10: Self Report Assessment PT Clinical Summary Vic is a very deconditioned 66 y/o male who presents to therapy today for his initial evaluation with a diagnosis of hip pain and lumbar sonolysis. He demonstrates very decreased strength which on the R side is limited by pain. He demonstrates decreased active trunk ROM this is also limited by pain, he demonstrates 2 large LOB requiring manual assist to maintain balance. He ambulated at a decreased gait speed with significant gait deviations. Skilled physical therapy services are indicated to address the deficits noted above, to improve strength and ROM, to manage pain, and to improve overall functional mobility. Plan of Care Interventions Electrical Stimulation,Gait Training,Hot Pack/Cold Pack,Manual Therapy,Neuro Re-education,Patient/ Caregiver Educati,Therapeutic Activities, Therapeutic Exercise PT Services Indicated Yes Treatment Frequency and 2x/wk for 4 wks Duration These treatments will address the objective and functional deficits as defined above. The patient will be advanced safely and appropriately in order for the patient to progress towards his/her prior level of function. Additional exercises will be introduced and as well as a comprehensive home exercise program upon discharge, if needed, ?to ensure carryover of functional gains achieved in the clinic. This treatment plan has been reviewed and agreement upon by the patient.
--- NOTE | 2022-04-14 09:33 | PCPTNOTE ---
Patient called to cancel appointment due to illness.
--- NOTE | 2022-04-23 15:07 | PCPTNOTE ---
Patient called to cancel this date due to illness.
--- NOTE | 2022-04-29 16:37 | PTOPDC ---
Assessment and note entered by Mayela John, PT, DPT Evaluation Information Assessment Status Discharge Diagnosis low back and hip pain Onset 1 month Subjective Information Pt states if he moves slow he feels okay but he feels off steady if he moves too quickly. Pt reports no time to complete his exercises at home. He states his exercise is doing household work. Pt states he has noticed some improvement in his low back pain. He reports 20% improvement in his symptoms. Pt reports his most recent fall was earlier this week. Reported Pain Level Pain Score 5,3: Self Report Assessment PT Clinical Summary Jermain presents to therapy today for his progress report following 5 visits of skilled therapy to treat his low back and hip pain. Today he reports poor compliance d/t personal stressors. He improved his Tinetti score from 02/15 to and improved his 5xSTS from 34s with UEs to 28s w/o UEs, both of these measures place him at an increased risk for falls. Pt was extensively educated on the benefits of continued exercise and movement to maintain and to further progress his strength and mobility. Pt agreeable with this POC. He will be discharged from skilled physical therapy services at this time with instructions to continue his HEP and to follow up with referring provider if needed. Plan of Care PT Services Indicated No Treatment Frequency and to be discharged Duration
== END 2022-04-30 10:12 | disposition home or self-care (01) ==
LOC: ANHGOSHPT 15:30
PROVIDERS: PCP Family Medicine; Visit Provider Nurse Practitioner Family
DX: M47.816 Spondylosis without myelopathy or radiculopathy, lumbar region (principal); M25.559 Pain in unspecified hip
CPT/HCPCS: 97110; 97112; 97140; 97161; 97530

== ENCOUNTER 2023-12-02 08:12 | Outpatient (CLI) | payer MEDICARE, SELFPAY ==
[2023-12-02 08:31] LABS: Basophils Absolute Auto 0.1 K/mm3 (0.0-0.1); Basophils Percent Auto 1.1 % (0.2-1.2); Eosinophils Absolute Auto 0.4 K/mm3 (0-0.3); Eosinophils Percent Auto 4.4 % (0-4.4); Hematocrit 46.5 % (42.0-52.0); Hemoglobin 15.3 g/dL (14.0-18.0); Immature Granulocyte Absolute 0.01 K/mm3 (0.00-0.031); Immature Granulocyte Percent A 0.1 % (0-0.5); Lymphocytes Absolute Auto 2.16 K/mm3 (0.9-3.2); Lymphocytes Percent Auto 24.5 % (18.3-44.2); Mean Corpuscular HGB Conc 32.9 g/dl (32-36); Mean Corpuscular Hemoglobin 32.1 pg (26-34); Mean Corpuscular Volume 97.7 fl (80-100); Mean Platelet Volume 10.2 fl (7.4-10.4); Monocytes Absolute Auto 0.7 K/mm3 (0.1-0.6); Monocytes Percent Auto 7.7 % (2.6-8.5); Neutrophils Absolute Auto 5.5 K/mm3 (1.3-6.7); Neutrophils Percent Auto 62.2 % (45.5-73.1); Platelet Count Result 304 k/mm3 (150-375); Red Blood Count 4.76 M/mm3 (4.6-6.20); Red Cell Distribution Width 14.4 % (11.5-14.5); White Blood Count 8.8 K/mm3 (4.5-10.0)
[2023-12-02 08:51] LABS: Alanine Aminotransferase 32 U/L (6-50); Albumin Level 4.4 g/dL (3.5-5.1); Alkaline Phosphatase 102 U/L (38-126); Anion Gap 9 mmol/L (4-12); Aspartate Amino Transferase 24 U/L (17-59); Bilirubin,Total 0.4 mg/dL (0.2-1.3); Blood Urea Nitrogen 35 mg/dL (9-20); Calcium 9.7 mg/dL (8.4-10.2); Carbon Dioxide 27 mmol/L (22-30); Chloride 103 mmol/L (98-107); Cholesterol 160 mg/dL (0-200); Estimated Glomerular Filt Rate > 60; Glucose 275 mg/dL (65-110); HDL Direct 51 mg/dL; Potassium 4.4 mmol/L (3.4-5.0); Sodium 139 mmol/L (137-145); Triglycerides 107 mg/dL (<150)
[2023-12-02 09:01] LABS: LDL Cholesterol Direct 87 mg/dL
[2023-12-02 09:20] LABS: Prostate Specific Antigen 2.8 ng/mL (< OR = 4.0)
[2023-12-02 10:17] LABS: Creatinine Urine 32.3 mg/dL
[2023-12-02 10:20] LABS: MALB Creatinine Ratio 101.9 mg/g (0-30); Microalbumin Urine Random 32.9 mg/L (0-16.7)
== END 2023-12-02 08:13 | disposition home or self-care (01) ==
LOC: ANHLAB 08:16
PROVIDERS: PCP Family Medicine; Visit Provider Family Medicine
DX: E78.2 Mixed hyperlipidemia (principal); Z13.220 Encounter for screening for lipoid disorders; Z12.5 Encounter for screening for malignant neoplasm of prostate; I11.9 Hypertensive heart disease without heart failure; E11.65 Type 2 diabetes mellitus with hyperglycemia
CPT/HCPCS: 36415; 80048; 80061; 80076; 82043; 84153; 84443; 85025; G0103

== ENCOUNTER 2024-03-06 14:50 | Outpatient (CLI) | payer MEDICARE, SELFPAY ==
--- NOTE | ~2024-03-06 | XR_ITS ---
XR hip BI 2V w AP pelvis Ordering provider: Laron Matos MD History: . No injury bilateral hip pain . Comparison: None. FINDINGS: BONES: No acute fracture or dislocation. Lucency is projected over the right femoral head which is most likely artifactual. HIP JOINT SPACES: Bilateral mild to moderate osteoarthritic changes. SACROILIAC JOINT SPACES/LUMBAR SPINE: The sacroiliac joint spaces shows left sacroiliitis. Mild degen erative changes of the visualized lower lumbar spine. PUBIC SYMPHYSIS: Normal. SOFT TISSUES: Normal. IMPRESSION: No acute osseous abnormality of the bilateral hips and pelvis. Bilateral hip mild to moderate osteoarthritic changes. Reviewed, dictated and finalized at location [facility]. [facility]
== END 2024-03-06 14:51 | disposition home or self-care (01) ==
PROVIDERS: PCP Family Medicine; Visit Provider Family Medicine
DX: M16.11 Unilateral primary osteoarthritis, right hip (principal); M25.552 Pain in left hip; M25.551 Pain in right hip
CPT/HCPCS: 73521

== ENCOUNTER 2024-05-28 15:17 | Inpatient (IN) | payer MEDICARE, MEDICAID, SELFPAY ==
[2024-05-28] VITALS (15 sets, daily range): BP systolic 103–133; BP diastolic 55–80; PULSE 65–79; RESP 14–20; TEMP 36.6–36.8; O2SAT 94–98; BMI 21.4
--- NOTE | ~2024-05-28 | XR_ITS ---
Portable chest x-ray Comparison: 12/04/2021 Clinical History: Chest pain Findings: Lungs are clear, without focal consolidation or pleural effusion. Cardiomediastinal silho uette is stable. Bones and soft tissues are unremarkable. Impression: Clear lungs. Reviewed, dictated and finalized at location . Impression: Clear lungs.
--- NOTE | ~2024-05-28 | XR_ITS ---
EXAM: XR abdomen/kub 1V DATE: 05/28/2024 18:19 HISTORY: vomiting . COMPARISON: Obstruction series 07/25/2003, images only; CT cap 12/04/2021. FINDINGS: Mildly distended air-filled stomach. Paucity of small bowel gas. Normal large bowel gas pa ttern. Partially visualized sternotomy wires. Excreted contrast in the bilateral collecting systems a nd urinary bladder. Focal outpouching along the left lateral aspect of the bladder may represent a ur eterocele. No organomegaly. Degenerative changes in the spine and bilateral hips. IMPRESSION: Mild gastric distention. Paucity of small bowel gas. No overt signs of free air, ileus or obstruction. Contrast excretion presumably from outside imaging studies. Possible bladder ureterocel e. Reviewed, dictated and finalized at location K. IMPRESSION: Mild gastric distention. Paucity of small bowel gas. No overt signs of free air, ileus or obstruction. Contrast excretion presumably from outside imaging studies. Possible bladder ureterocele.
--- NOTE | 2024-05-28 15:18 | ECG_ITS ---
Test Date: 2024-05-28 15:18:03 Measurements Intervals [place] Rate: 75 P: 73 NM: 182 QRS: 68 QRSD: 98 T: 67 QT: 386 QTc: 433 Interpretive Statements SINUS RHYTHM NONSPECIFIC ST AND T-WAVE ABNORMALITY No previous ECG available for comparison Electronically Signed On 05-29-2024 14:30:15 CDT by Fahad Crews M.D.
--- NOTE | 2024-05-28 15:28 | ED_ITS ---
HPI - Chest Pain General Chief Complaint: Chest Pain Stated Complaint: STEMI Time Seen by Provider: 05/28/24 15:23 History of Present Illness HPI narrative: Pt has hx of cabg several years ago and AL. Pt had some CP last night which resolved with rest. Today about 90 minutes ago pt was outside doing some yard work and developed substernal CP without radiation with SOB. Pt rested for an hour and it did not resolve so he called 911. Pt got asa and nitro sl x 2 and nitro paste. Pains still 07/28. Pt says it feels like his AL in the past. Related Data Home Medications ?Medication ?Instructions ?Recorded ?Confirmed ?Last Taken ?Type acetaminophen 500 mg tablet 500 mg PO Q6H 03/04/22 03/05/24 Unknown History Allergies Allergy/AdvReac Type Severity Reaction Status Date / Time ciprofloxacin (From Cipro) Allergy Mild Rash Verified 05/28/24 15:23 Sulfa (Sulfonamide Allergy Mild rash Verified 05/28/24 15:23 Antibiotics) codeine AdvReac Mild nausea Verified 05/28/24 15:23 Review of Systems 2 Review of Systems: All systems reviewed & are unremarkable except as noted in HPI and below PMFSH Past Medical History Medical History Diabetes mellitus with microalbuminuria Diabetes mellitus with hyperglycemia BMI (body mass index) 20.0-29.9 Diabetes Chronic pancreatitis COVID Diabetes type 2, controlled BMI 21.0-21.9, adult Pancreatic cancer Colonoscopy planned Bowel habit changes Weight loss Anxiety Bipolar disorder, unspecified Essential hypertension Mixed hyperlipidemia Old AL (myocardial infarction) Surgical History Surgical History H/O Whipple procedure History of splenectomy History of pancreatectomy History of endoscopy S/P CABG (coronary artery bypass graft) 6 vessel Family History Family History Father Hypertension Cerebrovascular accident Family history of coronary artery disease Family history of cardiovascular disease CHF (congestive heart failure) Mother Family history of diabetes mellitus in first degree relative CHF (congestive heart failure) Diabetes mellitus Sibling Diabetes mellitus Kidney failure Sibling Hypertension Blindness and low vision Other Family history of malignant neoplasm Social History Social History Social History: He lives with his and is raising his grandson. He has 4 children. 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 He still continues to smoke a pack a cigarettes a day. He denies any alcohol marijuana or illicit drugs. 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 Code status full code Smoking packs per day: 1 Smoking cigarettes per day: 20.0 Years smoked: 51 Smoking pack-years: 51.00 Smoking status: Current every day smoker Tobacco type: cigarettes Second hand tobacco smoke exposure: Yes Alcohol intake: never Substance use: never Substance use type: does not use Do You Feel Safe in your Home?: Yes Lack of Transportation: No Lack of Food: Never True Current Housing: I Have Housing Concerned About Future Housing: No Difficulty Paying Gas/Electric Bills: No Difficulty Paying for Meds: No Currently Unemployed: No Education: Grade School Difficulty w/ Childcare or Family Care: No Living arrangements: with family Occupation/Education: 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 Gender identity (if verbalized by the patient): Male Spiritual care concerns: No Exam 2 Const: General: healthy appearing and no acute distress Nutritional Appearance: well nourished Orientation/consciousness: patient oriented x3 Limitations: no limitations Chest: Chest palpation & inspection: normal inspection of the chest Resp: Effort & Inspection: normal respiratory effort Auscultation: clear to auscultation bilaterally Cardio: Rate: regular rate Rhythm: regular rhythm GI: Auscultation: normal bowel sounds Skin: General skin exam: normal color Rashes: no rashes Wounds: no wounds Neuro: General: patient oriented x3, moves all extremities, no meningeal signs, no focal motor deficits and CN's II-XI intact bilaterally Cranial nerves: Yes Nystagmus not present Speech: normal speech Extrem: General: normal to inspection and no clubbing, cyanosis or edema Psych: Mental Status: mental status grossly normal Affect: normal affect Attitude: cooperative Course Vital Signs Vital signs: Vital Signs Temperature 97.9 F 05/28/24 15:09 Pulse Rate 77 05/28/24 15:09 Respiratory Rate 14 05/28/24 15:09 Blood Pressure 103/68 05/28/24 15:09 Pulse Oximetry 96 05/28/24 15:09 Oxygen Delivery Room Air 05/28/24 15:09 Temperature 97.9 F 05/28/24 15:09 Pulse Rate 66 05/28/24 17:05 Respiratory Rate 14 05/28/24 17:05 Blood Pressure 122/66 05/28/24 17:05 Pulse Oximetry 98 05/28/24 17:05 Oxygen Delivery Room Air 05/28/24 17:05 MDM - Chest Pain MDM Narrative Medical decision making narrative: Pt has some mild st elevation in v1-v3 similar to prio. Dr Frost here and evaluating pt. will take to electrical laboratory technician. Lab Data 05/28/24 15:30 05/28/24 15:30 Labs: Lab Results 05/28/24 05/28/24 Range/Units 15:30 15:30 WBC 13.1 H (4.5-10.0) K/mm3 RBC 4.39 L (4.6-6.20) M/mm3 Hgb 14.0 (14.0-18.0) g/dL Hct 42.5 (42.0-52.0) % MCV 96.8 (80-100) fl MCH 31.9 (26-34) pg MCHC 32.9 (32-36) g/dl RDW 14.5 (11.5-14.5) % Plt Count 319 (150-375) k/mm3 MPV 10.7 H (7.4-10.4) fl Immature Gran % (Auto) 0.5 (0-0.5) % Neut % (Auto) 59.8 (45.5-73.1) % Lymph % (Auto) 26.6 (18.3-44.2) % Ralls % (Auto) 8.8 H (2.6-8.5) % Eos % (Auto) 3.4 (0-4.4) % Baso % (Auto) 0.9 (0.2-1.2) % Lymph # (Auto) 3.49 H (0.9-3.2) K/mm3 Ralls # (Auto) 1.2 H (0.1-0.6) K/mm3 Eos # (Auto) 0.5 H (0-0.3) K/mm3 Baso # (Auto) 0.1 (0.0-0.1) K/mm3 Abs Immat Gran (auto) 0.06 H (0.00-0.031) K/mm3 Absolute Neuts (auto) 7.9 H (1.3-6.7) K/mm3 Absolute Nucleated RBC 0.000 (0.0-0.012) K/mm3 Nucleated RBC % 0.0 (0.0-0.2) % PT 13.9 (11.1-14.7) Seconds INR 1.0 APTT 26.2 (22.3-36.8) Seconds Sodium 136 L (137-145) mmol/L Potassium 5.2 H (3.4-5.0) mmol/L Chloride 101 (98-107) mmol/L Carbon Dioxide 24 (22-30) mmol/L Anion Gap 11 (4-12) mmol/L BUN 30 H (9-20) mg/dL Creatinine 0.99 (0.7-1.3) mg/dL Estim Creat Clear Calc 61 ml/min Estimated GFR > 60 (59 - ) Glucose 118 H (65-110) mg/dL Calcium 10.3 H (8.4-10.2) mg/dL Total Bilirubin 0.5 (0.2-1.3) mg/dL AST 31 (17-59) U/L ALT 45 (6-50) U/L Alkaline Phosphatase 71 (38-126) U/L Troponin I < 0.012 Cancelled (0.000-0.034) ng/mL NT-Pro-B Natriuret Pep 200 H (19.9-100) pg/mL Total Protein 8.0 (6.3-8.2) g/dL Albumin 4.4 (3.5-5.1) g/dL Lipase 25 (23-300) U/L Critical Care Time Critical Care Time Critical Care Time: Yes Total Critical Care Time: 30 Discharge Plan Discharge Clinical Impression: Angina pectoris, unstable Patient Disposition: Still a Patient Condition: Critical
[2024-05-28] MEDS: MORPHINE SULFATE (*CRX) 2 MG/ML INJ IV PUSH (15:31)
--- NOTE | 2024-05-28 15:45 | PM.IMHP ---
H&P: HPI History of Present Illness Date/Time: 05/28/24 15:45 Chief Complaint: CHEST PAIN Narrative: 68-YEAR-OLD MAN WITH CAD STATUS POST CABG (PICKARD TO LAD, SVG TO PDA, SVG SEQUENTIAL OM2 AND OM3, SVG TO DIAGONAL) and multiple PCIs, diabetes type 2, pancreatic excision due to cancer (2020), and active smoker presents with chest pain while moving wood to a pile. This started about 2-3 hours ago prompting him to come to the emergency room as it did not resolve and became more severe. This was associated with shortness of breath. He continues to have both chest pain and shortness of breath. No recent bleeding. He has not followed with Cardiology for some. 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 He is not on any aspirin. No recent bleeding. Review of Systems Review of Systems: All systems reviewed & are unremarkable except as noted in HPI and below PMFSH Past Medical History Medical History Diabetes mellitus with microalbuminuria Diabetes mellitus with hyperglycemia BMI (body mass index) 20.0-29.9 Diabetes Chronic pancreatitis COVID Diabetes type 2, controlled BMI 21.0-21.9, adult Pancreatic cancer Colonoscopy planned Bowel habit changes Weight loss Anxiety Bipolar disorder, unspecified Essential hypertension Mixed hyperlipidemia [facility] (myocardial infarction) Surgical History Surgical History H/O Whipple procedure History of splenectomy History of pancreatectomy History of endoscopy S/P CABG (coronary artery bypass graft) 6 vessel Family History Family History Father Hypertension Cerebrovascular accident Family history of coronary artery disease Family history of cardiovascular disease CHF (congestive heart failure) Mother Family history of diabetes mellitus in first degree relative CHF (congestive heart failure) Diabetes mellitus Sibling Diabetes mellitus Kidney failure Sibling Hypertension Blindness and low vision Other Family history of malignant neoplasm Social History Social History Social History: He lives with his and is raising his grandson. He has 4 children. 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 He still continues to smoke a pack a cigarettes a day. He denies any alcohol marijuana or illicit drugs. His is the durable power contracts attorney for healthcare. Code status full code Smoking packs per day: 1 Smoking cigarettes per day: 20.0 Years smoked: 51 Smoking pack-years: 51.00 Smoking status: Current every day smoker Tobacco type: cigarettes Second hand tobacco smoke exposure: Yes Alcohol intake: never Substance use: never Substance use type: does not use Do You Feel Safe in your Home?: Yes Lack of Transportation: No Lack of Food: Never True Current Housing: I Have Housing Concerned About Future Housing: No Difficulty Paying Gas/Electric Bills: No Difficulty Paying for Meds: No Currently Unemployed: No Education: Grade School Difficulty w/ Childcare or Family Care: No Living arrangements: with family Occupation/Education: 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 Gender identity (if verbalized by the patient): Male Spiritual care concerns: No Meds Home Medications and Allergies Home Medications ?Medication ?Instructions ?Recorded ?Confirmed ?Type lancets 33 gauge (BD Ultra Fine #100 ea 05/13/20 03/05/24 Rx Lancets) lancets (ReliOn Ultra Thin Plus #100 ea 08/12/20 03/05/24 Rx Lancets) blood sugar diagnostic (Contour #70 ea 09/15/20 03/05/24 Rx Next Test Strips) nitroglycerin 0.4 mg sublingual 0.4 mg sublingual Q5MIN PRN Chest 12/07/21 03/05/24 Rx tablet (Nitrostat) Pain #25 tabs acetaminophen 500 mg tablet 500 mg PO Q6H 03/04/22 03/05/24 History dapagliflozin propanediol 10 mg 10 mg PO QAM #90 tabs 07/28/23 03/05/24 Rx tablet (Farxiga) blood-glucose meter,continuous #1 ea 11/28/23 03/05/24 Rx (FreeStyle Yoseph 3 [place]) blood-glucose sensor (FreeStyle #6 ea 11/28/23 03/05/24 Rx Yoseph 3 Sensor device) insulin glargine 100 unit/mL (3 26 unit (0.26 mL) subcut QPM #15 mL 11/28/23 03/05/24 Rx mL) subcutaneous pen (Lantus Solostar U-100 Insulin) isosorbide mononitrate 30 mg 30 mg PO DAILY #90 tabs 12/22/23 03/05/24 Rx tablet,extended release 24 hr enalapril maleate 5 mg tablet 5 mg PO DAILY #90 tabs 02/17/24 03/05/24 Rx blood sugar diagnostic (FreeStyle #50 ea 03/05/24 03/05/24 Rx Precision Brian Strips) carvedilol 6.25 mg tablet See Rx Instructions .Route 03/28/24 Rx .COMPLEX #180 tabs metformin 1,000 mg tablet 1,000 mg PO BID #60 tabs 04/03/24 Rx albuterol sulfate 90 mcg/actuation See Rx Instructions .Route 04/16/24 Rx aerosol inhaler .COMPLEX #9 grams lovastatin 20 mg tablet 20 mg PO HS #30 tabs 04/23/24 Rx alprazolam 0.5 mg tablet 0.5 mg PO DAILY PRN anxiety #15 05/10/24 Rx tabs lithium carbonate 300 mg capsule 600 mg (2 x 300 mg) PO BID #180 05/18/24 Rx caps Allergies Allergy/AdvReac Type Severity Reaction Status Date / Time ciprofloxacin (From Cipro) Allergy Mild Rash Verified 05/28/24 15:23 Sulfa (Sulfonamide Allergy Mild rash Verified 05/28/24 15:23 Antibiotics) codeine AdvReac Mild nausea Verified 05/28/24 15:23 Vital Signs Vital Signs - 24 hr 05/28/24 15:09 05/28/24 15:21 05/28/24 15:36 Temperature 36.6 C Pulse Rate 77 77 Respiratory Rate 14 17 Blood Pressure 103/68 104/80 Pulse Oximetry 96 94 98 Oxygen Delivery Room Air Room Air Exam Const: General: in distress HENMT: Mouth: Yes moist mucous membranes Eyes: EOM: EOMs intact bilaterally Neck: Neck: no JVD Resp: Effort & Inspection: normal respiratory effort Auscultation: rhonchi Cardio: Rate: regular rate Rhythm: regular rhythm GI: GI Palp: Yes Soft to palpation Extrem: General: no pedal edema H&P: Results Labs Labs: Cardiac Enzymes 05/28/24 Range/Units 15:30 Troponin I Cancelled Assessment and Plan Assessment and plan (1) Acute coronary syndrome: Code(s): I24.9 - Acute ischemic heart disease, unspecified Status: Acute Plan 68-YEAR-OLD MAN WITH CAD STATUS POST CABG (PICKARD TO LAD, SVG TO PDA, SVG SEQUENTIAL OM2 AND OM3, SVG TO DIAGONAL) and multiple PCIs, diabetes type 2, pancreatic excision due to cancer (2020), and active smoker presents with chest pain whose presentation is consistent with acute coronary syndrome Acute coronary syndrome -given that he has still continued to have chest pain and does have an ischemic EKG, we have discussed the risks, benefits, alternatives of cardiac catheterization with possible PCI and have decided in a patient Center discussion proceed with cardiac catheterization with possible PCI
[2024-05-28 15:57] LABS: Basophils Absolute Auto 0.1 K/mm3 (0.0-0.1); Basophils Percent Auto 0.9 % (0.2-1.2); Eosinophils Absolute Auto 0.5 K/mm3 (0-0.3); Eosinophils Percent Auto 3.4 % (0-4.4); Hematocrit 42.5 % (42.0-52.0); Immature Granulocyte Absolute 0.06 K/mm3 (0.00-0.031); Immature Granulocyte Percent A 0.5 % (0-0.5); Lymphocytes Absolute Auto 3.49 K/mm3 (0.9-3.2); Lymphocytes Percent Auto 26.6 % (18.3-44.2); Mean Corpuscular HGB Conc 32.9 g/dl (32-36); Mean Corpuscular Hemoglobin 31.9 pg (26-34); Mean Corpuscular Volume 96.8 fl (80-100); Mean Platelet Volume 10.7 fl (7.4-10.4); Monocytes Absolute Auto 1.2 K/mm3 (0.1-0.6); Monocytes Percent Auto 8.8 % (2.6-8.5); Neutrophils Absolute Auto 7.9 K/mm3 (1.3-6.7); Neutrophils Percent Auto 59.8 % (45.5-73.1); Partial Thromboplastin Time 26.2 Seconds (22.3-36.8); Platelet Count Result 319 k/mm3 (150-375); Prothrombin Time 13.9 Seconds (11.1-14.7); Red Blood Count 4.39 M/mm3 (4.6-6.20); Red Cell Distribution Width 14.5 % (11.5-14.5); White Blood Count 13.1 K/mm3 (4.5-10.0)
[2024-05-28 16:02] LABS: Alanine Aminotransferase 45 U/L (6-50); Albumin Level 4.4 g/dL (3.5-5.1); Alkaline Phosphatase 71 U/L (38-126); Anion Gap 11 mmol/L (4-12); Aspartate Amino Transferase 31 U/L (17-59); Bilirubin,Total 0.5 mg/dL (0.2-1.3); Blood Urea Nitrogen 30 mg/dL (9-20); Calcium 10.3 mg/dL (8.4-10.2); Carbon Dioxide 24 mmol/L (22-30); Chloride 101 mmol/L (98-107); Estimated CRCL calculation 61 ml/min; Estimated Glomerular Filt Rate > 60; Glucose 118 mg/dL (65-110); Lipase 25 U/L (23-300); Potassium 5.2 mmol/L (3.4-5.0); Sodium 136 mmol/L (137-145)
--- NOTE | 2024-05-28 16:09 | PCCCNOTE ---
1516-Spoke with EMS, stated the pt is alert and the daughter whom is at home is aware the pt is coming to the hospital. Stated currently he has no one coming to the hospital to assist him at this time. CM did not intervene with the pt as he is currently being assessed by the doctor.[email or web address]
[2024-05-28 16:14] LABS: NT Pro B Type Natriuretic Pept 200 pg/mL (19.9-100); Troponin I < 0.012 ng/mL (0.000-0.034)
--- NOTE | 2024-05-28 16:40 | P.PCNCC_ITS ---
Cardiac Cath Procedure Note Date of procedure:: 05/28/24 Performing physician:: CATHETERIZATION LABORATORY REPORT Procedure Date: 05/28/2024 Referring Physician: Dr. Bazan Anesthesia: Versed and Fentanyl were ordered and given in my presence at 1553, procedure ended at 1634. Supervision of nurse, Kat Glez monitored moderate sedation with Versed and Fentanyl was provided for 41 minutes. Pre-op Diagnosis: Acute coronary syndrome Post-op Diagnosis: Acute coronary syndrome Procedure(s): Left heart catheterization with coronary angiography Access Site: Right common femoral artery Brief History and Clinical Indications: 68-year-old man with CAD status post PCI and CABG (pickard to LAD, SVG to PDA, SVG sequential to OM2 and OM3, SVG to diagonal 1), pancreatic mass status post excision, insulin-dependent diabetes, and peripheral arterial disease presented with chest pain whose clinical presentation was consistent with acute coronary syndrome. All risks, benefits and alternatives to left heart catheterization with or wi thout percutaneous coronary intervention was discussed at length with the patient. Risk of complications including but not limited to bleeding, infection, arrhythmia, stroke, worsening kidney function, blood loss, groin hematoma, limb loss, emergency coronary artery bypass grafting, and even were discussed with the patient and all questions were answered. The patient understood and wished to proceed. Time out called, patient name, date of , medical record number, allergies, procedure performed, identify Painter Interior Finish, patient and staff member concurred with accurate data, procedure carried on. Findings: LEFT HEART CATHETERIZATION FINDINGS: 1. Left main: The left main coronary artery is widely patent without any significant obstructive disease. 2. Left anterior descending: The LAD has severe ostial disease and becomes occluded in its proximal body after the takeoff of the 1st septal branch. 3. Left circumflex: The left circumflex artery has severe proximal stenosis leading into occluded bifurcation stents involving the proximal left circumflex and OM 2 branch. 4. Right coronary artery: The RCA is occluded right after the takeoff of the SA kitty branch. There is a occluded proximal stent. 5. Grafts PICKARD-LAD patent SVG-PDA 20-40% diffuse stenosis SVG Y Graft with 1 limb grafted to a diagonal branch and the 2nd limb grafted onto the OM2 and OM3 in a sequential fashion. At the distal end of the SVG gr aft prior to anastomosis to the OM3 [place] vessel, there is a 80% stenosis and the OM3 [place] vessel at the site that is immediately distal and proximal of anastomosis site also has disease that is estimated to be 20-40% stenosis. In addition the outflow of the OM3 [place] vessel is small and short in caliber making PCI difficult to perform with significant risk of no reflow. Given this graft does provide flow to 3 vessels, decision was made to not pursue PCI and 2 medically managed. There is also moderate stenosis of the OM2 vessel immediately distal to anastomosis. There is poor retrograde flow into the occluded proximal OM2 stent due to severe stenosis of the [place] OM2 vessel prior to the anastomosis site. The remainder of the graft has 20% diffuse stenosis 6. Left ventricle: A. End-diastolic pressure 20 mmHg. B. LV gram deferred. C. No significant gradient across aortic valve on catheter pullback. 7. Opening AO pressure 77/54 and closing AO pressure 141/69 8. Right iliofemoral angiogram: Right external iliac artery 30-40% stenosis. Right common femoral artery 20-30% calcific stenosis. Proximal portions of the visualized right SFA 30-40% calcific stenosis. Description of Procedure: Informed consent signed and placed in the chart. Patient transferred to laborer bituminous paving room. Prepped and draped in usual sterile fashion. 2% lidocaine in right groin area. Micropuncture needle used to access right common femoral artery with Seldinger technique under fluoroscopic guidance. J wire advanced, micropuncture cannula placed and exchanged out for 6F sheath. 5F JL4 diagnostic catheter engaged Left Main Coronary Artery. 5F JR4 diagnostic catheter engaged Right Coronary Artery. 5F JR4 diagnostic catheter engaged SVG-RCA, SVG Y graft to Diagonal and OM2 and OM3 in sequential fashion. 5F JR4 diagnostic catheter engaged PICKARD-LAD Multiple orthogonal angiogram obtained and reviewed. 5F Pigtail diagnostic catheter crossed aortic valve to obtain LVEDP, LV angiogram deferred. The 5F pigtail diagnostic catheter was then used to perform aortic root injections to ensure no other grafts were present and not evaluated. The 6F sheath was clotted and exchanged out for a new 6F sheath and right iliofemoral angiogram was performed. While the puncture site was appropriate for closure device, the amount of disease and calcification made Angio-Seal and inappropriate device for closure. Hemostasis was achieved by manual pressure. Assessment: Severe multivessel CAD with patent PICKARD-LAD and SVG-RCA. While SVG Y Graft to Diagonal and OM2/3 has distal graft disease at anastomosis site to OM3 [place] vessel and poor retrograde flow to an occluded OM2 stented area that also has poor antegrade flow, the majority of the myocardial territory had sufficient coronary flow. OM3 outflow vessel is also a small and short caliber vessel that makes it technically challenging with increased risk for PCI. Post Operative Condition: Stable No significant blood loss Disposition: Floor Plan: Monitor on telemetry unit ([facility]) Would recommend resuming aspirin 80 mg p.o. daily, a beta-jayden, and isosorbide mononitrate Obtain transthoracic echocardiogram [facility]
--- NOTE | 2024-05-28 16:47 | P.HP_ITS ---
H&P: HPI History of Present Illness Date/Time: 05/28/24 16:47 Chief Complaint: Chest pain Narrative: 68-year-old male past medical history of CAD status post PCI and CABG (bull to LAD, SVG to PDA, SVG sequential to OM2 and OM3, SVG to diagonal 1), insulin- dependent diabetes, pancreatic cancer partial pancreas resection, bipolar hypertension and hyperlipidemia presents the hospital chest pain. Patient was taken to the optical lab technician from the emergency room. Patient seen after coronary catheterization. Patient complains of postop nausea has no other complaints at this time. In the ED the patient had leukocytosis at 13.1, sodium 136, potassium of 5.2, negative troponin BNP of 200, EKG showed sinus rhythm with nonspecific T-wave abnormality. Review of Systems Review of Systems: 12 systems were reviewed and are negativ e except for as per HPI. [facility] Past Medical History Medical History Diabetes mellitus with microalbuminuria Diabetes mellitus with hyperglycemia BMI (body mass index) 20.0-29.9 Diabetes Chronic pancreatitis COVID Diabetes type 2, controlled BMI 21.0-21.9, adult Pancreatic cancer Colonoscopy planned Bowel habit changes Weight loss Anxiety Bipolar disorder, unspecified Essential hypertension Mixed hyperlipidemia [place] (myocardial infarction) Surgical History Surgical History H/O Whipple procedure History of splenectomy History of pancreatectomy History of endoscopy S/P CABG (coronary artery bypass graft) 6 vessel Family History Family History Father Hypertension Cerebrovascular accident Family history of coronary artery disease Family history of cardiovascular disease CHF (congestive heart failure) Mother Family history of diabetes mellitus in first degree relative CHF (congestive heart failure) Diabetes mellitus Sibling Diabetes mellitus Kidney failure Sibling Hypertension Blindness and low vision Other Family history of malignant neoplasm Social History Social History Social History: He lives with his and is raising his grandson. He has 4 children. 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 He still continues to smoke a pack a cigarettes a day. He denies any alcohol marijuana or illicit drugs. His is the durable power store merchandiser for healthcare. Code status full code Smoking packs per day: 1 Smoking cigarettes per day: 20.0 Years smoked: 51 Smoking pack-years: 51.00 Smoking status: Current every day smoker Tobacco type: cigarettes Second hand tobacco smoke exposure: Yes Alcohol intake: never Substance use: never Substance use type: does not use Do You Feel Safe in your Home?: Yes Lack of Transportation: No Lack of Food: Never True Current Housing: I Have Housing Concerned About Future Housing: No Difficulty Paying Gas/Electric Bills: No Difficulty Paying for Meds: No Currently Unemployed: No Education: High School Diploma/GED Difficulty w/ Childcare or Family Care: No Living arrangements: with family Occupation/Education: 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 Gender identity (if verbalized by the patient): Male Spiritual care concerns: No Meds Home Medications and Allergies Home Medications ?Medication ?Instructions ?Recorded ?Confirmed ?Type lancets 33 gauge (BD Ultra Fine #100 ea 05/13/20 05/28/24 Rx Lancets) [facility] 08/12/20 05/28/24 Rx Lancets) blood sugar diagnostic (Contour #70 ea 09/15/20 05/28/24 Rx Next Test Strips) nitroglycerin 0.4 mg sublingual 0.4 mg sublingual Q5MIN PRN Chest 12/07/21 05/28/24 Rx tablet (Nitrostat) Pain #25 tabs acetaminophen 500 mg tablet 500 mg PO Q6H 03/04/22 05/28/24 History dapagliflozin propanediol 10 mg 10 mg PO QAM #90 tabs 07/28/23 05/28/24 Rx tablet (Farxiga) blood-glucose meter,continuous #1 ea 11/28/23 05/28/24 Rx (FreeStyle Yoseph 3 [place]) blood-glucose sensor (FreeStyle #6 ea 11/28/23 05/28/24 Rx Yoseph 3 Sensor device) insulin glargine 100 unit/mL (3 26 unit (0.26 mL) subcut QPM #15 mL 11/28/23 05/28/24 Rx mL) subcutaneous pen (Lantus Solostar U-100 Insulin) isosorbide mononitrate 30 mg 30 mg PO DAILY #90 tabs 12/22/23 05/28/24 Rx tablet,extended release 24 hr enalapril maleate 5 mg tablet 5 mg PO DAILY #90 tabs 02/17/24 05/28/24 Rx blood sugar diagnostic (FreeStyle #50 ea 03/05/24 05/28/24 Rx Precision Brian Strips) carvedilol 6.25 mg tablet See Rx Instructions .Route 03/28/24 05/28/24 Rx .COMPLEX #180 tabs metformin 1,000 mg tablet 1,000 mg PO BID #60 tabs 04/03/24 05/28/24 Rx albuterol sulfate 90 mcg/actuation See Rx Instructions .Route 04/16/24 05/28/24 Rx aerosol inhaler .COMPLEX #9 grams lovastatin 20 mg tablet 20 mg PO HS #30 tabs 04/23/24 05/28/24 Rx alprazolam 0.5 mg tablet 0.5 mg PO DAILY PRN anxiety #15 05/10/24 05/28/24 Rx tabs lithium carbonate 300 mg capsule 600 mg (2 x 300 mg) PO BID #180 05/18/24 05/28/24 Rx caps Allergies Allergy/AdvReac Type Severity Reaction Status Date / Time ciprofloxacin (From Cipro) Allergy Mild Rash Verified 05/28/24 15:23 Sulfa (Sulfonamide Allergy Mild rash Verified 05/28/24 15:23 Antibiotics) codeine AdvReac Mild nausea Verified 05/28/24 15:23 Vital Signs Vital Signs - 24 hr 05/28/24 15:09 05/28/24 15:21 05/28/24 15:36 Temperature 97.9 F Pulse Rate 77 77 Respiratory Rate 14 17 Blood Pressure 103/68 104/80 Pulse Oximetry 96 94 98 Oxygen Delivery Room Air Room Air Exam Narrative: General: Chronically ill-appearing HEENT: normocephalic, atraumatic. Mucous membranes moist. EOMI, PERRLA, bilateral sclera anicteric, no conjunctival injection. Neck supple without JVD, lymphadenopathy, or bruit. Respiratory: clear to ascultation bilaterally. No rales/rhonic/wheezes. Cardiovascular: Regular rate and rhythm, normal S1-S2 upon ascultation. No murmurs, rubs, or clicks. PMI is nondisplaced, capillary refill less than 3 second. Abdomen: Soft, round, no pulsatile masses, nondistended and nontender. No rebound, no guarding. No CVA tenderness, no hepatosplenomegaly. Bowel sounds present to all four quadrants. No high pitch or tinkling sounds, resonant to percussion. Extremities: No cyanosis, clubbing, or edema present. Pulses are palpable 2/2. Active ROM to all four extremities. Neuro: Alert and orientated x 4. PERRLA. Cranial nerves 2-12 intact without focal deficit. Skin: Warm, dry, and intact, without rash, erythema, or lesion. Psych: pleasant, cooperative, normal speech, normal affect, no hallucinations, no dysarthia H&P: Results Labs Labs: Short CBC 05/28/24 Range/Units 15:30 WBC 13.1 H (4.5-10.0) K/mm3 Hgb 14.0 (14.0-18.0) g/dL Hct 42.5 (42.0-52.0) % Plt Count 319 (150-375) k/mm3 BMP 05/28/24 15:30 Sodium 136 L Potassium 5.2 H Chloride 101 Carbon Dioxide 24 BUN 30 H Creatinine 0.99 Glucose 118 H Calcium 10.3 H Cardiac Enzymes 05/28/24 05/28/24 Range/Units 15:30 15:30 Troponin I < 0.012 Cancelled (0.000-0.034) ng/mL Liver Function 05/28/24 Range/Units 15:30 Total Bilirubin 0.5 (0.2-1.3) mg/dL AST 31 (17-59) U/L ALT 45 (6-50) U/L Alkaline Phosphatase 71 (38-126) U/L Albumin 4.4 (3.5-5.1) g/dL Assessment and Plan Assessment and plan (1) Chest pain: Code(s): R07.9 - Chest pain, unspecified Status: Inactive Assessment and Plan: Cardiology consulted taken to the optical lab technician on 05/28/2024 determined not to be a STEMI Plan for medical management for angina Chest x-ray no acute finding (2) Diabetes mellitus with hyperglycemia: Qualifiers: 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 HS Hypoglycemic protocol (3) Bipolar disorder, unspecified: Qualifiers: Active/Remission status: in remission of unspecified degree Qualified Code(s): F31.70 - Bipolar disorder, currently in remission, most recent episode unspecified Code(s): F31.9 - Bipolar disorder, unspecified Status: Acute Assessment and Plan: Continue home medication (4) Essential hypertension: Code(s): I10 - Essential (primary) hypertension Status: Acute Assessment and Plan: To continue home medication (5) Tobacco abuse: Code(s): Z72.0 - Tobacco use Status: Acute Assessment and Plan: Nicotine patch Quality VTE Prophylaxis VTE prophylaxis: mechanical ordered and pharmacologic ordered Hospitalist MIPS Advance Care Plan I have confirmed that the patient's Advanced Care Plan is present, code status is documented, or surrogate decision maker is listed in patient medical record.: Yes Medication Reconciliation I have utilized all available resources to obtain, update and review the patients current medications (includes all prescriptions, OTC, herbals, cannabis, and nutritional supplements).: Yes
--- NOTE | 2024-05-28 17:35 | WPDMODSED ---
Moderate Sedation Note-Pt Data Patient Data Allergies Allergy/AdvReac Type Severity Reaction Status Date / Time ciprofloxacin (From Cipro) Allergy Mild Rash Verified 05/28/24 15:23 Sulfa (Sulfonamide Allergy Mild rash Verified 05/28/24 15:23 Antibiotics) codeine AdvReac Mild nausea Verified 05/28/24 15:23 Home Medications ?Medication ?Instructions ?Recorded ?Confirmed ?Type lancets 33 gauge (BD Ultra Fine #100 ea 05/13/20 03/05/24 Rx Lancets) lancets (ReliOn Ultra Thin Plus #100 ea 08/12/20 03/05/24 Rx Lancets) blood sugar diagnostic (Contour #70 ea 09/15/20 03/05/24 Rx Next Test Strips) nitroglycerin 0.4 mg sublingual 0.4 mg sublingual Q5MIN PRN Chest 12/07/21 03/05/24 Rx tablet (Nitrostat) Pain #25 tabs acetaminophen 500 mg tablet 500 mg PO Q6H 03/04/22 03/05/24 History dapagliflozin propanediol 10 mg 10 mg PO QAM #90 tabs 07/28/23 03/05/24 Rx tablet (Farxiga) blood-glucose meter,continuous #1 ea 11/28/23 03/05/24 Rx (FreeStyle Yoseph 3 [place]) blood-glucose sensor (FreeStyle #6 ea 11/28/23 03/05/24 Rx Yoseph 3 Sensor device) insulin glargine 100 unit/mL (3 26 unit (0.26 mL) subcut QPM #15 mL 11/28/23 03/05/24 Rx mL) subcutaneous pen (Lantus Solostar U-100 Insulin) isosorbide mononitrate 30 mg 30 mg PO DAILY #90 tabs 12/22/23 03/05/24 Rx tablet,extended release 24 hr enalapril maleate 5 mg tablet 5 mg PO DAILY #90 tabs 02/17/24 03/05/24 Rx blood sugar diagnostic (FreeStyle #50 ea 03/05/24 03/05/24 Rx Precision Brian Strips) carvedilol 6.25 mg tablet See Rx Instructions .Route 03/28/24 Rx .COMPLEX #180 tabs metformin 1,000 mg tablet 1,000 mg PO BID #60 tabs 04/03/24 Rx albuterol sulfate 90 mcg/actuation See Rx Instructions .Route 04/16/24 Rx aerosol inhaler .COMPLEX #9 grams lovastatin 20 mg tablet 20 mg PO HS #30 tabs 04/23/24 Rx alprazolam 0.5 mg tablet 0.5 mg PO DAILY PRN anxiety #15 05/10/24 Rx tabs lithium carbonate 300 mg capsule 600 mg (2 x 300 mg) PO BID #180 05/18/24 Rx caps Sedation/Anesthesia: No previous sedation/anesthesia problems (including family history). [facility] Past Medical History Medical History Diabetes mellitus with microalbuminuria Diabetes mellitus with hyperglycemia BMI (body mass index) 20.0-29.9 Diabetes Chronic pancreatitis COVID Diabetes type 2, controlled BMI 21.0-21.9, adult Pancreatic cancer Colonoscopy planned Bowel habit changes Weight loss Anxiety Bipolar disorder, unspecified Essential hypertension Mixed hyperlipidemia Old [place] (myocardial infarction) Surgical History Surgical History H/O Whipple procedure History of splenectomy History of pancreatectomy History of endoscopy S/P CABG (coronary artery bypass graft) 6 vessel Family History Family History Father Hypertension Cerebrovascular accident Family history of coronary artery disease Family history of cardiovascular disease CHF (congestive heart failure) Mother Family history of diabetes mellitus in first degree relative CHF (congestive heart failure) Diabetes mellitus Sibling Diabetes mellitus Kidney failure Sibling Hypertension Blindness and low vision Other Family history of malignant neoplasm Social History Social History Social History: He lives with his and is raising his grandson. He has 4 children. 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 He still continues to smoke a pack a cigarettes a day. He denies any alcohol marijuana or illicit drugs. His is the durable power paralegals for healthcare. Code status full code Smoking packs per day: 1 Smoking cigarettes per day: 20.0 Years smoked: 51 Smoking pack-years: 51.00 Smoking status: Current every day smoker Tobacco type: cigarettes Second hand tobacco smoke exposure: Yes Alcohol intake: never Substance use: never Substance use type: does not use Do You Feel Safe in your Home?: Yes Lack of Transportation: No Lack of Food: Never True Current Housing: I Have Housing Concerned About Future Housing: No Difficulty Paying Gas/Electric Bills: No Difficulty Paying for Meds: No Currently Unemployed: No Education: Grade School Difficulty w/ Childcare or Family Care: No Living arrangements: with family Occupation/Education: 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 Gender identity (if verbalized by the patient): Male Spiritual care concerns: No Mod Sed Physical Exam Physical Exam Pre Procedural Exam: Normal: Heart Rate and Heart Rhythm Hours since solid foods: 6 Hours since liquid intake: 6 Mallampati Classification: class II Internal Medicine - PN: Obj Da Vital Signs Vital Signs: Vital Signs - 24 hr 05/28/24 15:09 05/28/24 15:21 05/28/24 15:36 Temperature 36.6 C Pulse Rate 77 77 Pulse Rate [Right Pedal (Dorsalis Pedis)] Respiratory Rate 14 17 Blood Pressure 103/68 104/80 Pulse Oximetry 96 94 98 Oxygen Delivery Room Air Room Air 05/28/24 17:05 05/28/24 17:05 05/28/24 17:20 Temperature Pulse Rate 66 Pulse Rate [Right Pedal (Dorsalis Pedis)] 66 65 Respiratory Rate 14 Blood Pressure 122/66 Pulse Oximetry 98 Oxygen Delivery Room Air 05/28/24 17:20 Temperature Pulse Rate 65 Pulse Rate [Right Pedal (Dorsalis Pedis)] Respiratory Rate 15 Blood Pressure 128/73 Pulse Oximetry 96 Oxygen Delivery Room Air Labs 05/28/24 15:30 05/28/24 15:30 Labs: Laboratory Results - last 24 hr 05/28/24 05/28/24 15:30 15:30 WBC 13.1 H RBC 4.39 L Hgb 14.0 Hct 42.5 MCV 96.8 MCH 31.9 MCHC 32.9 RDW 14.5 Plt Count 319 MPV 10.7 H Immature Gran % (Auto) 0.5 Neut % (Auto) 59.8 Lymph % (Auto) 26.6 [place] % (Auto) 8.8 H Eos % (Auto) 3.4 Baso % (Auto) 0.9 Lymph # (Auto) 3.49 H [place] # (Auto) 1.2 H Eos # (Auto) 0.5 H Baso # (Auto) 0.1 Abs Immat Gran (auto) 0.06 H Absolute Neuts (auto) 7.9 H Absolute Nucleated RBC 0.000 Nucleated RBC % 0.0 PT 13.9 INR 1.0 APTT 26.2 Sodium 136 L Potassium 5.2 H Chloride 101 Carbon Dioxide 24 Anion Gap 11 BUN 30 H Creatinine 0.99 Estim Creat Clear Calc 61 Estimated GFR > 60 Glucose 118 H Calcium 10.3 H Total Bilirubin 0.5 AST 31 ALT 45 Alkaline Phosphatase 71 Troponin I < 0.012 Cancelled NT-Pro-B Natriuret Pep 200 H Total Protein 8.0 Albumin 4.4 Lipase 25 ASA Classification/Sedation ASA Classification/Sedation ASA Class: III Emergent: Yes Risks: Risks, benefits and alternatives explained and patient/family accepted plan for sedation. Patient re-evaluated immediately prior to sedation.
--- OUTSIDE RECORDS SUMMARY | 2024-05-28 18:17 | XMS_ITS | Clinical Summary ---
Author Organization [facility] [address] Address [address] [place] [address] Care Team Providers Care Algologist Name Role Phone Laron Matos MD Primary Care Provider + [phone] Yosvany Richardson MD Unavailable [phone] Scott Reyna MD Unavailable [phone] Allergies Active Allergy Reactions Criticality Noted Date Comments Codeine Other (See comments) Reaction: Unknown, , , Reaction: Unknown, Other Hives Medium 07/21/2020 Pt states an unknown antibiotic gave him hives in May or June 2020 Sulfa (Sulfonamide Antibiotics) Other (See comments) Reaction: Unknown, , , Reaction: Unknown, Medications carvedilol (COREG) 6.25 mg tablet take 1 tablet (6.25MG) by oral route 2 times every day with food 60 5 2 Active lovastatin (MEVACOR) 20 mg tablet Take 20 mg by mouth nightly Active isosorbide mononitrate ER (IMDUR) 30 mg 24 hr tablet Take 30 mg by mouth daily Active metFORMIN (GLUCOPHAGE) 1,000 mg tablet Take 1,000 mg by mouth 2 (two) times a day with meals Active lithium 300 mg tablet/capsule Take 600 mg by mouth 2 (two) times a day with meals Active ALPRAZolam (XANAX) 0.5 mg tablet Take 0.5 mg by mouth daily Active enalapril (VASOTEC) 5 mg tablet Take 5 mg by mouth daily Active sertraline (ZOLOFT) 50 mg tablet Take 50 mg by mouth daily Active polyethylene glycol (MIRALAX) 17 gram packetIndications:c onstipation Take 1 packet (17 g total) by mouth daily 1 Active oxyCODONE (ROXICODONE) 5 mg immediate release tabletIndications:P ain Take 1 tablet (5 mg total) by mouth every 4 (four) hours as needed for pain for up to 30 doses 30 tablet 1 Active ondansetron ODT (ZOFRAN-ODT) 8 mg disintegrating tablet Take 1 tablet by mouth every 8 (eight) hours as needed for nausea or vomiting 1 Active prochlorperazine (Compazine) 10 mg tablet Take 1 tablet (10 mg total) by mouth every 6 (six) hours as needed for nausea or vomiting 30 tablet 1 Active polyethylene glycol (MIRALAX) 17 gram/dose powder Take 17 g by mouth daily 235 g 1 Active Active Problems Problem Noted Date Diagnosed Date Neuroendocrine tumor 08/28/2020 Severe malnutrition 08/28/2020 Cancer of endocrine pancreas 08/13/2020 Overview (08/13/2020): Added automatically from request for surgery [id number] Pancreas cyst 08/06/2020 Surgical History Surgery Date Site/Laterality Comments HEART SURGERY 03/21/2011 - 03/20/2012 Medical History Medical History Date Comments Bipolar disorder (HCC) Colon polyp Pancreatitis Coronary artery disease Hyperlipidemia Hypertension Type 2 diabetes mellitus (HCC) Neuropathy loss of some mot or control in hands Cancer of pancreas (HCC) Tobacco use Family History Medical History Relation Name Comments Valvular heart disease Brother 2 Valvu lar Heart Disease; Other Father Pacemaker; Heart failure Mother Congestive Hea rt Failure; Heart failure Sister 2 Congestive Hea rt Failure; Relation Name Status Comments Brother 1 Alive Brother 2 Father Alive Mother Alive Sister 1 Alive Sister 2 Social History Tobacco Use Types Packs/Day Years Used Date Smoking Tobacco: Every Day Cigarettes 0.8 50 Smokeless Tobacco: Never Tobacco Cessation:Ready to Q uit: No Alcohol Use Standard Drinks/Week Comments No 0 (1 standard drink = 0.6 oz pur e alcohol) AUDIT-C Answer Date Recorded Q1: How often do you have a drink containing alc ohol? Never 08/21/2020 Average Number of Drinks Not on file 021 Q3: How often do you have si x or more drinks on one occasion? 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 Gender Identity Not on file Sexual Orientation Not on file Obstetrics History Last Filed Vital Signs Vital Sign Reading Time Taken Comments Blood Pressure 110/69 09/15/2020 12:51 PM CDT Pulse 73 09/15/2020 12:51 PM CDT Temperature 36.5 C (97.7 F) 09/15/2020 12:51 PM CDT Respiratory Rate 16 09/15/2020 12:51 PM CDT Oxygen Saturation 98% 09/15/2020 12:51 PM CDT Inhaled Oxygen Concentration - - Weight 67.2 kg (148 lb 3.2 oz) 09/15/2020 12:51 PM CDT Height 177.8 cm (5' 10 ) 08/21/2020 9:15 AM CDT Body Mass Index 21.26 08/21/2020 9:15 AM CDT Plan of Treatment Not on file Medical Devices Implanted Type Area Manager Sql Device Identifier Shelf Expiration Date Model / Serial / Lot Stent Stent N/A: Heart Description:At least three s tents in heart, placed approximately 2005 Insurance [facility] [employer] [facility] Advance Directives For more information, please contact: [phone] * Full Code (Latest Code Status on File) Date Activated Date Inactivated Comments 08/28/2020 8:06 PM 09/01/2020 7:04 PM * Full Code Date Activated Date Inactivated Comments 07/21/2020 9:19 AM 07/21/2020 4:17 PM Care Teams Algologist Relationship Specialty Start Date End Date Laron Matos MD PCP - General 03/28/12 Yosvany Richardson MD [address] [place] [address] Referring Physician Gastroenterology 07/29/20 Scott Reyna MD [address] [place] [address] Consulting Physician Transplant Hepatology 09/01/20
--- OUTSIDE RECORDS SUMMARY | 2024-05-28 18:17 | XMS_ITS | Referral Summary ---
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 Gender Identity Not on file Sexual Orientation Not on file Last Filed Vital Signs Vital Sign Reading [...] on file Medical Devices Implanted Type Area Household Refrigeration Mechanic Device Identifier Shelf Expiration Date Model / Serial / Lot Stent Stent N/A: Heart Description:At least three s tents in heart, placed approximately 2005 Insurance [facility] [address] [place] [address] [employer] [facility] [employer] [facility] Advance Directives For more information, please contact: [phone] * Full Code (Latest Code Status on File) Date Activated Date Inactivated Comments 08/28/2020 8:06 PM 09/01/2020 7:04 PM * Full Code Date Activated Date Inactivated Comments 07/21/2020 9:19 AM 07/21/2020 4:17 PM Care Teams Store Manager Relationship Specialty Start Date End Date Laron Matos MD PCP - General 03/28/12 Yosvany Richardson MD [address] [place] [address] Referring Physician Gastroenterology 07/29/20 Scott Reyna MD [address] [place] [address] Consulting Physician Transplant Hepatology 09/01/20
--- OUTSIDE RECORDS SUMMARY | 2024-05-28 18:17 | XMS_ITS | Continuity of Care Document ---
Author Organization [facility] Address [address] [place] [address] [address] [place] [address] Phone Care Team Providers Care Inventory Controller Name Role Phone Mauro Herring Unavailable Unavailable Procedures Procedure Date Eye Exam & Treatment Advance Directives Directive Yes / No Effective Date File Name No Information Encounters Encounter Description Practice Location Reason(s) For Visit Diagnoses Date Provider Providers Copied on Encounter [facility], [address], [place], [place], [id number], [place] tel:[phone] [facility] No Information [address] [facility] [place] , [address], [place], [address], [place]. tel:[phone] Referring Provider: Laron Matos MD F, [address] [place], [address]. tel:[phone] Family History Family Member Type Diagnosis Age At Onset No Information Payers Payer name Insurance type Covered alliance party ID Authoriza tion(s) Medicaid [facility] [id number] Social History Type Description Quantity Date Captured [...]
--- OUTSIDE RECORDS SUMMARY | 2024-05-28 18:17 | XMS_ITS | Clinical Summary ---
Author Organization [facility] Address [facility] [place] [address] Care Team Providers Care Logging Equipment Mechanic Name Role Phone Unavailable Primary Care Provider Unavailabl e Social History Tobacco Use Types Packs/Day Years Used Date Smoking Tobacco: Never Assessed Sex and Gender Information Value Date Recorded Sex Assigned at Not on file Legal Sex Male 5:31 PM CDT Gender Identity Not on file Sexual Orientation Not on file Plan of Treatment Health Maintenance Due Date Last Done Comments Colorectal Cancer Screening Colonoscopy (10 Years) 1956 Hepatitis C 1974 DTaP, Tdap and Td Vaccines ( 1 - Tdap) 10/07/1975 Zoster Vaccines (1 of 2) 2006 Pneumococcal Vaccine: 65+ Ye ars (1 of 1 - PCV) 2021 COVID-19 Vaccine ( - 2023-2 5 season) 2023 Influenza Adult (#1) 2023 RSV Immunization or 60+ Years (1 - 1-dose 75+ series) 10/07/2031 Meningococcal B Vaccine Aged Out No l onger eligible based on patient's age to complete this topic Meningococcal Vaccine Aged Out No zainab audra eligible based on patient's age to complete this topic RSV Immunizations Under 20 Months Aged Out No longer eligible based on patient's age to complete this topic
[2024-05-28] MEDS: ACETAMINOPHEN 325 MG TABLET 650 MG PO (18:28)
[2024-05-28] MEDS: ONDANSETRON INJ 4 MG/2 ML VIAL IV PUSH (18:30)
[2024-05-28] MEDS: SODIUM CHLORIDE 0.9% IV 1,000 ML 125 ML IV CONT (18:37)
[2024-05-28 19:14] LABS: Glucose Point of Care 114 mg/dl (65-105)
[2024-05-28 19:14] LABS: Glucose Point of Care 85 mg/dl (65-105)
[2024-05-28] MEDS: LITHIUM CARBONATE 300 MG CAPSULE 600 MG PO (20:14)
[2024-05-28] MEDS: LOVASTATIN 20 MG TABLET PO (20:14)
[2024-05-28] MEDS: NICOTINE (*PBKC) 21 MG PATCH 1 PATCH TRANSDERM (20:14)
[2024-05-28] MEDS: carvediloL 6.25 MG TABLET BY MOUTH (20:14)
[2024-05-28 21:00] LABS: Glucose Point of Care 161 mg/dl (65-105)
[2024-05-29] VITALS (10 sets, daily range): BP systolic 112–149; BP diastolic 61–74; PULSE 64–98; RESP 16–20; TEMP 36.6; O2SAT 96–98; BMI 23.1
[2024-05-29] MEDS: ACETAMINOPHEN 325 MG TABLET 650 MG PO (04:09)
[2024-05-29 04:39] LABS: Basophils Absolute Auto 0.1 K/mm3 (0.0-0.1); Eosinophils Absolute Auto 0.5 K/mm3 (0-0.3); Eosinophils Percent Auto 3.5 % (0-4.4); Hematocrit 41.4 % (42.0-52.0); Hemoglobin 13.4 g/dL (14.0-18.0); Immature Granulocyte Absolute 0.04 K/mm3 (0.00-0.031); Immature Granulocyte Percent A 0.3 % (0-0.5); Lymphocytes Absolute Auto 4.02 K/mm3 (0.9-3.2); Lymphocytes Percent Auto 29.6 % (18.3-44.2); Mean Corpuscular HGB Conc 32.4 g/dl (32-36); Mean Corpuscular Hemoglobin 31.4 pg (26-34); Mean Platelet Volume 10.4 fl (7.4-10.4); Monocytes Absolute Auto 1.1 K/mm3 (0.1-0.6); Monocytes Percent Auto 8.2 % (2.6-8.5); Neutrophils Absolute Auto 7.8 K/mm3 (1.3-6.7); Neutrophils Percent Auto 57.4 % (45.5-73.1); Platelet Count Result 279 k/mm3 (150-375); Red Blood Count 4.27 M/mm3 (4.6-6.20); Red Cell Distribution Width 14.7 % (11.5-14.5); White Blood Count 13.6 K/mm3 (4.5-10.0)
[2024-05-29 04:57] LABS: Anion Gap 8 mmol/L (4-12); Blood Urea Nitrogen 28 mg/dL (9-20); Calcium 9.9 mg/dL (8.4-10.2); Carbon Dioxide 24 mmol/L (22-30); Chloride 107 mmol/L (98-107); Estimated CRCL calculation 76 ml/min; Estimated Glomerular Filt Rate > 60; Glucose 123 mg/dL (65-110); Potassium 4.1 mmol/L (3.4-5.0); Sodium 139 mmol/L (137-145)
[2024-05-29 05:07] LABS: Atypical Lymphocytes Present; Platelet Estimate Adequate (Adequate); Schistocytes None Seen
[2024-05-29 07:50] LABS: Glucose Point of Care 151 mg/dl (65-105)
[2024-05-29] MEDS: NICOTINE (*PBKC) 21 MG PATCH 1 PATCH TRANSDERM (08:47)
[2024-05-29] MEDS: carvediloL 6.25 MG TABLET BY MOUTH (08:48)
[2024-05-29] MEDS: ENALAPRIL MALEATE 5 MG TABLET PO (08:48)
[2024-05-29] MEDS: ISOSORBIDE MONONITRATE 30 MG TAB.ER.24H PO (08:48)
[2024-05-29] MEDS: ENOXAPARIN 40 MG/0.4 ML SYRINGE SUB-Q (08:49)
[2024-05-29 11:35] LABS: Glucose Point of Care 204 mg/dl (65-105)
--- NOTE | 2024-05-29 11:54 | PM.PNCARD ---
Progress Note: A&P Assessment and Plan (1) Acute coronary syndrome: Code(s): I24.9 - Acute ischemic heart disease, unspecified Status: Acute Plan 68-YEAR-OLD MAN WITH CAD STATUS POST CABG (PICKARD TO LAD, SVG TO PDA, SVG SEQUENTIAL OM2 AND OM3, SVG TO DIAGONAL) and multiple PCIs, diabetes type 2, pancreatic excision due to cancer (2020), and active smoker presents with chest pain whose presentation is consistent with acute coronary syndrome Left heart cath yesterday revealed Subjective Date/time seen: 05/29/24 11:54 Interval history: Cardiology follow up visit Review of Systems Review of Systems: All systems reviewed & are unremarkable except as noted in HPI and below Exam Const: General: in distress HENMT: Mouth: Yes moist mucous membranes Eyes: EOM: EOMs intact bilaterally Neck: Neck: no JVD Resp: Effort & Inspection: normal respiratory effort Auscultation: rhonchi Cardio: Rate: regular rate Rhythm: regular rhythm Extrem: General: no pedal edema Objective Data Vital Signs Vital Signs: Vital Signs - 24 hr 05/28/24 15:09 05/28/24 15:21 05/28/24 15:36 Temperature 36.6 C Pulse Rate 77 77 Pulse Rate [Right Pedal (Dorsalis Pedis)] Respiratory Rate 14 17 Blood Pressure 103/68 104/80 Pulse Oximetry 96 94 98 Oxygen Delivery Room Air Room Air 05/28/24 17:05 05/28/24 17:05 05/28/24 17:20 Temperature Pulse Rate 66 Pulse Rate [Right Pedal (Dorsalis Pedis)] 66 65 Respiratory Rate 14 Blood Pressure 122/66 Pulse Oximetry 98 Oxygen Delivery Room Air 05/28/24 17:20 05/28/24 17:30 05/28/24 17:30 Temperature Pulse Rate 65 65 Pulse Rate [Right Pedal (Dorsalis Pedis)] 68 Respiratory Rate 15 16 Blood Pressure 128/73 133/74 Pulse Oximetry 96 95 Oxygen Delivery Room Air Room Air 05/28/24 17:45 05/28/24 17:45 05/28/24 18:00 Temperature Pulse Rate 68 Pulse Rate [Right Pedal (Dorsalis Pedis)] 68 69 Respiratory Rate 15 Blood Pressure 123/71 Pulse Oximetry 95 Oxygen Delivery Room Air 05/28/24 18:00 05/28/24 18:30 05/28/24 18:30 Temperature Pulse Rate 67 75 Pulse Rate [Right Pedal (Dorsalis Pedis)] 73 Respiratory Rate 16 16 Blood Pressure 128/75 119/76 Pulse Oximetry 96 94 Oxygen Delivery Room Air Room Air 05/28/24 19:00 05/28/24 19:00 05/28/24 19:30 Temperature 36.8 C Pulse Rate 71 74 Pulse Rate [Right Pedal (Dorsalis Pedis)] 70 Respiratory Rate 15 16 Blood Pressure 118/66 115/69 Pulse Oximetry 95 94 Oxygen Delivery Room Air 05/28/24 20:00 05/28/24 20:00 05/28/24 20:00 Temperature 36.6 C Pulse Rate 73 76 Pulse Rate [Right Pedal (Dorsalis Pedis)] Respiratory Rate 20 Blood Pressure 109/63 Pulse Oximetry 95 Oxygen Delivery Room Air 05/28/24 20:14 05/28/24 22:00 05/28/24 23:59 Temperature 36.7 C Pulse Rate 78 79 69 Pulse Rate [Right Pedal (Dorsalis Pedis)] Respiratory Rate 18 Blood Pressure 117/55 L Pulse Oximetry 95 Oxygen Delivery 05/28/24 23:59 05/29/24 00:00 05/29/24 02:00 Temperature Pulse Rate 65 65 Pulse Rate [Right Pedal (Dorsalis Pedis)] Respiratory Rate Blood Pressure Pulse Oximetry Oxygen Delivery Room Air 05/29/24 04:00 05/29/24 04:00 05/29/24 04:00 Temperature 36.6 C Pulse Rate 68 66 Pulse Rate [Right Pedal (Dorsalis Pedis)] Respiratory Rate 16 Blood Pressure 135/66 Pulse Oximetry 97 Oxygen Delivery Room Air 05/29/24 06:00 05/29/24 07:34 05/29/24 08:48 Temperature 36.6 C Pulse Rate 64 77 98 Pulse Rate [Right Pedal (Dorsalis Pedis)] Respiratory Rate 16 Blood Pressure 149/74 H Pulse Oximetry 96 Oxygen Delivery 05/29/24 11:26 Temperature 36.6 C Pulse Rate 72 Pulse Rate [Right Pedal (Dorsalis Pedis)] Respiratory Rate 20 Blood Pressure 112/61 Pulse Oximetry 98 Oxygen Delivery Intake/Output Intake/Output: Intake & Output 05/26/24 05/28/24 05/28/24 05/29/24 23:59 00:59 23:59 23:59 Intake Total 300 710 Output Total 20 2923 Balance 280 -1740 Meds/Results Medications: Active Medications Generic Name Dose Route Start Last Admin Trade Name Freq PRN Reason Stop Dose Admin Acetaminophen 650 mg 05/28/24 18:07 05/29/24 04:09 Acetaminophen 325 Mg Tablet PO 650 mg Q6H PRN Administration Mild Pain (1-3) or Fever Albuterol 2 puff 05/28/24 19:10 Albuterol Sulfate (*Sp) Aerosol 1 Puff INHALATION Q6H PRN SHORTNESS OF BREATH Alprazolam 0.25 mg 05/28/24 19:22 Alprazolam (*Crx) 0.25 Mg Tablet PO DAILY PRN anxiety Carvedilol 6.25 mg 05/28/24 21:00 05/29/24 08:48 Carvedilol 6.25 Mg Tablet BY MOUTH 6.25 mg Q12HR CHAYO Administration Dextrose 12.5 gm 05/28/24 18:58 Dextrose 50% 25 Gm/50 Ml Syringe IV PUSH PRN PRN Hypoglycemia Protocol Enalapril Maleate 5 mg 05/29/24 09:00 05/29/24 08:48 Enalapril Maleate 5 Mg Tablet PO 5 mg DAILY CHAYO Administration Enoxaparin Sodium 40 mg 05/29/24 09:00 05/29/24 08:49 Enoxaparin 40 Mg/0.4 Ml Syringe SUB-Q 40 mg DAILY CHAYO Administration Glucagon 1 mg 05/28/24 18:58 Glucagon For Inj 1 Mg Vial IM PRN PRN Hypoglycemia Protocol Glucose 15 gm 05/28/24 18:58 Glucose Oral Gel 15 Gm Of Glucse In 37.5 Gm Tube PO PRN PRN Hypoglycemia Protocol Dextrose 1,000 mls @ 100 mls/hr 05/28/24 18:58 Dextrose 5% 1,000 Ml IVPB PRN PRN Hypoglycemia Protocol Isosorbide Mononitrate 30 mg 05/30/24 09:00 Isosorbide Mononitrate 30 Mg Tab.Er.24h PO QAM CHAYO [place] Carbonate 600 mg 05/29/24 09:00 [place] Carbonate 300 Mg Capsule PO BID CHAYO Lovastatin 20 mg 05/28/24 21:00 05/28/24 20:14 Lovastatin 20 Mg Tablet PO 20 mg HS CHAYO Administration Miscellaneous Information 1 each 05/29/24 00:01 Best If We Leave It As Bid And Document Pt Dose Refusal. Clarify [place]; According To Ex XX 06/28/24 00:00 CLARIFY CHAYO Nicotine 1 patch 05/28/24 19:25 05/29/24 08:47 Nicotine (*Kelkc) 21 Mg Patch TRANSDERM 1 patch DAILY CHAYO Administration Ondansetron HCl 4 mg 05/28/24 17:51 05/28/24 18:30 Ondansetron Inj 4 Mg/2 Ml Vial IV PUSH 4 mg Q4H PRN Administration Nausea And Vomiting Prochlorperazine Edisylate 10 mg 05/28/24 17:51 Prochlorperazine Edisylate 10 Mg/2 Ml Vial IV PUSH Q6H PRN Nausea And Vomiting Radiology Results: ITS Impressions Abdomen X-Ray 05/28/24 19:04 IMPRESSION: Mild gastric distention. Paucity of small bowel gas. No overt signs of free air, ileus or obstruction. Contrast excretion presumably from outside imaging studies. Possible bladder ureterocele. Chest X-Ray 05/29/24 06:23 Impression: Clear lungs. Labs Labs: Laboratory Results - last 24 hr 05/28/24 05/28/24 05/28/24 15:30 15:30 17:36 WBC 13.1 H RBC 4.39 L Hgb 14.0 Hct 42.5 MCV 96.8 MCH 31.9 MCHC 32.9 RDW 14.5 Plt Count 319 MPV 10.7 H Immature Gran % (Auto) 0.5 Neut % (Auto) 59.8 Lymph % (Auto) 26.6 [place] % (Auto) 8.8 H Eos % (Auto) 3.4 Baso % (Auto) 0.9 Lymph # (Auto) 3.49 H [place] # (Auto) 1.2 H Eos # (Auto) 0.5 H Baso # (Auto) 0.1 Abs Immat Gran (auto) 0.06 H Absolute Neuts (auto) 7.9 H Absolute Nucleated RBC 0.000 Band Neutrophils % Nucleated RBC % 0.0 Atypical Lymphocytes Platelet Estimate Schistocytes PT 13.9 INR 1.0 APTT 26.2 Sodium 136 L Potassium 5.2 H Chloride 101 Carbon Dioxide 24 Anion Gap 11 BUN 30 H Creatinine 0.99 Estim Creat Clear Calc 61 Estimated GFR > 60 Glucose 118 H POC Capillary Glucose 85 Calcium 10.3 H Total Bilirubin 0.5 AST 31 ALT 45 Alkaline Phosphatase 71 Troponin I < 0.012 Cancelled NT-Pro-B Natriuret Pep 200 H Total Protein 8.0 Albumin 4.4 Lipase 25 05/28/24 05/28/24 05/29/24 19:08 19:58 04:00 WBC 13.6 H RBC 4.27 L Hgb 13.4 L Hct 41.4 L MCV 97.0 MCH 31.4 MCHC 32.4 RDW 14.7 H Plt Count 279 MPV 10.4 Immature Gran % (Auto) 0.3 Neut % (Auto) 57.4 Lymph % (Auto) 29.6 [place] % (Auto) 8.2 Eos % (Auto) 3.5 Baso % (Auto) 1.0 Lymph # (Auto) 4.02 H [place] # (Auto) 1.1 H Eos # (Auto) 0.5 H Baso # (Auto) 0.1 Abs Immat Gran (auto) 0.04 H Absolute Neuts (auto) 7.8 H Absolute Nucleated RBC 0.000 Band Neutrophils % Not Reportable Nucleated RBC % 0.0 Atypical Lymphocytes Present Platelet Estimate Adequate Schistocytes None seen PT INR APTT Sodium 139 Potassium 4.1 Chloride 107 Carbon Dioxide 24 Anion Gap 8 BUN 28 H Creatinine 0.79 Estim Creat Clear Calc 76 Estimated GFR > 60 Glucose 123 H POC Capillary Glucose 114 H 161 H Calcium 9.9 Total Bilirubin AST ALT Alkaline Phosphatase Troponin I NT-Pro-B Natriuret Pep Total Protein Albumin Lipase 05/29/24 05/29/24 07:32 11:30 WBC RBC Hgb Hct MCV MCH MCHC RDW Plt Count MPV Immature Gran % (Auto) Neut % (Auto) Lymph % (Auto) [place] % (Auto) Eos % (Auto) Baso % (Auto) Lymph # (Auto) [place] # (Auto) Eos # (Auto) Baso # (Auto) Abs Immat Gran (auto) Absolute Neuts (auto) Absolute Nucleated RBC Band Neutrophils % Nucleated RBC % Atypical Lymphocytes Platelet Estimate Schistocytes PT INR APTT Sodium Potassium Chloride Carbon Dioxide Anion Gap BUN Creatinine Estim Creat Clear Calc Estimated GFR Glucose POC Capillary Glucose 151 H 204 H Calcium Total Bilirubin AST ALT Alkaline Phosphatase Troponin I NT-Pro-B Natriuret Pep Total Protein Albumin Lipase Quality VTE Prophylaxis VTE prophylaxis: mechanical ordered and pharmacologic ordered
--- NOTE | 2024-05-29 12:44 | P.DS_ITS ---
DS: Admitting Diagnosis Discharge Date 05/29/24 Admitting Diagnosis Chest pain DS: Discharge Diagnosis Discharge Diagnosis (1) Acute coronary syndrome: Code(s): I24.9 - Acute ischemic heart disease, unspecified Status: Acute DS: Summary Hospital Course Hospital Course: patient with significant cardiac history presented with c/o CP, was seen by the motor transport inspector and had cardiac cath which showed patient has some blockage of vessels however the vessles are narrow in caliber and not amendable to intervention, patient remains clinically and seen by the cardiology service, will discharge the patient today. Time Spent with Patient Time attestation: Total time spent providing and/or coordinating discharge services: DS: Data Data Completed and Pending Labs on day of discharge: Labs from last 24 hours 05/29/24 05/29/24 05/29/24 11:30 07:32 04:00 WBC 13.6 H RBC 4.27 L Hgb 13.4 L Hct 41.4 L MCV 97.0 MCH 31.4 MCHC 32.4 RDW 14.7 H Plt Count 279 MPV 10.4 Immature Gran % (Auto) 0.3 Neut % (Auto) 57.4 Lymph % (Auto) 29.6 [place]ary % (Auto) 8.2 Eos % (Auto) 3.5 Baso % (Auto) 1.0 Lymph # (Auto) 4.02 H [place]ary # (Auto) 1.1 H Eos # (Auto) 0.5 H Baso # (Auto) 0.1 Abs Immat Gran (auto) 0.04 H Absolute Neuts (auto) 7.8 H Absolute Nucleated RBC 0.000 Band Neutrophils % Not Reportable Nucleated RBC % 0.0 Atypical Lymphocytes Present Platelet Estimate Adequate Schistocytes None seen PT INR APTT Sodium 139 Potassium 4.1 Chloride 107 Carbon Dioxide 24 Anion Gap 8 BUN 28 H Creatinine 0.79 Estim Creat Clear Calc 76 Estimated GFR > 60 Glucose 123 H POC Capillary Glucose 204 H 151 H Calcium 9.9 Total Bilirubin AST ALT Alkaline Phosphatase Troponin I NT-Pro-B Natriuret Pep Total Protein Albumin Lipase 05/28/24 05/28/24 05/28/24 19:58 19:08 17:36 WBC RBC Hgb Hct MCV MCH MCHC RDW Plt Count MPV Immature Gran % (Auto) Neut % (Auto) Lymph % (Auto) [place]ary % (Auto) Eos % (Auto) Baso % (Auto) Lymph # (Auto) [place]ary # (Auto) Eos # (Auto) Baso # (Auto) Abs Immat Gran (auto) Absolute Neuts (auto) Absolute Nucleated RBC Band Neutrophils % Nucleated RBC % Atypical Lymphocytes Platelet Estimate Schistocytes PT INR APTT Sodium Potassium Chloride Carbon Dioxide Anion Gap BUN Creatinine Estim Creat Clear Calc Estimated GFR Glucose POC Capillary Glucose 161 H 114 H 85 Calcium Total Bilirubin AST ALT Alkaline Phosphatase Troponin I NT-Pro-B Natriuret Pep Total Protein Albumin Lipase 05/28/24 05/28/24 15:30 15:30 WBC 13.1 H RBC 4.39 L Hgb 14.0 Hct 42.5 MCV 96.8 MCH 31.9 MCHC 32.9 RDW 14.5 Plt Count 319 MPV 10.7 H Immature Gran % (Auto) 0.5 Neut % (Auto) 59.8 Lymph % (Auto) 26.6 [place] % (Auto) 8.8 H Eos % (Auto) 3.4 Baso % (Auto) 0.9 Lymph # (Auto) 3.49 H Geary # (Auto) 1.2 H Eos # (Auto) 0.5 H Baso # (Auto) 0.1 Abs Immat Gran (auto) 0.06 H Absolute Neuts (auto) 7.9 H Absolute Nucleated RBC 0.000 Band Neutrophils % Nucleated RBC % 0.0 Atypical Lymphocytes Platelet Estimate Schistocytes PT 13.9 INR 1.0 APTT 26.2 Sodium 136 L Potassium 5.2 H Chloride 101 Carbon Dioxide 24 Anion Gap 11 BUN 30 H Creatinine 0.99 Estim Creat Clear Calc 61 Estimated GFR > 60 Glucose 118 H POC Capillary Glucose Calcium 10.3 H Total Bilirubin 0.5 AST 31 ALT 45 Alkaline Phosphatase 71 Troponin I Cancelled < 0.012 NT-Pro-B Natriuret Pep 200 H Total Protein 8.0 Albumin 4.4 Lipase 25 Discharge Plan Discharge Attending physician on discharge: Kunal Frost Consulting providers: Fahad Crews; Kunal Frost; Marychuy Sanchez; Jasmyn Jarrett; Jeffrey Ovalles; Danny Azar Discharging Clinician: Kiley Wheatley Patient Disposition: Home, Self-Care Activity: as tolerated Diet: heart healthy Discharge Instructions: patient to [facility] discharge care instruction from his motor transport inspector and follow up as scheduled, patient to follow up his primary care provider as soon as possible, patient is instructed if any symptoms worsen to go to nearest ER. Patient Instructions: Antibiotic Form, Angina (DC), Chest Pain (GEN), Shortness of Breath (GEN) Patient Language: Panamanian Stand Alone Forms: General Discharge Information Follow-up/Referrals: Kunal Frost MD [Physician] - Laron Matos MD [Primary Care Provider] - Discharge Medications: Continued acetaminophen 500 mg tablet 500 mg PO Q6H dapagliflozin propanediol [Farxiga] 10 mg tablet 10 mg PO QAM Qty: 90 3RF (DME) FreeStyle Precision Brian Strips Strip See Rx Instructions .Route Qty: 50 2RF Rx Instructions: As directed to calibrate bea 3 insulin glargine [Lantus Solostar U-100 Insulin] 100 unit/mL (3 mL) insulin pen 26 unit subcut QPM Qty: 15 2RF (DME) FreeStyle Bea 3 Wayne Misc See Rx Instructions .Route Qty: 1 0RF Rx Instructions: As directed (DME) FreeStyle Bea 3 Sensor Device See Rx Instructions .Route Qty: 6 3RF Rx Instructions: As directed nitroglycerin [Nitrostat] 0.4 mg Tablet, Sublingual 0.4 mg sublingual Q5MIN PRN (Reason: Chest Pain) Qty: 25 0RF isosorbide mononitrate 30 mg tablet extended release 24 hr 30 mg PO DAILY Qty: 90 1RF Rx Instructions: AM enalapril maleate 5 mg tablet 5 mg PO DAILY Qty: 90 1RF Rx Instructions: AM carvedilol 6.25 mg tablet See Rx Instructions .ROUTE .COMPLEX Qty: 180 0RF Dose Instruction: TAKE 1 TABLET BY MOUTH EVERY 12 HOURS WITH MEALS Rx Instructions: TAKE 1 TABLET BY MOUTH EVERY 12 HOURS WITH MEALS metformin 1,000 mg tablet 1,000 mg PO BID Qty: 60 2RF albuterol sulfate 90 mcg/actuation HFA aerosol inhaler See Rx Instructions .ROUTE .COMPLEX Qty: 9 0RF Dose Instruction: INHALE 2 PUFFS BY MOUTH EVERY 6 HOURS NEEDED FOR SHORTNESS OF BREATH Rx Instructions: INHALE 2 PUFFS BY MOUTH EVERY 6 HOURS NEEDED FOR SHORTNESS OF BREATH lovastatin 20 mg tablet 20 mg PO HS Qty: 30 4RF alprazolam 0.5 mg tablet 0.5 mg PO DAILY PRN (Reason: anxiety) Qty: 15 0RF Rx Instructions: Take 1/2 of a tablet daily as needed for anxiety. lithium carbonate 300 mg capsule 600 mg PO BID Qty: 180 1RF Patient Comments: Patient states he doesnt like to take it BID, takes once daily No Action carvedilol 6.25 mg tablet 6.25 mg PO BID Qty: 180 0RF Asmanex HFA 200 mcg/actuation HFA aerosol inhaler 1 puff inhalation QHS Qty: 13 0RF Date of admission: 05/28/24 15:31 Primary Care Provider: Laron Matos Admitting Provider: Kunal Frost Attending physician on admission: Kiley Wheatley Condition: Stable
== END 2024-05-29 12:56 | disposition home or self-care (01) | DRG 287 ==
LOC: ANHED 15:40 → ANHIMU 05-29 12:39 → ANHICU 05-30 15:06
PROVIDERS: Nurse Practitioner Gerontology; Admitting Provider Internal Medicine; Emergency Provider Emergency Medicine; PCP Family Medicine; Visit Provider Family Medicine
PROC: 4A023N7 Measurement of Cardiac Sampling and Pressure, Left Heart, Percutaneous Approach (ICD-10-PCS; CPT 93459; principal; 2024-05-28 15:30)
DX: T82.855A Stenosis of coronary artery stent, initial encounter (principal); I24.9 Acute ischemic heart disease, unspecified; I25.810 Atherosclerosis of coronary artery bypass graft(s) without angina pectoris; I10 Essential (primary) hypertension; E11.9 Type 2 diabetes mellitus without complications; E78.2 Mixed hyperlipidemia; F31.9 Bipolar disorder, unspecified; F41.9 Anxiety disorder, unspecified; F17.210 Nicotine dependence, cigarettes, uncomplicated; I25.2 Old myocardial infarction; Z85.07 Personal history of malignant neoplasm of pancreas; Z95.1 Presence of aortocoronary bypass graft; Z79.4 Long term (current) use of insulin
CPT/HCPCS: 36415; 71045; 74018; 80048; 80053; 82948; 83690; 83880; 84484; 85025; 85610; 85730; 93005; 93459; 96374; 99285; A9270; C1887; C1894; J1644; J1650; J2003; J2270; J2405; J7030

== ENCOUNTER 2024-06-04 15:02 | Outpatient (CLI) | payer MEDICARE, MEDICAID, SELFPAY ==
[2024-06-04 15:23] LABS: Basophils Absolute Auto 0.1 K/mm3 (0.0-0.1); Basophils Percent Auto 0.9 % (0.2-1.2); Eosinophils Absolute Auto 0.6 K/mm3 (0-0.3); Eosinophils Percent Auto 4.7 % (0-4.4); Hematocrit 47.2 % (42.0-52.0); Hemoglobin 15.4 g/dL (14.0-18.0); Immature Granulocyte Absolute 0.06 K/mm3 (0.00-0.031); Immature Granulocyte Percent A 0.5 % (0-0.5); Lymphocytes Absolute Auto 3.01 K/mm3 (0.9-3.2); Lymphocytes Percent Auto 24.2 % (18.3-44.2); Mean Corpuscular HGB Conc 32.6 g/dl (32-36); Mean Corpuscular Hemoglobin 31.6 pg (26-34); Mean Corpuscular Volume 96.9 fl (80-100); Mean Platelet Volume 9.9 fl (7.4-10.4); Monocytes Percent Auto 7.7 % (2.6-8.5); Neutrophils Absolute Auto 7.7 K/mm3 (1.3-6.7); Platelet Count Result 324 k/mm3 (150-375); Red Blood Count 4.87 M/mm3 (4.6-6.20); Red Cell Distribution Width 14.6 % (11.5-14.5); White Blood Count 12.5 K/mm3 (4.5-10.0)
[2024-06-04 15:56] LABS: Lithium 0.8 mmol/L (0.6-1.2)
[2024-06-04 16:08] LABS: Creatinine Urine 32.6 mg/dL
[2024-06-04 16:10] LABS: Iron 100 ug/dL (49-181); Potassium 4.9 mmol/L (3.4-5.0)
[2024-06-04 16:11] LABS: Microalbumin Urine Random 31.3 mg/L (0-16.7)
[2024-06-04 16:13] LABS: Percent Iron Saturation 26 % (20-50)
[2024-06-04 17:12] LABS: Folic Acid 14.5 ng/mL (2.76->20)
--- OUTSIDE RECORDS SUMMARY | 2024-06-04 17:52 | XMS_ITS | Clinical Summary ---
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 Gender Identity Not on file Sexual Orientation [...] on file Medical Devices Implanted Type Area Regional Business Manager Device Identifier Shelf Expiration Date Model / Serial / Lot Stent Stent N/A: Heart Description:At least three s tents in heart, placed approximately 2005 Insurance IDPA [facility] IDAL [facility] [place] [address] [facility] Advance Directives For more information, please contact: [phone] * Full Code (Latest Code Status on File) Date Activated Date Inactivated Comments 08/28/2020 8:06 PM 09/01/2020 7:04 PM * Full Code Date Activated Date Inactivated Comments 07/21/2020 9:19 AM 07/21/2020 4:17 PM Care Teams Plaster Molder Relationship Specialty Start Date End Date Laron Matos MD PCP - General 03/28/12 Yosvany Richardson MD [address] [place] [address] Referring Physician Gastroenterology 07/29/20 Scott Reyna MD [address] [place] [address] Consulting Physician Transplant Hepatology 09/01/20
--- OUTSIDE RECORDS SUMMARY | 2024-06-04 17:52 | XMS_ITS | Referral Summary ---
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 Gender Identity Not on file Sexual Orientation [...] on file Medical Devices Implanted Type Area Technical Designer Device Identifier Shelf Expiration Date Model / Serial / Lot Stent Stent N/A: Heart Description:At least three s tents in heart, placed approximately 2005 Insurance [facility] [address] [place] [address] [facility] [facility] Advance Directives For more information, please contact: [phone] * Full Code (Latest Code Status on File) Date Activated Date Inactivated Comments 08/28/2020 8:06 PM 09/01/2020 7:04 PM * Full Code Date Activated Date Inactivated Comments 07/21/2020 9:19 AM 07/21/2020 4:17 PM Care Teams Day Care Provider Relationship Specialty Start Date End Date Laron Matos MD PCP - General 03/28/12 Yosvany Richardson MD [address] [place] [address] Referring Physician Gastroenterology 07/29/20 Scott Reyna MD [address] [place] [address] Consulting Physician Transplant Hepatology 09/01/20
--- OUTSIDE RECORDS SUMMARY | 2024-06-04 17:52 | XMS_ITS | Clinical Summary ---
Author Organization [facility] Address [facility] [place] [address] Care Team Providers Care Slide Maker Name Role Phone Unavailable Primary Care Provider [...]
--- OUTSIDE RECORDS SUMMARY | 2024-06-04 17:52 | XMS_ITS | Continuity of Care Document ---
Author Organization [facility] Address [address] [place] [address] [address] [place] [address] Phone Care Team Providers Care Mower Operator Name Role Phone Mauro Herring Unavailable Unavailable Procedures Procedure Date Eye Exam & Treatment Advance Directives Directive Yes / No Effective Date File Name No Information Encounters Encounter Description Practice Location Reason(s) For Visit Diagnoses Date Provider Providers Copied on Encounter [facility], [address], [place], [place], [id number], [place] tel:[phone] [facility] No Information [address] [facility] [place] , [address], [place], [address], [place]. tel:[phone] Referring Provider: Laron Matos MD F, [address] [place], [address]. tel:[phone] Family History Family Member Type Diagnosis Age At Onset No Information Payers Payer name Insurance type Covered libertarian ID Authoriza tion(s) Medicaid [facility] [id number] Social History Type Description Quantity Date Captured [...]
[2024-06-04 19:25] LABS: Hemoglobin A1C 8.5 % (<5.7)
== END 2024-06-04 15:03 | disposition home or self-care (01) ==
LOC: ANHLAB 15:07
PROVIDERS: PCP Family Medicine; Visit Provider Nurse Practitioner Family
DX: F31.70 Bipolar disorder, currently in remission, most recent episode unspecified (principal); E11.65 Type 2 diabetes mellitus with hyperglycemia; D72.829 Elevated white blood cell count, unspecified; D64.9 Anemia, unspecified; E87.5 Hyperkalemia; E11.29 Type 2 diabetes mellitus with other diabetic kidney complication; R80.9 Proteinuria, unspecified
CPT/HCPCS: 36415; 80178; 82043; 82607; 82746; 83036; 83540; 83550; 84132; 85025

== ENCOUNTER 2024-06-18 14:57 | Outpatient (CLI) | payer MEDICARE, MEDICAID, SELFPAY ==
[2024-06-18 15:53] LABS: Hematocrit 49.5 % (42.0-52.0); Mean Corpuscular HGB Conc 32.3 g/dl (32-36); Mean Corpuscular Hemoglobin 31.1 pg (26-34); Mean Corpuscular Volume 96.1 fl (80-100); Mean Platelet Volume 9.9 fl (7.4-10.4); Platelet Count Result 382 k/mm3 (150-375); Red Blood Count 5.15 M/mm3 (4.6-6.20); Red Cell Distribution Width 14.4 % (11.5-14.5); White Blood Count 12.6 K/mm3 (4.5-10.0)
[2024-06-18 16:06] LABS: Lithium 0.4 mmol/L (0.6-1.2)
[2024-06-18 16:10] LABS: Anion Gap 9 mmol/L (4-12); Blood Urea Nitrogen 28 mg/dL (9-20); Calcium 10.6 mg/dL (8.4-10.2); Carbon Dioxide 28 mmol/L (22-30); Chloride 103 mmol/L (98-107); Estimated Glomerular Filt Rate > 60; Glucose 137 mg/dL (65-110); Potassium 4.4 mmol/L (3.4-5.0); Sodium 140 mmol/L (137-145)
--- OUTSIDE RECORDS SUMMARY | 2024-06-18 16:31 | XMS_ITS | Clinical Summary ---
Author Organization [facility] [address] Address [address] [place] [address] Care Team Providers Care Shirt Ironer Name Role Phone Laron Matos MD Primary Care Provider + [phone] Yosvany Richardson MD Unavailable [phone] Scott Reyna MD Unavailable [phone] Allergies Active Allergy Reactions Criticality Noted Date [...] (08/13/2020): Added automatically from request for surgery [id number] Pancreas cyst 08/06/2020 Encounters Date Type Department Care Team Description 06/05/2024 Orders Only [facility] Cardiology [address] [place] [address] Kunal Frost MD from Last 3 Months Surgical History Surgery Date Site/Laterality Comments HEART [...] on file 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 Gender Identity Not on file Sexual Orientation [...] on file Medical Devices Implanted Type Area Hotel Service Manager Device Identifier Shelf Expiration Date Model / Serial / Lot Stent Stent N/A: Heart Description:At least three s tents in heart, placed approximately 2005 Procedures Procedure Name Priority Date/Time Associated Diagnosis Comments CARDIOLOGY DOCUMENT SCAN Routine 025 12:10 PM CDT from Last 3 Months Results * Cardiology Document Scan (05/28/2024 12:10 PM CDT) Anatomical Region Laterality Modality Other Kunal Frost MD CV CARDIAC SERVICES PROCEDURES F inal Result from Last 3 Months Insurance IDPA [facility] IDPA [facility] MEDICARE ADVANTAGE [facility] MEDICARE Address: [facility] [address] [place] [address] Advance Directives For more information, please contact: [phone] * Full Code (Latest Code Status on File) Date Activated Date Inactivated Comments 08/28/2020 8:06 PM 09/01/2020 7:04 PM * Full Code Date Activated Date Inactivated Comments 07/21/2020 9:19 AM 07/21/2020 4:17 PM Care Teams Shirt Ironer Relationship Specialty Start Date End Date Laron Matos MD PCP - General 03/28/12 Yosvany Richardson MD [address] [facility] [address] [place] [address] Referring Physician Gastroenterology 07/29/20 Scott Reyna MD [address] [facility] [address] [place] [address] Consulting Physician Transplant Hepatology 09/01/20
--- OUTSIDE RECORDS SUMMARY | 2024-06-18 16:31 | XMS_ITS | Continuity of Care Document ---
Author Organization [facility] Address [address] [place] [address] [address] [place] [address] Phone Care Team Providers Care Factory Process Workers Name Role Phone Mauro Herring Unavailable Unavailable Procedures Procedure Date Eye Exam & Treatment Advance Directives Directive Yes / No Effective Date File Name No Information Encounters Encounter Description Practice Location Reason(s) For Visit Diagnoses Date Provider Providers Copied on Encounter [facility], [address], [place], [place], [id number], [place] tel:[phone] [facility] No Information [address] [facility] [address] , [address], [place], [address], [place]. tel:[phone] Referring Provider: Laron Matos MD F, [address] [place], [address]. tel:[phone] Family History Family Member Type Diagnosis Age At Onset No Information Payers Payer name Insurance type Covered republican ID Authoriza tion(s) Medicaid [facility] [id number] Social History Type Description Quantity Date Captured [...]
--- OUTSIDE RECORDS SUMMARY | 2024-06-18 16:31 | XMS_ITS | Referral Summary ---
Author Organization [facility] [address] Address [address] [place] [address] Care Team Providers Care Civil Draftsman Name Role Phone Laron Matos MD Primary Care Provider [phone] Yosvany Richardson MD Unavailable [phone] Scott Reyna MD Unavailable [phone] Encounters Date Type Department Care Team Description 06/05/2024 Orders Only [facility] Cardiology [address] [place] [address] Kunal Frost MD from Last 3 Months Allergies Active Allergy Reactions Criticality Noted Date [...] (08/13/2020): Added automatically from request for surgery [id number] Pancreas cyst 08/06/2020 Social History Tobacco Use [...] on file 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 Gender Identity Not on file Sexual Orientation [...] on file Medical Devices Implanted Type Area Fashion Marketer Device Identifier Shelf Expiration Date Model / [...] Result from Last 3 Months Insurance [facility] IDPA [facility] MEDICARE ADVANTAGE Advance Directives For more information, please contact: [phone] * Full Code (Latest Code Status on File) Date Activated Date Inactivated Comments 08/28/2020 8:06 PM 09/01/2020 7:04 PM * Full Code Date Activated Date Inactivated Comments 07/21/2020 9:19 AM 07/21/2020 4:17 PM Care Teams Civil Draftsman Relationship Specialty Start Date End Date Laron Matos MD PCP - General 03/28/12 Yosvany Richardson MD [address] [facility] [address] [place], [place] [id number] Referring Physician Gastroenterology 07/29/20 Scott Reyna MD [address] [facility] [address] [place], [place] [id number] Consulting Physician Transplant Hepatology 09/01/20
--- OUTSIDE RECORDS SUMMARY | 2024-06-18 16:31 | XMS_ITS | Clinical Summary ---
Author Organization [facility] Address [id number] [place] [address] Care Team Providers Care Pharmacy District Manager Name Role Phone Unavailable Primary Care Provider [...]
[2024-06-18 17:00] LABS: Vitamin B12 > 1000.0 pg/mL (239-931)
== END 2024-06-18 14:58 | disposition home or self-care (01) ==
PROVIDERS: PCP Family Medicine
DX: F31.9 Bipolar disorder, unspecified (principal)
CPT/HCPCS: 36415; 80048; 80178; 82607; 84443; 85027

== ENCOUNTER 2024-07-23 09:13 | Outpatient (CLI) | payer MEDICARE, MEDICAID, SELFPAY ==
--- NOTE | ~2024-07-23 | MR_ITS ---
MRI of the brain Clinical History: Amnesia Technique: Axial and sagittal T1-weighted images were acquired. These were followed by axial T2-weigh collin, diffusion weighted, gradient, and FLAIR images. Findings: No acute infarct, acute intracranial hemorrhage, or mass lesion seen. There are small chron ic lacunar infarcts in the bilateral basal ganglia/periventricular white matter. There are additional moderate chronic white matter changes in the periventricular white matter bilaterally and in the cer ebellum. Ventricles and subarachnoid spaces are otherwise unremarkable. Orbits are unremarkable. There is muco héctor thickening in the bilateral sigmoid sinuses, left maxillary sinus, and bilateral ethmoid air cell s. Bilateral mastoids are clear. Major intracranial flow voids are grossly intact. Sagittal midline structures are intact. IMPRESSION: No acute intracranial abnormality. Small chronic lacunar infarcts and mild to moderate chronic microvascular ischemic change, as detaile d above. Sinus disease, as above. Reviewed, dictated and finalized at [facility]. IMPRESSION: No acute intracranial abnormality. Small chronic lacunar infarcts and mild to moderate chronic microvascular ische danielle change, as detailed above. Sinus disease, as above.
--- OUTSIDE RECORDS SUMMARY | 2024-07-23 09:44 | XMS_ITS | Referral Summary ---
Author Organization [facility] [address] Address [address] [place] [address] Care Team Providers Care Facilities Maintenance Engineer Name Role Phone Laron Matos MD Primary Care Provider Yosvany Richardson MD Unavailable [phone] Scott Reyna MD Unavailable [phone] Encounters Date Type Department Care Team Description 06/05/2024 Orders Only [facility] Medical [facility] Cardiology [address] [place] [address] Kunal Frost MD from Last [...] (08/13/2020): Added automatically from request for surgery [id number] Pancreas cyst 08/06/2020 Social History Tobacco Use [...] on file 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 Gender Identity Not on file Sexual Orientation [...] on file Medical Devices Implanted Type Area Head Automatic Sawyer Device Identifier Shelf Expiration Date Model / [...] Result from Last 3 Months Insurance IDPA [facility] IDPA [facility] MEDICARE ADVANTAGE Advance Directives For more information, please contact: [phone] * Full Code (Latest Code Status on File) Date Activated Date Inactivated Comments 08/28/2020 8:06 PM 09/01/2020 7:04 PM * Full Code Date Activated Date Inactivated Comments 07/21/2020 9:19 AM 07/21/2020 4:17 PM Care Teams Facilities Maintenance Engineer Relationship Specialty Start Date End Date Laron Matos MD PCP - General 03/28/12 Yosvany Richardson MD [address] [facility] [address] [place], [place] [id number] Referring Physician Gastroenterology 07/29/20 Scott Reyna MD [address] [facility] [address] [place], [place] [phone] Consulting Physician Transplant Hepatology 09/01/20
--- OUTSIDE RECORDS SUMMARY | 2024-07-23 09:44 | XMS_ITS | Clinical Summary ---
Author Organization [facility] [address] Address [address] [place] [address] Care Team Providers Care Implementation Specialist Name Role Phone Laron Matos MD Primary Care Provider + [phone] Yosvany Richardson MD Unavailable [phone] Scott Reyna MD Unavailable [phone] Allergies Active Allergy Reactions Criticality Noted Date [...] (08/13/2020): Added automatically from request for surgery [id number] Pancreas cyst 08/06/2020 Encounters Date Type Department Care Team Description 06/05/2024 Orders Only [facility] Medical [facility] Cardiology [address] [place] [address] Kunal Frost MD from Last [...] on file 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 Gender Identity Not on file Sexual Orientation [...] on file Medical Devices Implanted Type Area [employer] Reading Teacher Device Identifier Shelf Expiration Date Model / [...] Result from Last 3 Months Insurance IDPA [facility] IDPA [facility] MEDICARE ADVANTAGE [facility] MEDICARE Address: [facility] [address] [place] [address] Advance Directives For more information, please contact: [phone] * Full Code (Latest Code Status on File) Date Activated Date Inactivated Comments 08/28/2020 8:06 PM 09/01/2020 7:04 PM * Full Code Date Activated Date Inactivated Comments 07/21/2020 9:19 AM 07/21/2020 4:17 PM Care Teams Implementation Specialist Relationship Specialty Start Date End Date Laron Matos MD PCP - General 03/28/12 Yosvany Richardson MD [address] [facility] [address] [place] [address] Referring Physician Gastroenterology 07/29/20 Scott Reyna MD [address] [facility] [address] [place] [address] Consulting Physician Transplant Hepatology 09/01/20
--- OUTSIDE RECORDS SUMMARY | 2024-07-23 09:44 | XMS_ITS | Clinical Summary ---
Author Organization [facility] Address [facility] [place] [address] Care Team Providers Care Pelt Shearer Name Role Phone Unavailable Primary Care Provider [...] Td Vaccines ( 1 - Tdap) 10/07/1975 Pneumococcal Vaccine: 50+ Ye ars (1 of 1 - PCV) 2006 Zoster Vaccines (1 of 2) 2006 COVID-19 Vaccine ( - 2023-2 5 season) 2023 RSV Immunization or 60+ Years (1 [...]
--- OUTSIDE RECORDS SUMMARY | 2024-07-23 09:44 | XMS_ITS | Continuity of Care Document ---
Author Organization [facility] Address [address] [place] [address] [address] [place] [address] Phone Care Team Providers Care Silverware Assembler Name Role Phone Mauro Herring Unavailable Unavailable Procedures Procedure Date Eye Exam & Treatment Advance Directives Directive Yes / No Effective Date File Name No Information Encounters Encounter Description Practice Location Reason(s) For Visit Diagnoses Date Provider Providers Copied on Encounter [facility], [address], [place], [place], [id number], [place] tel:[phone] [facility]3] No Information [address] , [address], [place], [address], [place]. tel:[phone] Referring Provider: Laron Matos MD F, [address] [place], [address]. tel:[phone] Family History Family Member Type Diagnosis Age At Onset No Information Payers Payer name Insurance type Covered republican ID Authoriza tion(s) Medicaid [facility] [id number] Social History Type Description Quantity Date Captured [...]
== END 2024-07-23 09:14 | disposition home or self-care (01) ==
PROVIDERS: PCP Family Medicine; Visit Provider Family Medicine
DX: R41.3 Other amnesia (principal); J32.2 Chronic ethmoidal sinusitis; J32.0 Chronic maxillary sinusitis; J32.3 Chronic sphenoidal sinusitis; Z86.73 Personal history of transient ischemic attack (TIA), and cerebral infarction without residual deficits
CPT/HCPCS: 70551

== ENCOUNTER 2024-09-18 01:08 | Emergency (ER) | payer MEDICARE, MEDICAID, SELFPAY ==
[2024-09-18] VITALS (28 sets, daily range): BP systolic 103–139; BP diastolic 63–80; PULSE 64–75; RESP 14–28; TEMP 36.7; O2SAT 94–100
--- NOTE | ~2024-09-18 | XR_ITS ---
Portable chest x-ray Comparison: None Clinical History: Hypoglycemia Findings: Lungs are clear, without focal consolidation or pleural effusion. Cardiomediastinal silho uette is unremarkable, status post median sternotomy. Bones and soft tissues are unremarkable. Impression: Clear lungs. Reviewed, dictated and finalized at location . Impression: Clear lungs.
--- OUTSIDE RECORDS SUMMARY | 2024-09-18 03:06 | XMS_ITS | Referral Summary ---
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 Gender Identity Not on file Sexual Orientation [...] 12:51 PM CDT Height 177.8 cm (5' 10) 08/21/2020 9:15 AM CDT Body Mass Index 21.26 08/21/2020 9:15 AM CDT Plan of Treatment Not on file Medical Devices Implanted Type Area Wire Temperer Device Identifier Shelf Expiration Date Model / Serial / Lot Stent Stent N/A: Heart Description:At least three s tents in heart, placed approximately 2005 Insurance [facility] IDPA [facility] MEDICARE ADVANTAGE Advance Directives For more information, please contact: [phone] * Full Code (Latest Code Status on File) Date Activated Date Inactivated Comments 08/28/2020 8:06 PM 09/01/2020 7:04 PM * Full Code Date Activated Date Inactivated Comments 07/21/2020 9:19 AM 07/21/2020 4:17 PM Care Teams Cobol Application Developer Relationship Specialty Start Date End Date Laron Matos MD PCP - General 03/28/12 Yosvany Richardson MD [address] [facility] [address] [place] [address] Referring Physician Gastroenterology 07/29/20 Scott Renya MD [address] [facility] [address] [place] [address] Consulting Physician Transplant Hepatology 09/01/20
--- OUTSIDE RECORDS SUMMARY | 2024-09-18 03:06 | XMS_ITS | Encounter Summary ---
Author Organization [facility] Address [address] [place] [address] Care Team Providers Care Flight Engineer Helicopter Name Role Phone Laron Matos MD Primary Care Provider [phone] Yosvany Richardson MD Unavailable Scott Reyna MD Unavailable [phone] Encounter Details Date Type Department Care Team (Late Contact Info) Description 06/25/2017 Orders Only [facility] Health Information Management [address] [place] [address] Scanning, Provider Social History Tobacco Use Types Packs/Day Years Used Date Smoking Tobacco: Former Cigarettes Q uit: 03/21/2011 Alcohol Use Standard Drinks/Week Comments No 0 (1 standard drink = 0.6 oz pur e alcohol) Sex and Gender Information Value Date Recorded Sex Assigned at Not on file 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 Gender Identity Not on file Sexual Orientation Not on file documented as of this encounter Plan of Treatment Not on file documented as of this encounter Procedures Procedure Name Priority Date/Time Associated Diagnosis Comments CARDIOLOGY DOCUMENT SCAN 06/25/2017 documented in this encounter Results * Cardiology Document Scan (06/25/2017) Anatomical Region Laterality Modality Other us Provider Scanning CV CARDIAC SERVICES PROCEDURES Final Result documented in this encounter Visit Diagnoses Not on filedocumented in this encounter Care Teams Flight Engineer Helicopter Relationship Specialty Start Date End Date Laron Matos MD PCP - General 03/28/12 Yosvany Richardson MD [address] [facility] [address] [address] [place] [address] Referring Physician Gastroenterology 07/29/20 Scott Reyna MD [address] [facility] [address] [place] [address] Consulting Physician Transplant Hepatology 09/01/20 documented as of this encounter
--- OUTSIDE RECORDS SUMMARY | 2024-09-18 03:06 | XMS_ITS | Clinical Summary ---
Author Organization [facility] Address [facility] [place] [address] Care Team Providers Care Cooperer Name Role Phone Unavailable Primary Care Provider [...]
--- OUTSIDE RECORDS SUMMARY | 2024-09-18 03:06 | XMS_ITS | Continuity of Care Document ---
Author Organization [facility] Address [address] [place] [address] [address] [place] [address] Phone Care Team Providers Care Bisque Finisher Name Role Phone Mauro Herring Unavailable Unavailable Procedures Procedure Date Eye Exam & Treatment Advance Directives Directive Yes / No Effective Date File Name No Information Encounters Encounter Description Practice Location Reason(s) For Visit Diagnoses Date Provider Providers Copied on Encounter [facility], [address], [place], [place], [id number], [place] tel:[phone] [facility] No Information [address] [facility] [address] , [address], [place], [address], [place]. tel:[phone] Referring Provider: Laron Matos MD F, [address] [place], [address]. tel:[phone] Family History Family Member Type Diagnosis Age At Onset No Information Payers Payer name Insurance type Covered green party ID Authoriza tion(s) Medicaid [facility] [id number] Social History Type Description Quantity Date Captured [...]
--- OUTSIDE RECORDS SUMMARY | 2024-09-18 03:06 | XMS_ITS | Clinical Summary ---
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 Gender Identity Not on file Sexual Orientation [...] on file Medical Devices Implanted Type Area Rougher Merchant Mill Device Identifier Shelf Expiration Date Model / Serial / Lot Stent Stent N/A: Heart Description:At least three s tents in heart, placed approximately 2005 Insurance IDPA [facility] OTHER Address: ATTN: CLAIMS DEPT [address] [place] [address] [facility] MEDICARE ADVANTAGE Advance Directives For more information, please contact: [phone] * Full Code (Latest Code Status on File) Date Activated Date Inactivated Comments 08/28/2020 8:06 PM 09/01/2020 7:04 PM * Full Code Date Activated Date Inactivated Comments 07/21/2020 9:19 AM 07/21/2020 4:17 PM Care Teams Associate Brand Manager Relationship Specialty Start Date End Date Laron Matos MD PCP - General 03/28/12 Yosvany Richardson MD [address] [place] [address] Referring Physician Gastroenterology 07/29/20 Scott Reyna MD [address] [facility] [address] [place] [address] Consulting Physician Transplant Hepatology 09/01/20
--- NOTE | 2024-09-18 03:42 | ED_ITS ---
HPI - Recheck/Abnormal Lab/Rx General Chief Complaint: Recheck/Abnormal Lab/Rx Stated Complaint: LOW BLOOD SUGAR Time Seen by Provider: 09/18/24 02:45 Source: patient and RN notes reviewed History of Present Illness HPI narrative: Patient presents with report of low blood sugar appeared he was found nearly unresponsive. Initial point of care glucose was 24 and intervention was performed. Repeat point of care was 113 mg/dL and patient had return to alert oriented x4 which is his baseline. He was provided a turkey sandwich and apple juice while in the emergency department. He reports that he took his long- acting insulin at 10:00 p.m. and had eaten dinner at 5:30 p.m. but believes perhaps it was not enough. Unknown name or units initially of insulin when asked. Patient denies any pain, cough, diarrhea Related Data Home Medications ?Medication ?Instructions ?Recorded ?Confirmed ?Last Taken ?Type aspirin 81 mg tablet,delayed 81 mg PO DAILY 07/15/24 09/06/24 Unknown History release lipase 60,000-protease See Rx Instructions PO .COMPLEX 09/06/24 09/06/24 Unknown History 189,600-amylase 252,600 unit capsule, delay rel (Zenpep) Allergies Allergy/AdvReac Type Severity Reaction Status Date / Time ciprofloxacin (From Cipro) Allergy Mild Rash Verified 09/06/24 07:36 Sulfa (Sulfonamide Allergy Mild rash Verified 09/06/24 07:36 Antibiotics) codeine AdvReac Mild nausea Verified 09/06/24 07:36 PMF Past Medical History Medical History Hypertensive heart disease without congestive heart failure Diabetes mellitus with microalbuminuria Diabetes mellitus with hyperglycemia BMI (body mass index) 20.0-29.9 Diabetes Chronic pancreatitis COVID Diabetes type 2, controlled BMI 21.0-21.9, adult Pancreatic cancer Colonoscopy planned Bowel habit changes Weight loss Anxiety Bipolar disorder, unspecified Essential hypertension Mixed hyperlipidemia Old [place] (myocardial infarction) Surgical History Surgical History H/O Whipple procedure History of splenectomy History of pancreatectomy History of endoscopy S/P CABG (coronary artery bypass graft) 6 vessel Family History Family History Father Hypertension Cerebrovascular accident Family history of coronary artery disease Family history of cardiovascular disease CHF (congestive heart failure) Mother Family history of diabetes mellitus in first degree relative CHF (congestive heart failure) Diabetes mellitus Sibling Diabetes mellitus Kidney failure Sibling Hypertension Blindness and low vision Other Family history of malignant neoplasm Social History Social History Social History: He lives with his and daughter and is raising his grandson. He has 4 children. 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 He still continues to smoke a pack a cigarettes a day. He denies any alcohol marijuana or illicit drugs. His is the durable power securities attorney for healthcare. Code status full code Smoking packs per day: 1 Smoking cigarettes per day: 20.0 Years smoked: 51 Smoking pack-years: 51.00 Smoking status: Current every day smoker Tobacco type: cigarettes Second hand tobacco smoke exposure: Yes Alcohol intake: never Substance use: never Substance use type: does not use Do You Feel Safe in your Home?: Yes Lack of Transportation: No Lack of Food: Never True Current Housing: I Have Housing Concerned About Future Housing: No Difficulty Paying Gas/Electric Bills: No Difficulty Paying for Meds: No Currently Unemployed: No Education: High School Diploma/GED Difficulty w/ Childcare or Family Care: No Living arrangements: with family Additional living arrangements comments: with daughter Occupation/Education: retired 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 HEAD: Normocephalic, atraumatic. EYES: Non injected; grossly symmetric ENT: Nares clear, no rhinorrhea or epistaxis. Gross auditory acuity intact. NECK: Supple. No meningismus. CHEST: Speaking in full sentences. No respiratory distress. HEART: Regular rate and rhythm. . ABDOMEN: Soft, nondistended. EXTREMITIES: Normal range of motion. No lower extremity edema. SKIN: Warm, dry, no rash. NEURO: No focal deficits. Alert and oriented. Somnolent on my exam but protecting his airway. Answering questions but falling asleep quickly. Following commands. PSYCH: Congruent mood and affect. Course Vital Signs Vital signs: Vital Signs Temperature 98.1 F 09/18/24 01:11 Pulse Rate 65 09/18/24 01:11 Respiratory Rate 25 H 09/18/24 01:11 Blood Pressure 103/69 09/18/24 01:11 Pulse Oximetry 95 09/18/24 01:11 Oxygen Delivery Room Air 09/18/24 01:11 Temperature 98.1 F 09/18/24 01:11 Pulse Rate 70 09/18/24 06:00 Respiratory Rate 14 09/18/24 06:00 Blood Pressure 139/80 09/18/24 05:31 Pulse Oximetry 97 09/18/24 06:00 Oxygen Delivery Room Air 09/18/24 01:11 MDM - Recheck/Abnormal Lab/Rx MDM Narrative Medical decision making narrative: Patient presents after being found nearly unresponsive and found a blood glucose of 4. He has a history of diabetes mellitus. Intervention was administered unclear exactly what. With this was reported the patient became x4 point glucose of 113 mg/dL upon arrival. In the emergency department he is afebrile with vital signs notable for initially tachypnea resolved on repeat. He had multiple normal point of care readings while awaiting further assessment. When patient was initially assessed by me he seemed very somnolent however he was awoken from sleep. He was able to answer some basic questions however and an immediate POC check is 196mg/dL. Blood sugar has held steady without recurrent hypoglycemia on multiple checks. Mild leukocytosis No obvious infectious source and patient had no such complaints that would indicate this. Patient is reassessed at 5:45 a.m.. He is sleeping and when awoken and he is able to converse a bit though says, I'm tired. Daughter has arrived and at this time I did reassess patient at 6:00 a.m. and we spent extensive time at bedside. He is much more alert oriented now, engaged in conversation. He states he takes 26 units of his long-acting but is not on a short-acting. He is also on metformin and dapagliflozin. He is also on an enzyme pill. He states Dr. Hughes did increase his long-acting from 20 units at night 26 units although this change was not made recently but rather several months ago. We discussed the importance of eating full meals to correlate with the insulin. Patient had had chicken breast and vegetables for dinner but per the daughter he stays very active and is always building something or working on something or tingling with something. For example, yesterday he was busy cleaning the fish tank. Stable for discharge. Lab Data Attestation: I reviewed the patient's lab results. Lab results narrative: Glucosuria 09/18/24 04:08 09/18/24 04:08 Labs: Lab Results 09/18/24 09/18/24 09/18/24 Range/Units 01:15 02:09 03:02 WBC (4.5-10.0) K/mm3 RBC (4.6-6.20) M/mm3 Hgb (14.0-18.0) g/dL Hct (42.0-52.0) % MCV (80-100) fl MCH (26-34) pg MCHC (32-36) g/dl RDW (11.5-14.5) % Plt Count (150-375) k/mm3 MPV (7.4-10.4) fl Immature Gran % (Auto) (0-0.5) % Neut % (Auto) (45.5-73.1) % Lymph % (Auto) (18.3-44.2) % Stearns % (Auto) (2.6-8.5) % Eos % (Auto) (0-4.4) % Baso % (Auto) (0.2-1.2) % Lymph # (Auto) (0.9-3.2) K/mm3 Stearns # (Auto) (0.1-0.6) K/mm3 Eos # (Auto) (0-0.3) K/mm3 Baso # (Auto) (0.0-0.1) K/mm3 Abs Immat Gran (auto) (0.00-0.031) K/mm3 Absolute Neuts (auto) (1.3-6.7) K/mm3 Absolute Nucleated RBC (0.0-0.012) K/mm3 Nucleated RBC % (0.0-0.2) % Sodium (137-145) mmol/L Potassium (3.4-5.0) mmol/L Chloride (98-107) mmol/L Carbon Dioxide (22-30) mmol/L Anion Gap (4-12) mmol/L BUN (9-20) mg/dL Creatinine (0.7-1.3) mg/dL Estim Creat Clear Calc Estimated GFR (59 - ) Glucose (65-110) mg/dL POC Capillary Glucose 113 H 108 H 190 H (65-105) mg/dl Calcium (8.4-10.2) mg/dL Total Bilirubin (0.2-1.3) mg/dL AST (17-59) U/L ALT (6-50) U/L Alkaline Phosphatase (38-126) U/L Total Protein (6.3-8.2) g/dL Albumin (3.5-5.1) g/dL Urine Color (Yellow) Urine Appearance (Clear) Urine pH (5.0-9.0) Ur Specific [place] (1.001-1.035) Urine Protein (Negative) mg/dL Urine Glucose (UA) (Negative) mg/dL Urine Ketones (Negative) mg/dL Ur Blood (Man) (Negative) Urine Nitrate (Negative) Urine Bilirubin (Negative) Urine Urobilinogen (<2.0) mg/dL Leukocyte Esterase Rfl (Negative) GERALDINE/UL 09/18/24 09/18/24 09/18/24 Range/Units 04:04 04:08 04:33 WBC 11.6 H (4.5-10.0) K/mm3 RBC 4.40 L (4.6-6.20) M/mm3 Hgb 13.5 L (14.0-18.0) g/dL Hct 42.6 (42.0-52.0) % MCV 96.8 (80-100) fl MCH 30.7 (26-34) pg MCHC 31.7 L (32-36) g/dl RDW 15.0 H (11.5-14.5) % Plt Count 321 (150-375) k/mm3 MPV 9.8 (7.4-10.4) fl Immature Gran % (Auto) 0.4 (0-0.5) % Neut % (Auto) 73.5 H (45.5-73.1) % Lymph % (Auto) 17.7 L (18.3-44.2) % Stearns % (Auto) 5.9 (2.6-8.5) % Eos % (Auto) 1.8 (0-4.4) % Baso % (Auto) 0.7 (0.2-1.2) % Lymph # (Auto) 2.06 (0.9-3.2) K/mm3 Stearns # (Auto) 0.7 H (0.1-0.6) K/mm3 Eos # (Auto) 0.2 (0-0.3) K/mm3 Baso # (Auto) 0.1 (0.0-0.1) K/mm3 Abs Immat Gran (auto) 0.05 H (0.00-0.031) K/mm3 Absolute Neuts (auto) 8.5 H (1.3-6.7) K/mm3 Absolute Nucleated RBC 0.000 (0.0-0.012) K/mm3 Nucleated RBC % 0.0 (0.0-0.2) % Sodium 136 L (137-145) mmol/L Potassium 3.9 (3.4-5.0) mmol/L Chloride 102 (98-107) mmol/L Carbon Dioxide 25 (22-30) mmol/L Anion Gap 9 (4-12) mmol/L BUN 32 H (9-20) mg/dL Creatinine 1.07 (0.7-1.3) mg/dL Estim Creat Clear Calc Not Reportable Estimated GFR > 60 (59 - ) Glucose 189 H (65-110) mg/dL POC Capillary Glucose 196 H (65-105) mg/dl Calcium 10.4 H (8.4-10.2) mg/dL Total Bilirubin 0.4 (0.2-1.3) mg/dL AST 35 (17-59) U/L ALT 47 (6-50) U/L Alkaline Phosphatase 62 (38-126) U/L Total Protein 7.1 (6.3-8.2) g/dL Albumin 4.2 (3.5-5.1) g/dL Urine Color Yellow (Yellow) Urine Appearance Clear (Clear) Urine pH 6.0 (5.0-9.0) Ur Specific [place] 1.022 (1.001-1.035) Urine Protein Negative (Negative) mg/dL Urine Glucose (UA) 3+ H (Negative) mg/dL Urine Ketones Negative (Negative) mg/dL Ur Blood (Man) Negative (Negative) Urine Nitrate Negative (Negative) Urine Bilirubin Negative (Negative) Urine Urobilinogen 0.2 (<2.0) mg/dL Leukocyte Esterase Rfl Negative (Negative) GERALDINE/UL Imaging Data Attestation: I personally reviewed and interpreted this imaging study as follows: My impression: Sternotomy wires, diffuse scarring verses normal but poor penetration, suspect the latter given the very symmetric appearance Radiologist's impression: Impressions Chest X-Ray 09/18/24 05:46 Impression: Clear lungs. Discharge Plan Discharge Clinical Impression: Leukocytosis, Hypoglycemia due to insulin, Glucosuria Patient Disposition: Home Condition: Stable Instructions: Antibiotic Form, Hypoglycemia in a Person with Diabetes (DC), What to Do if Your Blood Sugar is Low (ED) Additional Instructions: It is important that you take your medications including insulin as prescribed but also that you eat appropriately when doing so. Follow-up with primary care physician. Return to the emergency department any new or worsening symptoms. Patient Language: Amharic Prescriptions: No Action (DME) FreeStyle Precision Brian Strips Strip See Rx Instructions .Route Qty: 50 2RF Rx Instructions: As directed to calibrate yoseph 3 Zenpep 60,000-189,600- 252,600 unit capsule,delayed release(DR/EC) See Rx Instructions PO .COMPLEX Rx Instructions: 2 with meals and 1 with snack orally; administer with meals and/or snacks (DME) FreeStyle Yoseph 3 [place] Misc See Rx Instructions .Route Qty: 1 0RF Rx Instructions: As directed (DME) FreeStyle Yoseph 3 Sensor Device See Rx Instructions .Route Qty: 6 3RF Rx Instructions: As directed insulin glargine [Lantus Solostar U-100 Insulin] 100 unit/mL (3 mL) insulin pen 26 unit subcut QPM Qty: 15 2RF aspirin 81 mg tablet,delayed release (DR/EC) 81 mg PO DAILY lithium carbonate 300 mg capsule 600 mg PO BID Qty: 180 1RF Patient Comments: Patient states he doesnt like to take it BID, takes once daily metformin 1,000 mg tablet See Rx Instructions .ROUTE .COMPLEX Qty: 180 0RF Dose Instruction: Take 1 tablet by mouth twice daily Rx Instructions: Take 1 tablet by mouth twice daily dapagliflozin propanediol [Farxiga] 10 mg tablet 10 mg PO QAM Qty: 90 3RF lovastatin 20 mg tablet 20 mg PO HS Qty: 30 4RF enalapril maleate 5 mg tablet 5 mg PO DAILY Qty: 90 1RF Rx Instructions: AM insulin lispro [Humalog KwikPen Insulin] 100 unit/mL insulin pen 1 sliding scale dose subcut USEASDIRECTD Qty: 15 1RF Rx Instructions: Dose according to sliding scale after checking glucose. Max dose 80units daily alprazolam 0.5 mg tablet 0.5 mg PO DAILY PRN (Reason: anxiety) Qty: 15 0RF Rx Instructions: Take 1/2 of a tablet daily as needed for anxiety. carvedilol 6.25 mg tablet 6.25 mg PO BID Qty: 180 0RF isosorbide mononitrate 30 mg tablet extended release 24 hr 30 mg PO DAILY Qty: 90 1RF Rx Instructions: AM Follow-up/Referrals: Laron Matos MD [Primary Care Provider] - Stand Alone Forms: Work/School Release IP Time of Disposition: 05:51
[2024-09-18 04:24] LABS: Hematocrit 42.6 % (42.0-52.0); Hemoglobin 13.5 g/dL (14.0-18.0); Immature Granulocyte Percent A 0.4 % (0-0.5); Lymphocytes Absolute Auto 2.06 K/mm3 (0.9-3.2); Mean Corpuscular HGB Conc 31.7 g/dl (32-36); Mean Corpuscular Hemoglobin 30.7 pg (26-34); Mean Corpuscular Volume 96.8 fl (80-100); Nucleated Red Blood Cells Absolute Auto 0.000 K/mm3 (0.0-0.012); Nucleated Red Blood Cells Perc 0.0 % (0.0-0.2); Platelet Count Result 321 k/mm3 (150-375); Red Blood Count 4.40 M/mm3 (4.6-6.20); White Blood Count 11.6 K/mm3 (4.5-10.0)
--- NOTE | 2024-09-18 04:35 | PC.NURSE ---
Pt stood at bedside to use urinal. Pt still A&O x 4, although sleepy. Pt yawning. Pt having full conversation with RN without drifting off to sleep.
[2024-09-18 04:38] LABS: Alanine Aminotransferase 47 U/L (6-50); Albumin Level 4.2 g/dL (3.5-5.1); Alkaline Phosphatase 62 U/L (38-126); Anion Gap 9 mmol/L (4-12); Aspartate Amino Transferase 35 U/L (17-59); Bilirubin,Total 0.4 mg/dL (0.2-1.3); Blood Urea Nitrogen 32 mg/dL (9-20); Calcium 10.4 mg/dL (8.4-10.2); Carbon Dioxide 25 mmol/L (22-30); Chloride 102 mmol/L (98-107); Estimated Glomerular Filt Rate > 60; Glucose 189 mg/dL (65-110); Potassium 3.9 mmol/L (3.4-5.0); Sodium 136 mmol/L (137-145); Total Protein 7.1 g/dL (6.3-8.2)
[2024-09-18 04:47] LABS: Add Urine Microscopic? NO; Appearance Urine Clear (Clear); Glucose Urine UA 3+ mg/dL (Negative); Leukocyte Esterase Ur Negative LEU/UL (Negative); Nitrate Urine Negative (Negative); Specific Grav Ur 1.022 (1.001-1.035)
== END 2024-09-18 06:28 | disposition home or self-care (01) ==
PROVIDERS: Emergency Provider Student in an Organized Health Care Education/Training Program; PCP Family Medicine
DX: E11.649 Type 2 diabetes mellitus with hypoglycemia without coma (principal); D72.829 Elevated white blood cell count, unspecified; I25.2 Old myocardial infarction; I11.9 Hypertensive heart disease without heart failure; E78.2 Mixed hyperlipidemia; K86.1 Other chronic pancreatitis; F31.9 Bipolar disorder, unspecified; F17.210 Nicotine dependence, cigarettes, uncomplicated; Z86.16 Personal history of COVID-19; Z90.81 Acquired absence of spleen; Z90.410 Acquired total absence of pancreas; Z95.1 Presence of aortocoronary bypass graft; Z79.4 Long term (current) use of insulin; Z79.82 Long term (current) use of aspirin; Z79.899 Other long term (current) drug therapy; Z79.84 Long term (current) use of oral hypoglycemic drugs
CPT/HCPCS: 36415; 71045; 80053; 81003; 82948; 85025; 99283

== ENCOUNTER 2024-11-05 12:45 | Outpatient (CLI) | payer MEDICARE, MEDICAID, SELFPAY ==
--- NOTE | 2024-11-05 12:48 | ECHO_ITS ---
Patient Info Name: Vic Oro Age: 69 years : 1955 Gender: Male Ht: 70 in Wt: 150 lbs BSA: 1.83 m2 HR: 69 bpm BP: 171 / 102 mmHg Heart Rhythm: Sinus Rhythm Technical Quality: Good Exam Date: 11/05/2024 12:57 PM Patient Status: O Admit Date: 11/05/2024 Exam Type: CA echo doppler color flow Complete two-dimensional, color flow and Doppler transthoracic echocardiogram is performed. Reading Tutor: Aixa Huff Attending Provider: Baltazar Lang DO Summary 1. Complete two-dimensional, color flow and Doppler transthoracic echocardiogram is performed. 2. Left ventricular chamber dimension is normal. 3. Left ventricular systolic function is normal, estimated at 60-65. 4. The left ventricular diastolic function is grade I diastolic dysfunction. 5. E/e' 9 is minimally elevated. 6. Left atrial chamber dimension is mildly enlarged. 7. There is mild mitral valve regurgitation. 8. There is trace tricuspid valve regurgitation. 9. No pulmonary hypertension, estimated pulmonary arterial systolic pressure is 26 mmHg. 10. There is trace pulmonic regurgitation. Left Ventricle E/e' 9 is minimally elevated. Left ventricular chamber dimension is normal. Left ventricular systolic function is normal, estimated at 60-65. The left ventricular diastolic function is grade I diastolic dysfunction. Right Ventricle Right ventricular chamber dimension is normal. Right ventricular systolic function is normal and with normal TAPSE 2.0 cm. Left Atria Left atrial chamber dimension is mildly enlarged. Right Atria Right atrial chamber dimension is normal. Aortic Valve The aortic valve is trileaflet. There is no aortic valve stenosis. There is no aortic valve regurgitation. Pulmonic Valve There is trace pulmonic regurgitation. Mitral Valve There is no mitral valve stenosis. There is mild mitral valve regurgitation. Tricuspid Valve There is trace tricuspid valve regurgitation. No pulmonary hypertension, estimated pulmonary arterial systolic pressure is 26 mmHg. Pericardium/Pleural There is no pericardial effusion. Inferior Vena Cava Normal inferior vena cava with >50% collapse upon inspiration consistent with normal right atrial pressure, 5 mmHg. Aorta The aortic root size at the sinus of Valsalva is normal. Left Ventricular Outflow Tract Name Value Normal LVOT 2D LVOT Diameter 2.2 cm LVOT Doppler LVOT Peak Velocity 90 cm/s LVOT Peak Gradient 3 mmHg LVOT Mean Gradient 2 mmHg LVOT VTI 17 cm LVOT VTI/AV VTI Ratio 0.7 LVOT Stroke Volume 64 ml LVOT CO 4.1 l/min LVOT CI 2.3 l/min/m2 Pulmonic Valve Name Value Normal RVOT Doppler RVOT Peak Velocity 63 cm/s RVOT Peak Gradient 2 mmHg PV Doppler PV Peak Velocity 86 cm/s PV Peak Gradient 3 mmHg Mitral Valve Name Value Normal MV Diastolic Function MV E Peak Velocity 66 cm/s MV A Peak Velocity 83 cm/s MV E/A 0.8 MV Decel Time (PW) 286 ms MV Annular TDI MV E/e' (Septal) 11.1 MV E/e' (Lateral) 7.8 MV E/e' (Average) 9.4 Tricuspid Valve Name Value Normal TV Regurgitation Doppler TR Peak Velocity 231 cm/s TR Peak Gradient 21 mmHg Estimated PAP/RSVP RA Pressure 5 mmHg <=5 PA Systolic Pressure 26 mmHg <36 RV Systolic Pressure 26 mmHg <36 TV Annular TDI TV Lateral Georgie s' Velocity 7.0 cm/s >=9.5 Aorta Name Value Normal Ascending Aorta Ao Root Diameter (MM) 3.7 cm Ao Root Diam Index (MM) 2.0 cm/m2 Aortic Valve Name Value Normal AV Doppler AV Peak Velocity 132 cm/s AV Peak Gradient 7 mmHg AV Mean Gradient 3 mmHg AV VTI 23 cm AV Area (Cont Eq VTI) 2.8 cm2 >=3.0 AV Area (Cont Eq Anam) 2.6 cm2 AV DI (Anam) 0.69 AV Regurgitation 2D LVOT Area 3.7 cm2 Ventricles Name Value Normal LV Dimensions 2D/MM IVS Diastolic Thickness (2D) 0.9 cm 0.6-1.0 LVID Diastole (2D) 5.2 cm 4.2-5.8 LVIW Diastolic Thickness (2D) 1.0 cm 0.6-1.0 LVID Systole (2D) 3.5 cm 2.5-4.0 LVOT Diameter 2.2 cm LV Mass (2D Cubed) 182.18 g 88.00-224.00 LV Mass Index (2D Cubed) 100 g/m2 49-115 Relative Wall Thickness (2D) 0.37 <=0.42 LV Fractional Shortening/Ejection Fraction 2D/MM LV Fractional Shortening (2D) 32 % 25-43 LV EF (2D Teichholz) 59 % LV Diastolic Volume (4C MOD) 119 ml LV EF (4C MOD) 64 % LV Diastolic Volume (2C MOD) 93 ml LV EF (2C MOD) 63 % LV Diastolic Volume (BP MOD) 108 ml 62-150 LV Diastolic Volume Index (BP MOD) 59 ml/m2 34-74 LV Systolic Volume (BP MOD) 38 ml 21-61 LV Systolic Volume Index (BP MOD) 21 ml/m2 11-31 LV EF (BP MOD) 64 % 52-72 LV Diastolic Length (4C) 8.9 cm LV Systolic Length (4C) 7.2 cm LV Stroke Volume (4C MOD) 76 ml Atria Name Value Normal LA Dimensions LA Dimension (MM) 4.6 cm 3.0-4.0 LA Volume (4C A-L) 64 ml LA Volume (BP A-L) 71 ml RA Dimensions RA Systolic Major [place] Length (4C) 3.9 cm 2.1-2.7 RA Area (4C) 12.0 cm2 <=18.0 Report Signatures
--- OUTSIDE RECORDS SUMMARY | 2024-11-05 13:25 | XMS_ITS | Encounter Summary ---
Author Organization [facility] Healthcare Address [address] [place] [address] Care Team Providers Care Patent Leather Sorter Name Role Phone Laron Matos MD Primary Care Provider [phone] Yosvany Richardson MD Unavailable [phone] Scott Reyna MD Unavailable [phone] Encounter Details Date Type Department Care Team (Late Contact Info) Description 06/25/2017 [place] Only [facility] [place] [address] [place] [id number] Scanning, Provider Social History Tobacco Use Types Packs/Day Years Used Date Smoking Tobacco: Former Cigarettes Q uit: 03/21/2011 Alcohol Use Standard Drinks/Week Comments No 0 (1 standard drink = 0.6 oz pur e alcohol) Sex and Gender Information Value Date Recorded Sex Assigned at Not on file 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
--- OUTSIDE RECORDS SUMMARY | 2024-11-05 13:25 | XMS_ITS | Encounter Summary ---
Author Organization [facility] Healthcare Address [address] [place] [address] Care Team Providers Care Telescope Maintenance Name Role Phone Laron Matos MD Primary Care Provider [phone] Yosvany Richardson MD Unavailable [phone] ReynaScott brooke MD Unavailable [phone] Encounter Details Date Type Department Care Team (Late st Contact Info) Description 05/28/2024 [place] Only [facility] [place] [address] [place] [id number] Scanning, Provider Social History Tobacco Use Types Packs/Day Years Used Date Smoking Tobacco: Every Day Cigarettes 0.8 50 Smokeless Tobacco: Never Alcohol Use Standard Drinks/Week Comments No 0 [...] on file 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 Gender Identity Not on file Sexual Orientation Not on file documented as of this encounter Plan of Treatment Not on file documented as of this encounter Procedures Procedure Name Priority Date/Time Associated Diagnosis Comments SCAN - RADIOLOGY/IMAGING 05/28/2024 documented in this encounter Results * SCAN - RADIOLOGY/IMAGING (05/28/2024) Anatomical Region Laterality Modality Other us Provider Scanning Final Result documented in this encounter Visit Diagnoses Not on filedocumented in this encounter Care Teams Telescope Maintenance Relationship Specialty Start Date End Date Laron Matos MD PCP - General 03/28/12 Yosvany Richardson MD [address] [place], [place] [id number] Referring Physician Gastroenterology 07/29/20 Scott Reyna MD [address] [place], [place] [id number] Consulting Physician Transplant Hepatology 09/01/20 documented as of this encounter
--- OUTSIDE RECORDS SUMMARY | 2024-11-05 13:25 | XMS_ITS | Patient Health Record ---
Author Organization [facility] [place] Address [address] [facility] [address] [place] [address] Care Team Providers Care Parking Technician Name Role Phone Carlo CHAVEZ, Laron Primary Care Provider Herbie Guerra Unavailable [phone] Allergies Allergen (clinical drug ingredient) Drug/Non Drug Allergy documented on EMR Reaction Allergy Type Onset Date Status Substance with sulfonamide structure and antibacterial mechanism of action (substance) SULFA (SULFONAMIDE ANTIBIOTICS) (uncoded) Unknown Allergy Active Ciprofloxacin Unknown Drug Allergy Act allan codeine Codeine Unknown Drug Allergy Active codeine Codeine Other (See comments) Drug Allergy Active Substance with sulfonamide structure and antibacterial mechanism of action (substance) Sulfa Antibiotics Other (See comments) Drug Allergy Active Results Component Value Reference Range Notes UDT Reviewed date:06/07/2024 05:03:27 PM Interpretation: Performing Lab: Notes/Report: THC N 0 - 50 ng/ml Cocaine N 0 - 300 ng/ml Amphetamine N 0 - 1000 ng/ml Buprenorphine (BUP) N 0 - 10 ng/ml Secobarbital (Bar) N 0 - 300 ng/ml Oxazepam (BZO) N 0 - 300 ng/ml 6-oquixjxznv-8,0-gqlaudll-8, 3-dipheny lpyrrolidine (EDDP) N 0 - 300 ng/ml Methamphetamine (MET) N 0 - 1000 ng/ml Methylenedioxymethamphetamine (MDMA) N 0 - 500 ng/ml Morphine (MOP 300/LFF4256) N 0 - 300 ng/ml Methadone (MTD) N 0 - 300 ng/ml Phencyclidine (PCP) N 0 - 25 ng/ml Nortriptyline (TCA) N 0 - 1000 ng/ml Oxycodone N 0 - 300 ng/ml DRUG MONITOR, CARISSA, NICOLE DANG NE ([id number]) Reviewed date:06/14/2024 12:48:21 PM Interpretation: Performing Lab:[facility] [id number] [facility] [place] Adelso Mckeon, Director - [address] [facility] To [facility] Notes/Report: FASTING: UNKNOWN Alphahydroxyalprazolam NEGATIVE <25 ng/mL Alphahydroxymidazolam NEGATIVE <50 ng/mL Alphahydroxytriazolam NEGATIVE <50 ng/mL Aminoclonazepam NEGATIVE <25 ng/mL Hydroxyethylflurazepam NEGATIVE <50 ng/mL Lorazepam NEGATIVE <50 ng/mL Nordiazepam NEGATIVE <50 ng/mL Oxazepam NEGATIVE <50 ng/mL Temazepam NEGATIVE <50 ng/mL Benzodiazepines Comments See LDT Notes Notes and Comments This drug testing is for medical treatment only. Analysis was performed as non-forensic testing and these results should be used only by healthcare providers to render diagnosis or treatment, or to monitor progress of medical conditions. LDT Notes: Confirmation tests were developed and their analytical performance characteristics have been determined by [facility]. It has not been cleared or approved by the FDA. This assay has been validated pursuant to the CLIA regulations and is used for clinical purposes. Healthcare Providers needing Interpretation assistance, please contact us at [phone] ( ) M-F, 8am to 10pm EST Reason For Referral No Information Medications Medication SIG (Take, Route, Frequency, Duration) Notes Start Date End Date Status Carvedilol 6.25 MG Oral; Duration: 90 Days Active Ten Sleep Carbonate 300 MG TAKE 2 CAPSULES Oral Twice a day; Duration: 30 days Active Caplyta 42 MG 1 capsule Orally Onc e a day; Duration: 30 days 06/08/2024 Active ALPRAZolam 0.5 MG 1 tablet Oral once a day; Duration: 30 days 06/07/2024 Active Lovastatin 20 MG 1 tablet with the ev ening meal Orally Once a day; Duration: 30 day(s) 06/07/2024 Active metFORMIN HCl 1000 MG 1 tablet with a me al Orally Once a day; Duration: 30 day(s) 06/07/2024 Active Enalapril Maleate 5 MG TAKE 1 TABLET BY MOUTH ONCE DAILY IN THE MORNING Oral; Duration: 90 Days Active Social History Tobacco Use: Social History Observation Description Date Details (start date - stop date) Current Smoker NA - NA Sex Assigned At : Social History Observation Description Sex Assigned At Male Tobacco Control (Standard) Question Answer Notes Tobacco use: Current smoker How often do you smoke cigarettes? Every day AUDIT-C (Standard) Question Answer Notes Did you have a drink containing alcohol in the p ast year? No Points 0 Interpretation Negative Problems Problem Type SNOMED Code ICD Code Onset Dates Problem Status W/U Status Risk Notes Problem Bipolar 1 disorder (860418228) Bipolar 1 disorder (F31.9) Active confirmed Vital Signs Heart Rate 84 /min 06/07/2024 Blood pressure diastolic 89 mm Hg 06/07/2024 Weight-kg 67.59 kg 06/07/2024 Blood pressure systolic 146 mm Hg 06/07/2024 Weight 149 lbs 06/07/2024 Encounters Encounter Location Date Provider Diagnosis Home Inns [facility] [address] [address] 06/07/2024 Herbei Clubb Bipolar 1 disorder F31.9 ; Benign essential HTN I10 ; Nicotine use Z72.0 and Encounter for screening for depression Z13.31 Home Inns [facility] [address] [address] 06/27/2024 Herbie Clubb [facility] [address] [place] [address] [address] 06/13/2024 Herbie Clubb [facility] [address] [place] [address] [address] 06/14/2024 Herbie Clubb [facility] [address] [address] 06/18/2024 Herbie Clubb Assessments Encounter Date Diagnosis (ICD Code) Assessment Notes Treatment Notes Treatment Clinical Notes Section Notes 06/07/2024 Bipolar 1 disorder (ICD-10 - F31.9) Electronic Prior Authorization was requested for Caplyta 42 MG Capsule. Provider can order medication once approval received. Antipsychotic medications, while effective for treating mental health conditions, can cause a range of side effects, from common to serious, requiring careful monitoring and discussion with a healthcare provider. Common Side Effects: Metabolic: Weight gain, increased cholesterol and blood sugar levels, and changes in appetite. Movement Disorders: Drowsiness, sedation, and in some cases, movement disorders like tremors, stiffness, or restlessness. Other: Dry mouth, constipation, blurred vision, and sexual dysfunction. Serious Side Effects: Extrapyramidal Symptoms (EPS): These include acute dystonia (muscle spasms), Parkinsonism (tremors, rigidity), and tardive dyskinesia (involuntary movements). Neuroleptic Malignant Syndrome (NMS): A rare but potentially fatal condition characterized by high fever, muscle rigidity, and altered mental state. Cardiovascular Issues: Prolongation of the QT interval (a heart rhythm problem), and in rare cases, sudden cardiac . Other Serious Side Effects: Increased risk of stroke, blood clots, and diabetes. Important Considerations: Medication-Specif ic Side Effects: Different antipsychotics have different side effect profiles, so it's crucial to discuss the specific medication with your doctor. Monitoring: Regular monitoring for side effects is essential, especially during the initial stages of treatment. Communication: Open communication with your doctor or psychiatrist is vital to address any concerns or side effects promptly. Older Adults: Antipsychotic medications should be used with caution in older adults due to an increased risk of certain side effects, including stroke and . Dementia: Antipsychotics should be used with extreme caution in people with dementia, as they can increase the risk of due to pneumoni If you are planning on becoming , notify your health care provider so that he/she can best manage your medications. People living with bipolar disorder who wish to become face important decisions. It is important to discuss the risks and benefits of treatment with your doctor and caregivers. Ten Sleep has been associated with an increased risk of Ebstein's anomaly, a heart valve defect. Even though data suggest that the risk of Ebstein's anomaly from first trimester use of lithium is very low, an ultrasound of the heart is recommended at 16 to 20 weeks of gestation. Ten Sleep levels should be monitored monthly in early and weekly near delivery. Do not stop taking lithium without first speaking to your health care provider. Discontinuing mood stabilizer medications during has been associated with a significant increase in symptom relapse. If an overdose occurs call your doctor or 911. You may need urgent medical care. You may also contact the poison control center at . A specific treatment to reverse the effects of lithium does not exist, but there are treatments to decrease the effects of the medication. Only a doctor can determine if you require treatment. Avoid drinking alcohol or using illegal drugs while you are taking lithium. They may decrease the benefits (e.g., worsen your condition) and increase adverse effects (e.g., sedation) of the medication. Avoid low sodium diets and dehydration because this can increase the risk of lithium toxicity. Avoid over the counter and prescription pain medications that contain nonsteroidal anti-inflammatory medications (NSAIDS) such as ibuprofen (Motrin, Advil) or naproxen (Aleve, Naprosyn) because these medications can increase the risk of toxicity from lithium. Avoid excessive intake of caffeinated beverages, such as coffee, tea, cola or energy drinks, since these may decrease levels of lithium and decrease effectiveness of the medication. Discontinuing caffeine use may increase lithium levels. Consult your health care provider before reducing or stopping caffeine use. What are the possible side effects of lithium? Common side effects Headache Nausea or vomiting Diarrhea Dizziness or drowsiness Changes in appetite Hand tremors Dry mouth Increased thirst Increased urination Thinning of hair or hair loss Acne-like rash Rare/Serious side effects Signs of lithium toxicity include severe nausea and vomiting, severe hand tremors, confusion, vision changes, and unsteadiness while standing or walking. These symptoms need to be addressed immediately with a medical doctor to ensure your lithium level is not dangerously high. In rare cases, lithium may lead to a reversible condition known as diabetes insipidus. If this occurs you would notice a significant increase in thirst and how much fluid you drink and how much you urinate. Talk to your doctor if you notice you are urinating more frequently than usual. Are There Any Risks For Taking Ten Sleep For Long Periods Of Time? Hypothyroidism (low levels of thyroid hormone) may occur with long-term lithium use. Rare kidney problems have been associated with long-term use of lithium. The risk increases with high levels of lithium. Your doctor will monitor your kidney function at routine check-ups to ensure this does not occur. Summary of Black Box Warnings Ten Sleep Toxicity Ten Sleep toxicity is closely related to lithium blood levels and can occur at doses close to therapeutic levels; lithium levels should be monitored closely when starting the medication or if individuals experience side effects of the medication. 06/07/2024 Benign essential HTN (ICD-10 - I10) 06/07/2024 Nicotine use (ICD-10 - Z72.0) 1-156-Quit - Yes [place] Tobacco Quitline Call a Smoking Quitline The National Cancer [place]'s Smoking Quitline, (7-224-76T-QUIT) Smokefree.gov, which connects you with your State's Quitline, (9-515-JWYTHGS) Veterans Smoking Quitline, (9-693-WGFVKYG) 06/07/2024 Encounter for screening for depression (ICD-10 - Z13.31) 06/07/2024 Other Learning About Depression Screening material was printed, Lumateperone material was published, Lumateperone material was printed Male patient with a history of bipolar disorder, anxiety, and cardiac issues presenting with symptoms of an impending manic episode, anxiety, and depression. Bipolar Disorder with Impending Manic Episode Assessment: Patient reports symptoms consistent with an impending manic episode. He has a history of multiple hospitalizations (4 times) for manic episodes, including suicidal attempts. The patient is currently on lithium therapy, but the last lithium level check is unknown. Noted addition of enalapril (for cardiac issues) may potentially affect lithium levels. Patient also reports difficulty with fine motor skills, stating I can't get a hold of things with my hands, which could be a side effect of medication or a symptom of the impending manic episode. Plan: - Order lithium level - Initiate Caplyta (lumateperone) as an add-on to lithium for bipolar depression - Provide 2-week sample of Caplyta to patient - Follow up with patient via phone call once lithium results are available - Adjust lithium dosage based on level results if necessary - Advised patient to go to the hospital if symptoms worsen significantly before receiving lithium results or follow-up call Anxiety Assessment: Patient reports ongoing anxiety and is currently taking alprazolam nightly as part of a regimen. Recent hospitalization two weeks ago was partially due to anxiety. The patient is experiencing increased stress due to caregiver responsibilities for his , who is bedridden following a stroke 5 years ago. Plan: - Continue current alprazolam regimen - Caplyta initiation is expected to also address anxiety symptoms Depression Assessment: Patient confirms experiencing depression in addition to anxiety and manic symptoms. The depression appears to be related to his bipolar disorder and possibly exacerbated by his caregiver stress. Plan: - Initiate Caplyta (lumateperone) to address bipolar depression Cardiac Issues Assessment: Patient reports being a heart patient with a history of multiple stents (6) placed in 2011 for coronary artery disease. Recently started on enalapril, which may interact with his lithium therapy. Patient has an upcoming cardiology appointment on June 29. Plan: - Monitor for potential lithium-enalapril interaction - Patient to follow up with manager state as scheduled on June 29 Weight Loss Assessment: Patient reports unintentional weight loss from a previous weight of 140 pounds to a current weight of 135 pounds. The cause of weight loss is not specified but may be related to his psychiatric or cardiac conditions. Plan: - Monitor weight at follow-up appointments The note is transcribed using speech recognition software. It is a reflection of a visit with the patient. It might have some inaccuracy, including medication names and transcribing errors, though efforts have been made to correct them. Plan Of Treatment Pending Test Test Name Order Date THYROID PANEL WITH TSH (7444) 06/07/2024 BASIC METABOLIC PANEL (37047) 06/07/2024 CBC (H/H, RBC, INDICES, WBC, PLT) (1759) 06/07/2024 VITAMIN B12 (927) 06/07/2024 VITAMIN D,25-OH,TOTAL,IA (54104) 025 LITHIUM (613) 06/07/2024 Insurance Providers Payer Name Payer Address Payer Phone Subscriber Number Group Number Insured Name Patient Relationship to Insured Coverage Start Date Coverage End Date [facility] [address] [place] [phone] [id number] JIMENEZ PETERS Self - patient is the insured Medical (General) History Medical History History ICD Code myocardial infarction hypertension hyperlipidemia Neuroendocrine tumor Cancer of endocrine pancreas 2020 Surgical History Surgery Date(Month/Year) cardiac cath Hospitalization History Reason Date(Month/Year) cardiac 3 prior inpatient psychiatri c hospitalizations for jackson and suicide attempt.
--- OUTSIDE RECORDS SUMMARY | 2024-11-05 13:25 | XMS_ITS | Clinical Summary ---
Author Organization [facility] [address] Address [address] [place] [address] Care Team Providers Care Small Piece Cutter Name Role Phone Laron Matos MD Primary Care Provider + [phone] Yosvany Richardson MD Unavailable [phone] Scott Reyna MD Unavailable [phone] Allergies Active Allergy Reactions Criticality Noted Date [...] (08/13/2020): Added automatically from request for surgery [id number] Pancreas cyst 08/06/2020 Surgical History Surgery Date Site/Laterality Comments HEART SURGERY 03/21/2011 - 03/20/2012 Medical History Medical History Date Comments Bipolar disorder Colon polyp Pancreatitis Coronary artery disease Hyperlipidemia Hypertension Type 2 diabetes mellitus Neuropathy loss of some mot or control [...] on file 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 Gender Identity Not on file Sexual [...] on file Medical Devices Implanted Type Area Paste Thinner Device Identifier Shelf Expiration Date Model / Serial / Lot Stent Stent N/A: Heart Description:At least three s tents in heart, placed approximately 2005 Insurance [facility] Advance Directives For more information, please contact: [phone] * Full Code (Latest Code Status on File) Date Activated Date Inactivated Comments 08/28/2020 8:06 PM 09/01/2020 7:04 PM * Full Code Date Activated Date Inactivated Comments 07/21/2020 9:19 AM 07/21/2020 4:17 PM Care Teams Small Piece Cutter Relationship Specialty Start Date End Date Laron aMtos MD PCP - General 03/28/12 Yosvany Richardson MD [address] [place], [place] [id number] Referring Physician Gastroenterology 07/29/20 Scott Reyna MD [address] [facility] [address] [place], [place] [id number] Consulting Physician Transplant Hepatology 09/01/20
--- OUTSIDE RECORDS SUMMARY | 2024-11-05 13:25 | XMS_ITS | Continuity of Care Document ---
Author Organization [facility] Address [address] [place] [address] [address] [place] [address] Phone Care Team Providers Care Display Decorator Name Role Phone Mauro Herring Unavailable Unavailable Procedures Procedure Date Eye Exam & Treatment Advance Directives Directive Yes / No Effective Date File Name No Information Encounters Encounter Description Practice Location Reason(s) For Visit Diagnoses Date Provider Providers Copied on Encounter [facility], [address], [place], [place], [id number], [place] tel:[phone] [facility] No Information [address] , [address], [place], [address], [place]. tel:[phone] Referring Provider: Laron Matos MD F, [address] [place], [address]. tel:[phone] Family History Family Member Type Diagnosis Age At Onset No Information Payers Payer name Insurance type Covered alliance party ID Authoriza tion(s) Medicaid [facility] [id number] Social History Type Description Quantity Date Captured [...]
== END 2024-11-05 12:46 | disposition home or self-care (01) ==
PROVIDERS: PCP Family Medicine; Visit Provider Internal Medicine Cardiovascular Disease
DX: R93.1 Abnormal findings on diagnostic imaging of heart and coronary circulation (principal); R06.09 Other forms of dyspnea
CPT/HCPCS: 93306

== ENCOUNTER 2025-01-26 18:36 | Emergency (ER) | payer MEDICARE, MEDICAID, SELFPAY ==
--- OUTSIDE RECORDS SUMMARY | 2007-05-03 03:15 | XMS_ITS | Continuity of Care Document ---
[facility] Organization [facility] Address [address] [place] [address] [address] [place] [address] Phone Care Team Providers Care Tissue Recovery Technician Name Role Phone Mauro Herring Unavailable Unavailable Procedures Procedure Date Eye Exam & Treatment Advance Directives Directive Yes / No Effective Date File Name No Information Encounters Encounter Description Practice Location Reason(s) For Visit Diagnoses Date Provider Providers Copied on Encounter [facility], [address], [place], [place], [id number], [place] tel:[phone] [facility] No Information [address] [facility] [address] [address] , [address], [place], [address], [place]. tel:[phone] Referring Provider: Laron Matos MD F, [address] [place], [address]. tel:[phone] Family History Family Member Type Diagnosis Age At Onset No Information Payers Payer name Insurance type Covered republican ID Authoriza tion(s) Medicaid [facility] [id number] Social History Type Description Quantity Date Captured Comments Sex Male Smoking Status No Information Chief Complaint And Reason For Visit No Information Reason For Referral Reason For Referral No Information History Of Present Illness Encounter Date Complaint History Of Prese nt Illness No Information Functional Status Date Functional Assessmen t No Information Instructions Date Instruction Additional Infor mation No Information Assessments Type Assessment Date No Information Patient Care Teams Name Effective Dates (start - stop) Status Members No Information
--- NOTE | ~2025-01-26 | XR_ITS ---
Examination: XR elbow LT 2V, XR elbow RT 2V Clinical History: fall Comparison: None Technique: 2 views left elbow, 3 views right elbow Findings/impression: Left elbow: 1. Nondisplaced fracture coronoid process not excluded. 2. No other acute abnormality. Right elbow: 1. Nondisplaced avulsion fracture along olecranon process not excluded. 2. No other acute abnormality Reviewed, dictated and finalized at location R. ED BOX SEWER
--- NOTE | ~2025-01-26 | XR_ITS ---
Examination: XR knee RT 3V Clinical History: fall Comparison: None Technique: 3 views right knee Findings/impression: No acute findings- 1. No acute fracture, dislocation, or effusion right knee. 2. Minimal degenerative changes. 3. Peripheral arterial disease. 4. Greater saphenous vein harvested. Reviewed, dictated and finalized at location R. LE MAKER
--- NOTE | ~2025-01-26 | CT_ITS ---
EXAMINATION:CT diagnostic chest wo con DATE: 01/26/2025 20:26 INDICATION: Right rib pain. Fall. TECHNIQUE: Computed tomography (CT) of the chest was performed without intravenous contrast. Automated exposure control and iterative reconstruction technique were employed. The dose-length product (DLP) was 307.42 mGy-cm. COMPARISON: Chest CT 12/04/2021 FINDINGS: There is moderate emphysema. There is mild atelectasis bilaterally. Calcified right lung nodules and calcified right hilar lymph nodes are consistent with old granulomatous disease. No pleural effusion. The heart size is normal. There are coronary artery calcifications. No pericardial effusion. There is a fracture of right 10th rib. IMPRESSION: 1. Acute fracture of right 10th rib. 2. Moderate emphysema. Reviewed, dictated and finalized at location E. TESTER
--- NOTE | ~2025-01-26 | CT_ITS ---
CT HEAD NON-CONTRAST CT C-SPINE Clinical History: fall, hit head Comparison: Brain MRI 07/23/2024 Technique: Unenhanced axial images skull base to vertex. Coronal, sagittal reformats. Axial images thoracic inlet to skull base. Sagittal and coronal reformats. CT images acquired with automatic exposure control for dose reduction DLP: 681 mGy-cm Findings: Head: Basal ganglia lacunae. Chronic white matter microvascular ischemic changes. Sulci, ventricles: Unremarkable. No intracerebral hemorrhage. No evidence acute territorial infarct. No mass effect, midline shift, intra-/extra-axial fluid collection. Bony calvarium intact. Visualized paranasal sinuses: Ethmoid and left maxillary disease. Mastoid air cells: Clear. C-spine: No acute fracture or listhesis. Vertebral bodies normal height and alignment. Moderate degenerative changes. Disc spaces maintained. Prevertebral soft tissues within normal limits. Visualized lung apices: Emphysema. Visualized thyroid: Unremarkable. No enlarged cervical nodes. IMPRESSION: HEAD: 1. No acute intracranial findings. C-SPINE: 1. No acute fracture. Reviewed, dictated and finalized at location R. OMATIC INTERPRETER IMPRESSION: HEAD: 1. No acute intracranial findings. C-SPINE: 1. No acute fracture.
[2025-01-26 18:36] VITALS: BP 171/97; PULSE 67; RESP 16; TEMP 37.2; O2SAT 96
--- OUTSIDE RECORDS SUMMARY | 2025-01-26 19:08 | XMS_ITS | Encounter Summary ---
Author Organization [facility] Address [address] [place] [address] Care Team Providers Care Coding Support Specialist Name Role Phone Laron Matos MD Primary Care Provider [phone] Yosvany Richardson MD Unavailable Scott Reyna MD Unavailable [phone] Encounter Details Date Type Department Care Team (Late Contact Info) Description 06/25/2017 Orders Only [facility] Health Information Management [address] [place] [address] Scanning, Provider Social History Tobacco Use Types Packs/Day Years Used Date Smoking Tobacco: Former Cigarettes Q uit: 03/21/2011 Alcohol Use Standard Drinks/Week Comments No 0 (1 standard drink = 0.6 oz pur e alcohol) Sex and Gender Information Value Date Recorded Sex Assigned at Not on file 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
--- OUTSIDE RECORDS SUMMARY | 2025-01-26 19:08 | XMS_ITS | Patient Health Record ---
Author Organization [facility] [employer] Address [address] [facility] [address] [place] [address] Care Team Providers Care Delivery Crew Member Name Role Phone Carlo CHAVEZ, Laron Primary Care Provider Herbie Guerra Unavailable [phone] Allergies Allergen (clinical drug ingredient) Drug/Non Drug [...] Active Results Component Value Reference Range Notes DRUG MONITOR, BENZO, QN, URI NE ([id number]) Reviewed date:06/14/2024 12:48:21 PM Interpretation: Performing Lab:[place], [facility] [id number] [facility] [id number] Adelso Mckeon, Director - [id number] [employer] [facility] Notes/Report: FASTING: UNKNOWN Alphahydroxyalprazolam NEGATIVE <25 ng/mL [...] analytical performance characteristics have been determined by [employer]. It has not been cleared or approved by the FDA. This assay has been validated pursuant to the CLIA regulations and is used for clinical purposes. Healthcare Providers needing Interpretation assistance, please contact us at [phone] ( ) M-F, 8am to 10pm EST UDT Reviewed date:06/07/2024 05:03:27 PM Interpretation: Performing Lab: Notes/Report: Amphetamine (AMP) N 0 - 1000 ng/ml Buprenorphine (BUP) N 0 - 10 ng/ml Oxazepam (BZO) N 0 - 300 ng/ml Cocaine (PAULA) N 0 - 300 ng/ml Methamphetamine (mAMP) N 0 - 300 ng/ml Methylenedioxymethamphetamine (MDMA) N 0 - 500 ng/ml Morphine (MOP) N 0 - 25 ng/ml Methadone (MTD) N 0 - 300 ng/ml Oxycodone (OXY) N 0 - 300 ng/ml THC N 0 - 50 ng/ml x N 0 - 1000 ng/ml x N 0 - 1000 ng/ml x N 0 - 300 ng/ml x N 0 - 300 ng/ml Reason For Referral No Information Medications Medication SIG (Take, Route, Frequency, Duration) Notes Start Date End Date Status Carvedilol 6.25 MG Tablet Oral; Duration: 90 Days Active Tarrants Carbonate 300 MG Capsule TAKE 2 CAPSULES Oral Twice a day; Duration: 30 days Active Caplyta 42 MG Capsule 1 capsule Orally O nce a day; Duration: 30 days 06/08/2024 Active ALPRAZolam 0.5 MG Tablet 1 tablet Oral o nce a day; Duration: 30 days 06/07/2024 Active Lovastatin 20 MG Tablet 1 tablet with th e evening meal Orally Once a day; Duration: 30 day(s) 06/07/2024 Active metFORMIN HCl 1000 MG Tablet 1 tablet with a meal Orally Once a day; Duration: 30 day(s) 06/07/2024 Active Enalapril Maleate 5 MG Tablet TAKE 1 TABLET BY MOUTH ONCE DAILY IN THE MORNING Oral; Duration: 90 Days Active Social History Tobacco Use: Social History Observation Description Date Details (start date - stop date) Current Smoker NA - NA Sex Assigned At : Social History Observation Description Sex Assigned At Male Social History Drug/Alcohol: Social Info Question Answer Notes Drugs Have you used drugs other than those for medical reasons in the past 12 months? No AUDIT-C (Standard) Did you have a drink containing alcohol in the past year? No Points 0 Interpretation Negative Tobacco Use: Social Info Question Answer Notes Tobacco Control (Standard) Tobacco use: Current smoker How often do you smoke cigarettes? Every day Problems Problem Type SNOMED Code ICD Code Onset Dates Problem Status W/U Status Risk Notes Problem Bipolar 1 disorder (200806521) Bipolar 1 disorder (F31.9) Active confirmed Vital Signs Heart Rate 84 /min 06/07/2024 Blood pressure diastolic 89 mm Hg 06/07/2024 Weight-kg 67.59 kg 06/07/2024 Blood pressure systolic 146 mm Hg 06/07/2024 Weight 149 lbs 06/07/2024 Encounters Encounter Location Date Provider Diagnosis [facility] [address] [address] 06/07/2024 Herbie Clubb Bipolar 1 disorder F31.9 ; Benign essential HTN I10 ; Nicotine use Z72.0 and Encounter for screening for depression Z13.[address] [address] 06/27/2024 Herbie Clubb [employer] [address] [place] [address] [address] 06/13/2024 Herbie Clubb [employer] [address] [place] [address] [address] 06/14/2024 Herbie Clubb [employer] [address] [place] [address] [address] 06/18/2024 Herbie Clubb Assessments Encounter Date Diagnosis [...] of treatment with your doctor and caregivers. Tarrants has been associated with an increased risk of Ebstein's anomaly, a heart valve defect. Even though data suggest that the risk of Ebstein's anomaly from first trimester use of lithium is very low, an ultrasound of the heart is recommended at 16 to 20 weeks of gestation. Tarrants levels should be monitored monthly in early [...] usual. Are There Any Risks For Taking Tarrants For Long Periods Of Time? Hypothyroidism (low levels of thyroid hormone) may occur with long-term lithium use. Rare kidney problems have been associated with long-term use of lithium. The risk increases with high levels of lithium. Your doctor will monitor your kidney function at routine check-ups to ensure this does not occur. Summary of Black Box Warnings Tarrants Toxicity Tarrants toxicity is closely related to lithium blood levels and can occur at doses close to therapeutic levels; lithium levels should be monitored closely when starting the medication or if individuals experience side effects of the medication. 06/07/2024 Benign essential HTN (ICD-10 - I10) 06/07/2024 Nicotine use (ICD-10 - Z72.0) -736-Quit - Yes [place] Tobacco Quitline Call a Smoking Quitline The National Cancer [place]'s Smoking Quitline, (4-165-13Z-QUIT) Smokefree.gov, which connects you with your State's Quitline, (3-802-HCUIXMS) Veterans Smoking Quitline, (9-706-IHWHCLE) 06/07/2024 Encounter for screening for depression (ICD-10 [...] interaction - Patient to follow up with bologna lacer as scheduled on June 29 Weight Loss [...] WITH TSH (7444) 06/07/2024 BASIC METABOLIC PANEL (84096) 06/07/2024 CBC (H/H, RBC, INDICES, WBC, PLT) (1759) 06/07/2024 VITAMIN B12 (927) 06/07/2024 VITAMIN D,25-OH,TOTAL,IA [phone] LITHIUM (613) 06/07/2024 Insurance Providers Payer Name Payer Address Payer Phone Subscriber Number Group Number Insured Name Patient Relationship to Insured Coverage Start Date Coverage End Date [facility] [address] [place] [address] [id number] JIMENEZ PETERS Self - patient is the insured Medical (General) History Medical History History ICD Code myocardial infarction hypertension hyperlipidemia Neuroendocrine tumor Cancer of endocrine pancreas 2020 Surgical History Surgery Date(Month/Year) cardiac cath Hospitalization History Reason Date(Month/Year) cardiac 3 prior inpatient psychiatri c hospitalizations for jackson and suicide attempt.
--- OUTSIDE RECORDS SUMMARY | 2025-01-26 19:08 | XMS_ITS | Clinical Summary ---
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 Gender Identity Not on file Sexual Orientation [...] on file Medical Devices Implanted Type Area Shooter'S Helper Device Identifier Shelf Expiration Date Model / Serial / Lot Stent Stent N/A: Heart Description:At least three s tents in heart, placed approximately 2005 Insurance [facility] MEDICARE AD[facility] Address: [address] [address] [place] [address] Advance Directives For more information, please contact: [phone] * Full Code (Latest Code Status on File) Date Activated Date Inactivated Comments 08/28/2020 8:06 PM 09/01/2020 7:04 PM * Full Code Date Activated Date Inactivated Comments 07/21/2020 9:19 AM 07/21/2020 4:17 PM Care Teams Combiner Relationship Specialty Start Date End Date Laron Matos MD PCP - General 03/28/12 Yosvany Richardson MD [address] [facility] [address] [address] [place], [place] [id number] Referring Physician Gastroenterology 07/29/20 Scott Reyna MD [address] [facility] [address] [place] [address] Consulting Physician Transplant Hepatology 09/01/20
--- OUTSIDE RECORDS SUMMARY | 2025-01-26 19:08 | XMS_ITS | Encounter Summary ---
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
--- NOTE | 2025-01-26 19:17 | ED.FALL ---
HPI - Fall General Chief Complaint: Fall Stated Complaint: R rib and knee pain after falling on steps Time Seen by Provider: 01/26/25 18:57 History of Present Illness HPI Narrative: This is a 69-year-old male with history of CAD status post CABG, pancreatic cancer, hyperlipidemia, hypertension who presents the ED for a fall. Patient states that he was helping move [employer] decorations up the stairs when he lost his balance and fell down 5-6 steps. He is unsure if he hit his head, denies loss consciousness. Reports bilateral elbow pain, right knee pain at this time. Also reports right lateral lower rib pain that is worse with deep inspiration. Per EMS, patient was reportedly A/O times 2-3 for them but is AAO x4 here. Related Data Allergies Allergy/AdvReac Type Severity Reaction Status Date / Time ciprofloxacin (From Cipro) Allergy Mild Rash Verified 12/20/24 07:32 Sulfa (Sulfonamide Allergy Mild rash Verified 12/20/24 07:32 Antibiotics) codeine AdvReac Mild nausea Verified 12/20/24 07:32 Review of Systems Review of Systems: Gen.: Denies fevers or chills Eyes: Denies eye pain or visual change ENT: Denies congestion Respiratory: Denies shortness of breath or cough CV: As per HPI GI: Denies abdominal pain nausea, emesis or diarrhea denies burning, urgency, frequency or hematuria Musculoskeletal: As per HPI Neuro: Denies numbness, tingling, weakness or focal weakness Skin: Denies rash Except as documented, all other systems reviewed and negative PMFSH Past Medical History Medical History Hypertensive heart disease without congestive heart failure Diabetes mellitus with microalbuminuria Diabetes mellitus with hyperglycemia BMI (body mass index) 20.0-29.9 Diabetes Chronic pancreatitis COVID Diabetes type 2, controlled BMI 21.0-21.9, adult Pancreatic cancer Colonoscopy planned Bowel habit changes Weight loss Anxiety Bipolar disorder, unspecified Essential hypertension Mixed hyperlipidemia Old RI (myocardial infarction) Surgical History Surgical History H/O Whipple procedure History of splenectomy History of pancreatectomy History of endoscopy S/P CABG (coronary artery bypass graft) 6 vessel Family History Family History Father Hypertension Cerebrovascular accident Family history of coronary artery disease Family history of cardiovascular disease CHF (congestive heart failure) Mother Family history of diabetes mellitus in first degree relative CHF (congestive heart failure) Diabetes mellitus Sibling Diabetes mellitus Kidney failure Sibling Hypertension Blindness and low vision Other Family history of malignant neoplasm Social History Social History Social History: He lives with his and daughter and is raising his grandson. He has 4 children. 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 He still continues to smoke a pack a cigarettes a day. He denies any alcohol marijuana or illicit drugs. His is the durable power research attorney for healthcare. Code status full code Smoking packs per day: 1 Smoking cigarettes per day: 20.0 Years smoked: 51 Smoking pack-years: 51.00 Tobacco type: cigarettes Second hand tobacco smoke exposure: Yes Alcohol intake: never Substance use: never Substance use type: does not use Do You Feel Safe in your Home?: Yes Lack of Transportation: No Lack of Food: Never True Current Housing: I Have Housing Concerned About Future Housing: No Difficulty Paying Gas/Electric Bills: No Difficulty Paying for Meds: No Currently Unemployed: No Education: High School Diploma/GED Difficulty w/ Childcare or Family Care: No Living arrangements: with family Additional living arrangements comments: with daughter Occupation/Education: 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 Gender identity (if verbalized by the patient): Male Spiritual care concerns: No Exam Narrative: APPEARANCE: No acute distress, nontoxic, resting in bed EYES: EOMI HEENT: Normocephalic, OMM. Small contusion abrasion to the vertex of the scalp. No cervical tenderness to palpation. RESPIRATORY: No respiratory distress Clear to auscultation bilaterally with no rhonchi wheezing or rales. CARDIOVASCULAR: Regular rate and rhythm without murmurs rubs or gallops. ABDOMINAL: Soft, nontender, nondistended, no rebound or guarding MUSCULOSKELETAl: Mild tenderness over the right proximal radius without deformities. Minimal tenderness over the left elbow. No tenderness with Anita NEURO: Awake and alert. Following commands, speech normal, no focal deficits SKIN:: Skin tears to the right elbow and the left elbow bleeding controlled. Abrasion over the right patella PSYCHIATRIC: Normal affect/mood, Course Vital Signs Vital signs: Vital Signs Temperature 98.9 F 01/26/25 18:36 Pulse Rate 67 01/26/25 18:36 Respiratory Rate 16 01/26/25 18:36 Blood Pressure 171/97 H 01/26/25 18:36 Pulse Oximetry 96 01/26/25 18:36 Oxygen Delivery Room Air 01/26/25 18:36 Temperature 98.9 F 01/26/25 18:36 Pulse Rate 71 01/26/25 19:39 Respiratory Rate 18 01/26/25 19:39 Blood Pressure 161/87 H 01/26/25 19:39 Pulse Oximetry 94 01/26/25 19:39 Oxygen Delivery Room Air 01/26/25 18:36 MDM - Fall MDM Narrative Medical decision making narrative: 69-year-old male Presenting for a fall. On initial evaluation patient was in no acute distress afebrile, hemodynamic stable. Differentials include but are not limited to: Fracture, sprain, strain, contusion, intracranial hemorrhage, cervical fracture Notable exam findings: Skin tears over the right elbow and left elbow. Abrasion over the right knee, abrasion to the scalp, tenderness over the right lateral lower ribs Notable imaging findings: X-ray showed no acute process. CT head and CT C-spine showed no acute process. CT chest revealed a nondisplaced lateral left rib 10 fracture. Patient did have improvement of his pain. Skin tears were cleaned and dressed. Patient was educated on incentive spirometry use. He was given prescriptions for Lidoderm and Force. He was educated on Tylenol and ibuprofen use. Patient does live with family and they are able to take care of him. Advised to follow-up with his PCP in the next week for re-evaluation. Patient and family were agreeable to this plan. Given strict return precautions. Medical Records Attestation: I reviewed the patient's medical records. Lab Data Attestation: I reviewed the patient's lab results. Imaging Data Attestation: I personally reviewed and interpreted this imaging study as follows: My impression: Left elbow: No acute fractures noted Right elbow: No acute fractures noted Right knee: No acute fractures noted Discharge Plan Discharge Clinical Impression: Skin tear Fall Qualifiers: Encounter type: initial encounter Qualified Code(s): W19.XXXA - Unspecified fall, initial encounter Contusion Qualifiers: Encounter type: initial encounter Contusion area: head Contusion of head detail: scalp Qualified Code(s): S00.03XA - Contusion of scalp, initial encounter Fracture of rib Qualifiers: Encounter type: initial encounter Rib fracture type: single rib Fracture type: closed Laterality: left Qualified Code(s): S22.32XA - Fracture of one rib, left side, initial encounter for closed fracture Patient Disposition: Home Condition: Stable Instructions: Antibiotic Form, How to Use an Incentive Spirometer (ED), Rib Fracture (ED), Contusion in Adults (ED) Additional Instructions: You were found to have a rib fracture. Use the incentive spirometer as instructed. Take Lidoderm and Force as prescribed. Follow-up with your PCP in the next week for re-evaluation. Return to the ED for any new or worsening symptoms. For pain, discomfort or temperature greater than or equal to 100.8 ?F please alternate the following 2 medications as needed. First medication- acetaminophen/Tylenol- 1000mg every 6-8 hours as needed for above indications. Second medication- ibuprofen/Motrin-600mg every 6-8 hours as needed for above indication. Patient Language: Icelandic Prescriptions: New lidocaine [Lidoderm] 5 % adhesive patch,medicated 1 patch topical DAILY Qty: 15 0RF Rx Instructions: leave on most painful area for up to 12 hrs hydrocodone-acetaminophen 5-325 mg tablet 1 tablet PO Q8H PRN (Reason: pain (scale score 7-10)) Qty: 12 0RF No Action (DME) FreeStyle Precision Brian Strips Strip See Rx Instructions .Route Qty: 50 2RF Rx Instructions: As directed to calibrate yoseph 3 insulin glargine [Lantus Solostar U-100 Insulin] 100 unit/mL (3 mL) insulin pen 22 unit subcut QPM Qty: 15 2RF fluoxetine 20 mg capsule 20 mg PO DAILY Qty: 30 2RF dapagliflozin propanediol [Farxiga] 10 mg tablet 10 mg PO QAM Qty: 90 3RF enalapril maleate 5 mg tablet 5 mg PO DAILY Qty: 90 1RF Rx Instructions: AM insulin lispro [Humalog KwikPen Insulin] 100 unit/mL insulin pen 1 sliding scale dose subcut USEASDIRECTD Qty: 15 1RF Rx Instructions: Dose according to sliding scale after checking glucose. Max dose 80units daily isosorbide mononitrate 30 mg tablet extended release 24 hr 30 mg PO DAILY Qty: 90 1RF Rx Instructions: AM (DME) FreeStyle Yoseph 3 Sensor Device See Rx Instructions .Route Qty: 6 3RF Rx Instructions: As directed lovastatin 20 mg tablet 20 mg PO HS Qty: 90 1RF carvedilol 6.25 mg tablet 6.25 mg PO BID Qty: 180 0RF (DME) FreeStyle Yoseph 3 [place] Misc See Rx Instructions .Route Qty: 1 0RF Rx Instructions: As directed alprazolam 0.5 mg tablet 0.5 mg PO DAILY PRN (Reason: anxiety) Qty: 15 0RF Rx Instructions: Take 1/2 of a tablet daily as needed for anxiety. metformin 1,000 mg tablet See Rx Instructions .ROUTE .COMPLEX Qty: 180 0RF Dose Instruction: Take 1 tablet by mouth twice daily Rx Instructions: Take 1 tablet by mouth twice daily Creon 36,000-114,000- 180,000 unit capsule,delayed release(DR/EC) See Rx Instructions PO .COMPLEX MDD 18 capsules a day Qty: 300 2RF Rx Instructions: 2 with meal and 1 with a snack orally; administer with meals and/or snacks lithium carbonate 300 mg capsule 600 mg PO BID Qty: 180 1RF Patient Comments: Patient states he doesnt like to take it BID, takes once daily Follow-up/Referrals: Laron Matos MD [Primary Care Provider, [facility]]
[2025-01-26] MEDS: LIDOCAINE 5% PATCH 1 PATCH TRANSDERM (19:31)
[2025-01-26] MEDS: TETANUS,DIPHTHERIA,AC PERTUSSIS ADULT (0.5 ML) BOOSTRIX IM (19:31)
[2025-01-26] MEDS: MORPHINE SULFATE (*CRX) 4 MG/ML INJ 2 MG IV PUSH ×2 (19:32→22:11)
[2025-01-26 19:39] VITALS: BP 161/87; PULSE 71; RESP 18; O2SAT 94
--- NOTE | 2025-01-26 22:00 | PC.NURSE ---
Resp notified of need for incentive spirometry.
[2025-01-26] MEDS: oxyCODONE HCL (*CRX) 5 MG TAB IR PO (22:10)
[2025-01-26 22:41] VITALS: BP 120/75; PULSE 68; RESP 16; O2SAT 95
== END 2025-01-26 22:43 | disposition home or self-care (01) ==
PROVIDERS: Emergency Provider Student in an Organized Health Care Education/Training Program; PCP Family Medicine
DX: S51.012A Laceration without foreign body of left elbow, initial encounter (principal); S51.011A Laceration without foreign body of right elbow, initial encounter; S22.31XA Fracture of one rib, right side, initial encounter for closed fracture; S00.03XA Contusion of scalp, initial encounter; Z23 Encounter for immunization; I25.10 Atherosclerotic heart disease of native coronary artery without angina pectoris; I11.0 Hypertensive heart disease with heart failure; I50.9 Heart failure, unspecified; I25.2 Old myocardial infarction; E78.5 Hyperlipidemia, unspecified; E11.9 Type 2 diabetes mellitus without complications; E78.2 Mixed hyperlipidemia; F17.210 Nicotine dependence, cigarettes, uncomplicated; Z95.1 Presence of aortocoronary bypass graft; Z85.07 Personal history of malignant neoplasm of pancreas; Z86.16 Personal history of COVID-19; Z90.81 Acquired absence of spleen; Z90.410 Acquired total absence of pancreas; Z79.4 Long term (current) use of insulin; Z79.899 Other long term (current) drug therapy; W10.9XXA Fall (on) (from) unspecified stairs and steps, initial encounter; I73.9 Peripheral vascular disease, unspecified; J43.9 Emphysema, unspecified
CPT/HCPCS: 70450; 71250; 72125; 73070; 73562; 90471; 90715; 96374; 96376; 99284; A9270; J2270

== ENCOUNTER 2025-02-27 09:31 | Emergency (ER) | payer MEDICARE, MEDICAID, SELFPAY ==
--- NOTE | ~2025-02-27 | CT_ITS ---
EXAMINATION: CT brain wo monet, 02/27/2025 13:55 [employer]NA[employer] HISTORY: fall, hit head COMPARISON: No comparisons available. Technique: Axial images obtained of the brain without contrast. One or more of the following dose reduction techniques were used: automated exposure control, adjustment of the mA and/or kV according to patient size, use of iterative reconstruction technique. Findings: There are remote bilateral basal ganglial lacunar infarcts. No acute infarct or hemorrhage. No midline shift or mass effect. No extra-axial fluid collections. Mastoid air cells unremarkable. Sinuses and orbits unremarkable. No acute fracture. No significant facial or scalp soft tissue swelling evident. No radiopaque foreign body is seen. Impression: 1.No acute intracranial abnormality. Reviewed, dictated and finalized at location P. G[employer] Impression: 1.No acute intracranial abnormality.
--- NOTE | ~2025-02-27 | XR_ITS ---
EXAMINATION: XR knee RT 3V DATE: 02/27/2025 14:28 INDICATION: Trauma due to fall. TECHNIQUE: 3 views of the right knee were obtained. COMPARISON: Previous radiograph dated 01/26/2025 FINDINGS: No acute bony lesions. Moderate degenerative changes of medial and lateral compartments. Postsurgical changes of venous structures at the knee. IMPRESSION: 1. No acute bony lesions. Degenerative changes and postsurgical changes similar to prior study. MRI is indicated if symptoms are localized and persistent. Reviewed, dictated and finalized at location T. [employer]
--- NOTE | ~2025-02-27 | CT_ITS ---
EXAMINATION: CT cervical spine wo con COMPARISON: None HISTORY: fall, hit head TECHNIQUE: Axial images were obtained through the spine without IV contrast. Coronal, sagittal reconstruction images were obtained from the axial views. CT scan performed using dose optimization techniques including the following automated exposure control; adjustment of mA and/or kV; use of iterative reconstruction technique. Automatic exposure control was used to reduce radiation dose. Permanent radiation dose record is archived to PACS. FINDINGS: Grade 1 anterolisthesis of C3 on C4 and C4-C5 and C6 on C7, no fracture. Severe loss of disc height at C4-5 and C5-6 with moderate to severe canal and foraminal stenosis, MRI is suggested. Soft tissues unremarkable. Impression: No acute abnormality. Reviewed, dictated and finalized at location P. ER SURVEYOR Impression: No acute abnormality.
--- NOTE | ~2025-02-27 | XR_ITS ---
EXAMINATION: XR elbow RT min 3V DATE: 02/27/2025 14:28 INDICATION: Trauma due to fall. TECHNIQUE: 3 views of the right elbow were obtained. COMPARISON: None. FINDINGS: No acute fracture or dislocation at the right elbow. No evidence of hemarthrosis in the elbow is noted on the lateral view. Mild osteoarthritis and dorsal olecranon bone spur are noted. IMPRESSION: 1. No acute bony lesions. Repeat x-ray or additional imaging with MRI is suggested if symptoms are localized and persistent. 2. Other chronic findings described above. Reviewed, dictated and finalized at location T. CAL INSTRUMENT MECHANIC IMPRESSION: 1. No acute bony lesions. Repeat x-ray or additional imaging with MRI is sugges collin if symptoms are localized and persistent. 2. Other chronic findings described above.
[2025-02-27 09:32] VITALS: BP 170/98; PULSE 64; RESP 16; TEMP 36.8; O2SAT 100
[2025-02-27 11:43] VITALS: BP 132/80; PULSE 62; RESP 15; TEMP 36.7; O2SAT 99
--- NOTE | 2025-02-27 15:34 | ED.FALL ---
HPI - Fall General Chief Complaint: Fall Stated Complaint: fell in shower Time Seen by Provider: 02/27/25 13:50 History of Present Illness HPI Narrative: Patient's bathroom is very cramped, so when he went to the bathroom he didn't have enough room to turn around, tripped and fell, hurting his right elbow and knee. He did also hit his head. He also feels like his right ear is blocked up and he cannot hear out of it and his balance has been off Related Data Allergies Allergy/AdvReac Type Severity Reaction Status Date / Time ciprofloxacin (From Cipro) Allergy Mild Rash Verified 02/27/25 09:32 Sulfa (Sulfonamide Allergy Mild rash Verified 02/27/25 09:32 Antibiotics) codeine AdvReac Mild nausea Verified 02/27/25 09:32 Review of Systems Review of Systems: All systems reviewed & are unremarkable except as noted in HPI and below PMFSH Past Medical History Medical History Hypertensive heart disease without congestive heart failure Diabetes mellitus with microalbuminuria Diabetes mellitus with hyperglycemia BMI (body mass index) 20.0-29.9 Diabetes Chronic pancreatitis COVID Diabetes type 2, controlled BMI 21.0-21.9, adult Pancreatic cancer Colonoscopy planned Bowel habit changes Weight loss Anxiety Bipolar disorder, unspecified Essential hypertension Mixed hyperlipidemia Old MS (myocardial infarction) Surgical History Surgical History H/O Whipple procedure History of splenectomy History of pancreatectomy History of endoscopy S/P CABG (coronary artery bypass graft) 6 vessel Family History Family History Father Hypertension Cerebrovascular accident Family history of coronary artery disease Family history of cardiovascular disease CHF (congestive heart failure) Mother Family history of diabetes mellitus in first degree relative CHF (congestive heart failure) Diabetes mellitus Sibling Diabetes mellitus Kidney failure Sibling Hypertension Blindness and low vision Other Family history of malignant neoplasm Social History Social History Social History: He lives with his and daughter and is raising his grandson. He has 4 children. 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 He still continues to smoke a pack a cigarettes a day. He denies any alcohol marijuana or illicit drugs. His is the durable power document review attorney for healthcare. Code status full code Smoking packs per day: 1 Smoking cigarettes per day: 20.0 Years smoked: 51 Smoking pack-years: 51.00 Smoking status: Current every day smoker Tobacco type: cigarettes Second hand tobacco smoke exposure: Yes Alcohol intake: never Substance use: never Substance use type: does not use Lack of Transportation: No Lack of Food: Never True Current Housing: I Have Housing Concerned About Future Housing: No Difficulty Paying Gas/Electric Bills: No Difficulty Paying for Meds: No Currently Unemployed: No Education: High School Diploma/GED Difficulty w/ Childcare or Family Care: No Living arrangements: with family Additional living arrangements comments: with daughter Occupation/Education: 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 Gender identity (if verbalized by the patient): Male Spiritual care concerns: No Exam Narrative: EXAMINATION OF ORGAN SYSTEMS/BODY AREAS: Constitutional: Vital signs per nursing GENERAL:No acute distress, non-toxic appearing. HEAD: Small contusion back of head EYES: EOMI, conjunctiva normal ENT: Right impacted cerumen LUNGS: Nonlabored breathing. HEART: Regular rate and rhythm ABD: Soft, nontender to palpation EXT: Normal range of motion SKIN: Skin tear right elbow; some bruising right knee NEURO: Alert. No gross focal sensory or strength deficits. PSYCH: Normal affect Course Vital Signs Vital signs: Vital Signs Temperature 98.2 F 02/27/25 09:32 Pulse Rate 64 02/27/25 09:32 Respiratory Rate 16 02/27/25 09:32 Blood Pressure 170/98 H 02/27/25 09:32 Pulse Oximetry 100 02/27/25 09:32 Oxygen Delivery Room Air 02/27/25 09:32 Temperature 98.1 F 02/27/25 11:43 Pulse Rate 91 02/27/25 15:37 Respiratory Rate 19 02/27/25 15:37 Blood Pressure 162/87 H 02/27/25 15:37 Pulse Oximetry 97 02/27/25 15:37 Oxygen Delivery Room Air 02/27/25 09:32 MDM MDM Narrative Medical decision making narrative: Patient presents here after a fall, mechanical. Did hit his head, right elbow and knee, there is a small skin tear to the right elbow and bruised to his knee, otherwise he is well-appearing, he does have cerumen impaction right ear CT head, C-spine, x-ray knee and elbow without acute abnormality Right ear irrigated thoroughly with immediate improvement in symptoms Tetanus is up-to-date, stable for discharge, with return precautions follow-up to PCP Differential Diagnosis Differential Diagnosis: Intracranial hemorrhage, fracture, cerumen impaction Imaging Data Radiologist's impression: ITS Impressions Head CT 02/27/25 14:10 Impression: 1.No acute intracranial abnormality. Cervical Spine CT 02/27/25 14:11 Impression: No acute abnormality. Elbow X-Ray 02/27/25 14:30 IMPRESSION: 1. No acute bony lesions. Repeat x-ray or additional imaging with MRI is suggested if symptoms are localized and persistent. 2. Other chronic findings described above. Knee X-Ray 02/27/25 14:35 IMPRESSION: 1. No acute bony lesions. Degenerative changes and postsurgical changes similar to prior study. MRI is indicated if symptoms are localized and persistent. Discharge Plan Discharge Clinical Impression: Fall, Skin tear, Cerumen impaction Patient Disposition: Home Condition: Stable Instructions: Head Injury (ED), Skin Tear (ED) Additional Instructions: Please follow up with your doctor; you can always return for any further issues. Patient Language: Stateless Prescriptions: No Action (DME) FreeStyle Precision Brian Strips Strip See Rx Instructions .Route Qty: 50 2RF Rx Instructions: As directed to calibrate yoseph 3 insulin glargine [Lantus Solostar U-100 Insulin] 100 unit/mL (3 mL) insulin pen 22 unit subcut QPM Qty: 15 2RF lidocaine [Lidoderm] 5 % adhesive patch,medicated 1 patch topical DAILY Qty: 15 0RF Rx Instructions: leave on most painful area for up to 12 hrs hydrocodone-acetaminophen 5-325 mg tablet 1 tablet PO Q8H PRN (Reason: pain (scale score 7-10)) Qty: 12 0RF dapagliflozin propanediol [Farxiga] 10 mg tablet 10 mg PO QAM Qty: 90 3RF insulin lispro [Humalog KwikPen Insulin] 100 unit/mL insulin pen 1 sliding scale dose subcut USEASDIRECTD Qty: 15 1RF Rx Instructions: Dose according to sliding scale after checking glucose. Max dose 80units daily lovastatin 20 mg tablet 20 mg PO HS Qty: 90 1RF (DME) FreeStyle Yoseph 3 [place] Misc See Rx Instructions .Route Qty: 1 0RF Rx Instructions: As directed metformin 1,000 mg tablet See Rx Instructions .ROUTE .COMPLEX Qty: 180 0RF Dose Instruction: Take 1 tablet by mouth twice daily Rx Instructions: Take 1 tablet by mouth twice daily Creon 36,000-114,000- 180,000 unit capsule,delayed release(DR/EC) See Rx Instructions PO .COMPLEX MDD 18 capsules a day Qty: 300 2RF Rx Instructions: 2 with meal and 1 with a snack orally; administer with meals and/or snacks lithium carbonate 300 mg capsule 600 mg PO BID Qty: 180 1RF Patient Comments: Patient states he doesnt like to take it BID, takes once daily enalapril maleate 5 mg tablet 5 mg PO DAILY Qty: 90 1RF Rx Instructions: AM (DME) FreeStyle Yoseph 3 Sensor Device See Rx Instructions .Route Qty: 6 3RF Rx Instructions: As directed fluoxetine 20 mg capsule 20 mg PO DAILY Qty: 30 2RF alprazolam 0.5 mg tablet 0.5 mg PO DAILY PRN (Reason: anxiety) Qty: 15 0RF Rx Instructions: Take 1/2 of a tablet daily as needed for anxiety. carvedilol 6.25 mg tablet 6.25 mg PO BID Qty: 180 0RF isosorbide mononitrate 30 mg tablet extended release 24 hr 30 mg PO DAILY Qty: 90 1RF Rx Instructions: AM Follow-up/Referrals: Laron Matos MD [Primary Care Provider, Family Practice] - 3 Days
[2025-02-27 15:37] VITALS: BP 162/87; PULSE 91; RESP 19; O2SAT 97
--- OUTSIDE RECORDS SUMMARY | 2025-02-27 19:27 | XMS_ITS | Patient Health Record ---
Author Organization [facility] As handsomexcutive Address [address] [facility] [address] [place] [address] Care Team Providers Care Manager Highway Name Role Phone Carlo CHAVEZ, Laron Primary Care Provider Herbie Guerra Unavailable [phone] Allergies Allergen (clinical drug ingredient) Drug/Non Drug [...] ng/ml x N 0 - 300 ng/ml DRUG MONITOR, BENZO, QN, URI [place] ([id number]) Reviewed date:06/14/2024 12:48:21 PM Interpretation: Performing Lab:[facility], [facility] [id number] [facility], Philipp [id number] Adelso Mckeon, Director - [id number] [facility] Notes/Report: FASTING: UNKNOWN Alphahydroxyalprazolam NEGATIVE <25 ng/mL [...] analytical performance characteristics have been determined by [facility]. It has not been cleared or approved by the FDA. This assay has been validated pursuant to the CLIA regulations and is used for clinical purposes. Healthcare Providers needing Interpretation assistance, please contact us at [phone] ( ) M-F, 8am to 10pm EST Reason For Referral No Information Medications Medication SIG (Take, Route, Frequency, Duration) Notes Start Date End Date Status Carvedilol 6.25 MG Tablet Oral; Duration: 90 Days Active Oreana Carbonate 300 MG Capsule TAKE 2 CAPSULES [...] Status Risk Notes Problem Bipolar 1 disorder ([id number]) Bipolar 1 disorder (F31.9) Active confirmed Vital Signs Heart Rate 84 /min 06/07/2024 Blood pressure diastolic 89 mm Hg 06/07/2024 Weight-kg 67.59 kg 06/07/2024 Blood pressure systolic 146 mm Hg 06/07/2024 Weight 149 lbs 06/07/2024 Encounters Encounter Location Date Provider Diagnosis [facility] [address] [address] 06/07/2024 Herbie Clubb Bipolar 1 disorder F31.9 ; Benign essential HTN I10 ; Nicotine use Z72.0 and Encounter for screening for depression Z13.[address] [address] 06/27/2024 Herbie Clubb [facility] [address] [place] [address] [address] 06/13/2024 Herbie Clubb [facility] [address] [place] [address] [address] 06/14/2024 Herbie Clubb [facility] [address] [place] [address] [address] 06/18/2024 Herbie Clubb Assessments Encounter Date Diagnosis [...] of treatment with your doctor and caregivers. Oreana has been associated with an increased risk of Ebstein's anomaly, a heart valve defect. Even though data suggest that the risk of Ebstein's anomaly from first trimester use of lithium is very low, an ultrasound of the heart is recommended at 16 to 20 weeks of gestation. Oreana levels should be monitored monthly in early [...] usual. Are There Any Risks For Taking Oreana For Long Periods Of Time? Hypothyroidism (low levels of thyroid hormone) may occur with long-term lithium use. Rare kidney problems have been associated with long-term use of lithium. The risk increases with high levels of lithium. Your doctor will monitor your kidney function at routine check-ups to ensure this does not occur. Summary of Black Box Warnings Oreana Toxicity Oreana toxicity is closely related to lithium blood levels and can occur at doses close to therapeutic levels; lithium levels should be monitored closely when starting the medication or if individuals experience side effects of the medication. 06/07/2024 Benign essential HTN (ICD-10 - I10) 06/07/2024 Nicotine use (ICD-10 - Z72.0) -006-Quit - Yes [place] Tobacco Quitline Call a Smoking Quitline The National Cancer [place]'s Smoking Quitline, (0-385-74E-QUIT) Smokefree.gov, which connects you with your State's Quitline, (5-514-GMIROKP) Veterans Smoking Quitline, (1-709-TAPMZIQ) 06/07/2024 Encounter for screening for depression (ICD-10 [...] interaction - Patient to follow up with recovery assistant as scheduled on June 29 Weight Loss [...] WITH TSH (7444) 06/07/2024 BASIC METABOLIC PANEL (44009) 06/07/2024 CBC (H/H, RBC, INDICES, WBC, PLT) (1759) 06/07/2024 VITAMIN B12 (927) 06/07/2024 VITAMIN D,25-OH,TOTAL,IA (52370) 025 LITHIUM (613) 06/07/2024 Insurance Providers Payer Name Payer Address Payer Phone Subscriber Number Group Number Insured Name Patient Relationship to Insured Coverage Start Date Coverage End Date [facility] [address] [place] [phone] [id number] JIMENEZ PETERS Self - patient is the insured Medical (General) History Medical History History ICD Code myocardial infarction hypertension hyperlipidemia Neuroendocrine tumor Cancer of endocrine pancreas 2020 Surgical History Surgery Date(Month/Year) cardiac cath Hospitalization History Reason Date(Month/Year) cardiac 3 prior inpatient psychiatri c hospitalizations for jackson and suicide attempt.
== END 2025-02-27 15:38 | disposition home or self-care (01) ==
PROVIDERS: Emergency Provider Emergency Medicine; PCP Family Medicine
DX: S51.011A Laceration without foreign body of right elbow, initial encounter (principal); S80.01XA Contusion of right knee, initial encounter; H61.21 Impacted cerumen, right ear; I11.9 Hypertensive heart disease without heart failure; E11.9 Type 2 diabetes mellitus without complications; E78.2 Mixed hyperlipidemia; I25.2 Old myocardial infarction; F31.9 Bipolar disorder, unspecified; F41.9 Anxiety disorder, unspecified; F17.210 Nicotine dependence, cigarettes, uncomplicated; Z95.1 Presence of aortocoronary bypass graft; Z85.07 Personal history of malignant neoplasm of pancreas; Z90.81 Acquired absence of spleen; Z90.410 Acquired total absence of pancreas; Z79.4 Long term (current) use of insulin; Z79.84 Long term (current) use of oral hypoglycemic drugs; Z79.899 Other long term (current) drug therapy; W01.0XXA Fall on same level from slipping, tripping and stumbling without subsequent striking against object, initial encounter
CPT/HCPCS: 69209; 70450; 72125; 73080; 73562; 99284